=== PATIENT | male | born 1950 | race African-American/Black ===

== ENCOUNTER 2016-10-01 13:01 | Inpatient (IN) | payer MEDICARE, OTHER, MEDICAID ==
[~2016-10-01] VITALS: Ht 182.9 cm; Wt 81.8 kg
[~2016-10-01 13:01] MED LIST: ACETAMINOPHEN-1 EAC1 ORAL; ASPIRIN81 M3 PO; ATORVASTATIN CA80 MG ORAL; PLAVIX75 MG ORAL; TIMOPTIC 0.25%1 DROP BOTH EYES
--- NOTE | 2016-10-01 13:23 | Emergency Room Report ---
History of Present Illness General Chief Complaint: Altered Level of Consciousness Source: Patient Present Illness HPI Patient presents with altered level of consciousness. Paramedics were called across the street from the hospital to the private medical building. This patient was there from [facility] for treatment of his throat cancer. Apparently he was lethargic. Accucheck in field = 92. The patient is being treated for ENT cancer. Is on multiple pain medications including fentanyl patches and Dilaudid. The patient denies any chest pain, shortness of breath, nausea, vomiting. He does state that his mouth is dry. He is NPO and fed by a G tube. 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 He denies cough or dyspnea. No chest pain, NVD, dysuria. Allergies: Coded Allergies: NO KNOWN DRUG ALLERGIES (Verified Allergy, Unknown, 03/06/14) Patient History Past Medical History: see triage record Past Surgical History: other - G tube Social History: Denies: alcohol use - prior, drug use, smoking - prior Social History Narrative snf Reviewed Nursing Documentation: PMH: Agreed, PSxH: Agreed Nursing Documentation-PMH Hx Cardiac Problems: No Hx Cancer: Yes - THROAT CA 01/2016 Hx Gastrointestinal Problems: Yes - DYSPHAGIA Hx Neurological Problems: Yes Hx Cerebrovascular Accident: Yes Review of Systems All Other Systems: negative except mentioned in HPI Physical Exam Vital Signs Date Time Temp Pulse Resp B/P Pulse Ox O2 Delivery O2 Flow Rate FiO2 10/01/16 13:01 99.0 88 14 106/72 99 Room Air Sp02 EP Interpretation: reviewed, normal General Appearance: no apparent distress, lethargic, Chronically Ill Head: normocephalic, atraumatic Eyes: bilateral eye PERRL, bilateral eye conjunctivae pale ENT: dry mucus membranes - mucoid buildup, other - exophytic lesions lips Neck: supple Respiratory: lungs clear, normal breath sounds Cardiovascular #1: regular rate, rhythm, other - PICC L arm, edema - bilateral feet Cardiovascular #2: 2+ radial (R) Gastrointestinal: normal inspection, normal bowel sounds, non tender, no mass, non-distended, other - G tube, scaphoid Rectal: heme negative stool - brown Musculoskeletal: back normal, gait/station normal, normal range of motion Neurologic: DTRs symmetric, sensory intact, motor weakness - generalized, other - mumbling speech, grossly normal, oriented - X2 Psychiatric: other - lethargic and mumbling, but coop and tries to answer Reflexes: 2+ knee (R), 2+ knee (L) Skin: warm/dry, pallor Medical Decision Making Diagnostic Impression: Primary Impression: Sepsis Qualified Codes: A41.9 - Sepsis, unspecified organism Additional Impressions: Anemia Qualified Codes: D64.9 - Anemia, unspecified Bilateral pulmonary infiltrates on chest x-ray Pneumothorax, left Lethargy Hypercalcemia ER Course Patient presents with lethargy while waiting to get treatment for throat cancer. He has a non-focal neurologic exam. Differential includes: Electrolyte abnormality, excess analgesia, adverse reaction to medication, occult infection amongst others. He is quite pale and there is a consideration for blood transfusion also. Evaluation with EKG, CXR, CT head and labs. Treatment with hydration and repeated evaluations. Non-focal neuro suggests global problem - CT head expected neg. CXR with bilateral infiltrates. Lactate elevated. High calcium. Due to elevated lactate, fluid bolus ordered and antibiotics. Discussed with Dr. Beverly. Discussed with Dr. Anthony. Dr. Hernández called stating there is small pneumothorax L. Place on 100% O2. No chest tube indicated at this time. Patient somewhat improved. Admit telemetry, Dr. Beverly. Laboratory Tests Test 10/01/16 15:35 10/01/16 17:30 10/01/16 20:30 White Blood Count 6.8 K/UL (4.8-10.8) Red Blood Count 2.80 M/UL (4.70-6.10) L Hemoglobin 8.6 G/DL (14.2-18.0) L Hematocrit 27.8 % (42.0-52.0) L Mean Corpuscular Volume 99 FL (80-99) Mean Corpuscular Hemoglobin 30.9 PG (27.0-31.0) Mean Corpuscular Hemoglobin Concent 31.1 G/DL (32.0-36.0) L Red Cell Distribution Width 17.5 % (11.6-14.8) H Platelet Count 215 K/UL (150-450) Mean Platelet Volume 6.7 FL (6.5-10.1) Neutrophils (%) (Auto) 84.3 % (45.0-75.0) H Lymphocytes (%) (Auto) 6.7 % (20.0-45.0) L Monocytes (%) (Auto) 6.8 % (1.0-10.0) Eosinophils (%) (Auto) 1.3 % (0.0-3.0) Basophils (%) (Auto) 0.8 % (0.0-2.0) Sodium Level 138 mEQ/L (135-145) Potassium Level 3.7 mEQ/L (3.4-4.9) Chloride Level 96 mEQ/L (98-107) L Carbon Dioxide Level 32 mEQ/L (20-30) H Anion Gap 10 (5-15) Blood Urea Nitrogen 18 mg/dL (7-23) Creatinine 0.8 mg/dL (0.7-1.2) Estimate Glomerular Filtration Rate > 60 mL/min (>60) Glucose Level 87 mg/dL (74-106) Lactic Acid Level 2.30 mmol/L (0.66-2.22) H 1.10 mmol/L (0.66-2.22) Calcium Level 12.5 mg/dL (8.6-10.2) H Total Bilirubin 0.7 mg/dL (0.0-1.2) Aspartate Amino Transferase (AST) 130 U/L (5-40) H Alanine Aminotransferase (ALT) 68 U/L (3-41) H Alkaline Phosphatase 68 U/L (40-129) Total Creatine Kinase 117 U/L (38-174) Troponin I < 0.30 ng/mL (<=0.30) Pro-B-Type Natriuretic Peptide 465 pg/mL (0-125) H Total Protein 7.9 g/dL (6.6-8.7) Albumin 2.7 g/dL (3.5-5.2) L Globulin 5.2 g/dL Albumin/Globulin Ratio 0.5 (1.0-2.7) L Thyroid Stimulating Hormone (TSH) 2.270 uIU/mL (0.300-4.500) Salicylates Level < 1 mg/dL (10-30) L Acetaminophen Level < 10 ug/mL (10-30) L Serum Alcohol < 10 mg/dL Urine Color Pale yellow Urine Appearance Clear Urine pH 9 (4.5-8.0) Urine Specific [place] 1.015 (1.005-1.035) Urine Protein Negative (NEGATIVE) Urine Glucose (UA) Negative (NEGATIVE) Urine Ketones Negative (NEGATIVE) Urine Occult Blood Negative (NEGATIVE) Urine Nitrite Negative (NEGATIVE) Urine Bilirubin Negative (NEGATIVE) Urine Urobilinogen Normal MG/DL (0.0-1.0) Urine Leukocyte Esterase 3+ (NEGATIVE) H Urine RBC 0-2 /HPF (0 - 0) H Urine WBC 2-4 /HPF (0 - 0) Urine Squamous Epithelial Cells None /LPF (NONE/OCC) Urine Bacteria Few /HPF (NONE) Urine Opiates Screen Negative (NEGATIVE) Urine Barbiturates Screen Negative (NEGATIVE) Phencyclidine (PCP) Screen Negative (NEGATIVE) Urine Amphetamines Screen Negative (NEGATIVE) Urine Benzodiazepines Screen Negative (NEGATIVE) Urine Cocaine Screen Negative (NEGATIVE) Urine Marijuana (THC) Screen Negative (NEGATIVE) EKG Diagnostic Results Rate: normal Rhythm: NSR ST Segments: no acute changes Rhythm Strip Diag. Results EP Interpretation: yes Rhythm: NSR, no PVC's, no ectopy Chest X-Ray Diagnostic Results Chest X-Ray Ordered: Yes # of Views/Limited/Complete: 1 View EP Interpretation: Yes Interpretation: no effusion, other - L pneumothorax = small, bilateral infiltrates CT/MRI/US Diagnostic Results CT/MRI/US Diagnostic Results : Imaging Test Ordered: head Impression age related changes Last Vital Signs Date Time Temp Pulse Resp B/P Pulse Ox O2 Delivery O2 Flow Rate FiO2 10/01/16 19:46 99.0 71 22 127/69 100 Non-Rebreather Status: improved Disposition: ADMITTED INPATIENT Condition: Serious Shreyas Ferguson M.D. Oct 01, 2016 13:23
[2016-10-01 14:19] VITALS: BP 121/78
--- NOTE | 2016-10-01 15:23 | Diagnostic Imaging Report ---
Indication: Chest pain Technique: One view of the chest Comparison: none Findings: There is suggestion of a small left apical pneumothorax. There is right apical pleural thickening. There are bilateral perihilar interstitial and alveolar infiltrates versus edema. There is also mostly interstitial disease in the right upper lobe. There is a small to moderate right-sided pleural effusion. Heart size is upper limits normal. There is a right arm midline, tip of which projects at the level of the subclavian vein. Impression: Suspect tiny left apical pneumothorax. Further followup radiograph recommended. This critical value was phoned to Dr. Ferguson in the emergency department at the time of interpretation Bilateral mostly perihilar interstitial and alveolar infiltrates versus edema and right upper lobe interstitial disease. May reflect pneumonia or pulmonary edema among other possible etiologies. Correlate with clinical findings Right-sided small to moderate pleural effusion Right apical pleural thickening Right arm midline
[2016-10-01 15:56] LABS: BASOPHILS % (AUTO) 0.8 % (0.0-2.0); EOSINOPHILS % (AUTO) 1.3 % (0.0-3.0); LYMPHOCYTES % (AUTO) 6.7 % (20.0-45.0); MEAN CORPUSCULAR HEMOGLOBIN 30.9 PG (27.0-31.0); MEAN CORPUSCULAR HGB CONC 31.1 G/DL (32.0-36.0); MEAN CORPUSCULAR VOLUME 99 FL (80-99); MEAN PLATELET VOLUME 6.7 FL (6.5-10.1); MONOCYTES % (AUTO) 6.8 % (1.0-10.0); NEUTROPHILS % (AUTO) 84.3 % (45.0-75.0); PLATELET COUNT 215 K/UL (150-450); RED CELL DISTRIBUTION WIDTH 17.5 % (11.6-14.8); WHITE BLOOD COUNT 6.8 K/UL (4.8-10.8)
[2016-10-01 16:00] VITALS: BP 124/68
[2016-10-01 16:21] LABS: TROPONIN I < 0.30 ng/mL (<=0.30)
[2016-10-01 16:24] LABS: ACETAMINOPHEN < 10 ug/mL (10-30); ALANINE AMINOTRANSFERASE 68 U/L (3-41); ALBUMIN/GLOBULIN RATIO 0.5 (1.0-2.7); ALCOHOL < 10 mg/dL; ANION GAP 10 (5-15); ASPARTATE AMINO TRANSFERASE 130 U/L (5-40); CALCIUM 12.5 mg/dL (8.6-10.2); CARBON DIOXIDE 32 mEQ/L (20-30); CHLORIDE 96 mEQ/L (98-107); CREATININE 0.8 mg/dL (0.7-1.2); GLOMERULAR FILTRATION RATE > 60 mL/min (>60); HEMOLYSIS 2; POTASSIUM 3.7 mEQ/L (3.4-4.9); SODIUM 138 mEQ/L (135-145); TOTAL PROTEIN 7.9 g/dL (6.6-8.7)
[2016-10-01 16:26] LABS: REFLEX LACTIC ACID YES OR NO YES
[2016-10-01] MEDS ORDERED: Vancomycin 1.5 GM in D5W 325 ML IVPB STA (16:39)
[2016-10-01] MEDS ORDERED: Cefepime HCl 1 GM in D5W 55 ML IVPB ONE (16:45)
[2016-10-01] MEDS ORDERED: Cefepime 1gm vial ONE (17:45)
[2016-10-01] MEDS ORDERED: Tubing IV Secondary IV ONE (17:46)
[2016-10-01] MEDS ORDERED: Tubing IV Cassette IV ONE (17:46)
[2016-10-01] MEDS ORDERED: D5W 55 ML IV ONE (17:46)
[2016-10-01 18:00] VITALS: BP 127/69
[2016-10-01 18:06] LABS: APPEARANCE,URINE CLEAR; KETONES,URINE NEGATIVE (NEGATIVE); LEUKOCYTE ESTERASE ,URINE 3+ (NEGATIVE); NITRITE,URINE NEGATIVE (NEGATIVE); PH,URINE 9 (4.5-8.0); PROTEIN,URINE NEGATIVE (NEGATIVE); UROBILINOGEN,URINE NORMAL MG/DL (0.0-1.0)
[2016-10-01 18:12] LABS: RBC,URINE 0-2 /HPF (0 - 0)
[2016-10-01 18:13] LABS: BACTERIA,URINE FEW /HPF
[2016-10-01] MEDS ORDERED: Albuterol ud Inhalation HHN PRN (18:30)
[2016-10-01] MEDS ORDERED: Miralax 17gm pkt ORAL PRN (18:30)
[2016-10-01] MEDS ORDERED: Morphine Sulfate 2mg/ml Inj IVP PRN (18:30)
--- NOTE | 2016-10-01 18:36 | History & Physical ---
History and Physical History & Physicial HISTORY AND PHYSICAL EXAMINATION DATE OF ADMISSION: ~10/01/16 CHIEF COMPLAINT: ~ AMS HISTORY OF PRESENT ILLNESS: ~This is a 65-year-old, male with history of CVA, hypertension, scalp folliculitis, glaucoma, hepatitis B, major depressive disorder, hyperlipidemia, CKD stage 3, tonsillar SCC s/p PEG placement who presents to ER from home for AMS. [facility] and was brought over to ER for AMS. He has a lot of secretions from throat and has failed multiple swallow evaluations after which he had a PEG placed in the past. PET scan recently at [facility] on 09/27 showed increase hypermetabolic activity in lungs PAST MEDICAL HISTORY: ~Includes folliculitis, history of CVA, hepatitis B, glaucoma, chronic lower back pain, major depressive disorder, erectile dysfunction, history of noncompliance, left-sided hip pain with sciatica, right inguinal hernia. ~ PAST SURGICAL HISTORY: ~None. ALLERGIES: ~No known drug allergies. MEDICATIONS: ~ Active Scripts Medications Dose Route/Sig Max Daily Dose Days Date Category Tylenol #3 Tab* (Acetaminophen/Codeine Phosphate) 1 Each Tablet 1 Tab ORAL Q4H PRN 07/28/14 Reported Lipitor* (Atorvastatin Calcium) 80 Mg Tablet 80 Mg ORAL BEDTIME 03/09/14 Rx Aspirin 81 Mg Tab.chew 81 Mg PO DAILY 03/09/14 Rx Timolol Maleate 1 Drop Soln 1 Drop BOTH EYES DAILY 03/06/14 Reported SOCIAL HISTORY: ~Patient does not smoke, drink alcohol, or use any drugs. REVIEW OF SYSTEMS: A 12-point review of systems is negative except for pertinent positives mentioned above. FAMILY HISTORY: ~Noncontributory. PHYSICAL EXAMINATION: Last 24 Hour Vital Signs Date Time Temp Pulse Resp B/P Pulse Ox O2 Delivery O2 Flow Rate FiO2 10/01/16 16:00 70 20 124/68 100 Non-Rebreather 10/01/16 14:19 68 22 121/78 97 Room Air 10/01/16 13:01 99.0 88 14 106/72 99 Room Air GENERAL: ~In no acute distress. ~The patient has a muffled voice. has lots of secretions from throat HEENT: ~~NC/AT ~ NECK: ~~Supple. ~No JVD CARDIOVASCULAR: ~~Regular rate and rhythm. ~Normal S1, S2. ~~ LUNGS: ~Clear to auscultation bilaterally. ~No crackles, rhonchi, or rales. ~ ABDOMEN: ~~Soft, no TTP. + G-tube with bilious material EXTREMITIES: ~~No clubbing, cyanosis, or edema. ~~ SKIN: ~Normal skin color. ~No lesions. PSYCH: ~Appropriate mood and affect. NEURO: Can more all extremities. LABORATORY: ~ Laboratory Tests Test 10/01/16 15:35 10/01/16 17:30 White Blood Count 6.8 K/UL (4.8-10.8) Red Blood Count 2.80 M/UL (4.70-6.10) L Hemoglobin 8.6 G/DL (14.2-18.0) L Hematocrit 27.8 % (42.0-52.0) L Mean Corpuscular Volume 99 FL (80-99) Mean Corpuscular Hemoglobin 30.9 PG (27.0-31.0) Mean Corpuscular Hemoglobin Concent 31.1 G/DL (32.0-36.0) L Red Cell Distribution Width 17.5 % (11.6-14.8) H Platelet Count 215 K/UL (150-450) Mean Platelet Volume 6.7 FL (6.5-10.1) Neutrophils (%) (Auto) 84.3 % (45.0-75.0) H Lymphocytes (%) (Auto) 6.7 % (20.0-45.0) L Monocytes (%) (Auto) 6.8 % (1.0-10.0) Eosinophils (%) (Auto) 1.3 % (0.0-3.0) Basophils (%) (Auto) 0.8 % (0.0-2.0) Sodium Level 138 mEQ/L (135-145) Potassium Level 3.7 mEQ/L (3.4-4.9) Chloride Level 96 mEQ/L (98-107) L Carbon Dioxide Level 32 mEQ/L (20-30) H Anion Gap 10 (5-15) Blood Urea Nitrogen 18 mg/dL (7-23) Creatinine 0.8 mg/dL (0.7-1.2) Estimat Glomerular Filtration Rate > 60 mL/min (>60) Glucose Level 87 mg/dL (74-106) Lactic Acid Level 2.30 mmol/L (0.66-2.22) H Calcium Level 12.5 mg/dL (8.6-10.2) H Total Bilirubin 0.7 mg/dL (0.0-1.2) Aspartate Amino Transf (AST/SGOT) 130 U/L (5-40) H Alanine Aminotransferase (ALT/SGPT) 68 U/L (3-41) H Alkaline Phosphatase 68 U/L (40-129) Total Creatine Kinase 117 U/L (38-174) Troponin I < 0.30 ng/mL (<=0.30) Pro-B-Type Natriuretic Peptide 465 pg/mL (0-125) H Total Protein 7.9 g/dL (6.6-8.7) Albumin 2.7 g/dL (3.5-5.2) L Globulin 5.2 g/dL Albumin/Globulin Ratio 0.5 (1.0-2.7) L Thyroid Stimulating Hormone (TSH) 2.270 uIU/mL (0.300-4.500) Salicylates Level < 1 mg/dL (10-30) L Acetaminophen Level < 10 ug/mL (10-30) L Serum Alcohol < 10 mg/dL Urine Color Pale yellow Urine Appearance Clear Urine pH 9 (4.5-8.0) Urine Specific [place] 1.015 (1.005-1.035) Urine Protein Negative (NEGATIVE) Urine Glucose (UA) Negative (NEGATIVE) Urine Ketones Negative (NEGATIVE) Urine Occult Blood Negative (NEGATIVE) Urine Nitrite Negative (NEGATIVE) Urine Bilirubin Negative (NEGATIVE) Urine Urobilinogen Normal MG/DL (0.0-1.0) Urine Leukocyte Esterase 3+ (NEGATIVE) H Urine RBC 0-2 /HPF (0 - 0) H Urine WBC 2-4 /HPF (0 - 0) Urine Squamous Epithelial Cells None /LPF (NONE/OCC) Urine Bacteria Few /HPF (NONE) Urine Opiates Screen Negative (NEGATIVE) Urine Barbiturates Screen Negative (NEGATIVE) Phencyclidine (PCP) Screen Negative (NEGATIVE) Urine Amphetamines Screen Negative (NEGATIVE) Urine Benzodiazepines Screen Negative (NEGATIVE) Urine Cocaine Screen Negative (NEGATIVE) Urine Marijuana (THC) Screen Negative (NEGATIVE) CXR - ?bilateral upper lobe infiltrates vs metastasis 09/27 at [facility] PET SCAN - Impression 1. Progression of the extent of malignant disease in the left our pharyngeal soft tissues 2. Extensive hypermetabolic lymphadenopathy in mediastinal and hilar regions, extending to left upper abdominal retrocrural region 3. Extensive pulmonary parenchymal abnormalities that are intensely hypermetabolic, with greater extent of nodular masses on CT. Presence of extensive malignant disease is suspected however the differential for this PET/CT appearance includes widespread inflammatory/infectious processes. Left lower lobe and right middle lobe opacities may be suitable for CT-guided biopsy, if indicated to establish pathologic diagnosis. 4. 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 2. Hepatitis C. 3.History of cerebrovascular accident. 4.Hepatitis B. 5.Major depressive disorder. 6.Hypertension. 7.Chronic lower back pain. 8. ~~Malnutrition s/p PEG placement 9. ~~Failure to thrive 11. ~Aspiration PNA 12. ~~ Possible bilateral lung metastasis PLAN: 1 Tele 2 Tube feeds - hold 3. ~~IVF - D5NS @ 75cc/hr ; suction Q 2 hours 4. ~~Resume meds from SNF 5. ~~NPO 6. ~~Heme/Onc consult with Dr. Anthony 7. ~~ abx - Zosyn 8. ~~Will discuss CT chest with IV contrast DVT - heparin CLAUDIA HARRIS M.D. Oct 01, 2016 18:36
[2016-10-01] MEDS ORDERED: LEXAPRO20 MG ORAL (19:07)
[2016-10-01] MEDS ORDERED: SENNA8.6 M2 PO (19:07)
[2016-10-01] MEDS ORDERED: GABAPENTIN300 MG ORAL (19:07)
[2016-10-01] MEDS ORDERED: CATAPRES0.1 MG ORAL (19:07)
[2016-10-01] MEDS ORDERED: DILAUDID2 MG ORAL (19:07)
[2016-10-01] MEDS ORDERED: ATORVASTATIN CA80 MG ORAL (19:07)
[2016-10-01] MEDS ORDERED: MIRALAX17 G2 ORAL (19:07)
[2016-10-01] MEDS ORDERED: FENTANYL1 EAC4 TDERMAL (19:07)
[2016-10-01] MEDS ORDERED: OXYCODONE-ACET1 EAC3 ORAL (19:07)
[2016-10-01] MEDS ORDERED: GLYCOPYRROLATE1 MG PO (19:07)
[2016-10-01] MEDS ORDERED: LORAZEPAM1 MG ORAL (19:07)
[2016-10-01] MEDS ORDERED: VANCOMYCIN1 GM/2502 IV (19:07)
[2016-10-01] MEDS ORDERED: TYLENOL650 MG/20. ORAL (19:07)
[2016-10-01] MEDS ORDERED: OXYCODON-ACETA1 EAC2 ORAL (19:07)
[2016-10-01] MEDS ORDERED: LOPERAMIDE2 M1 PO (19:07)
[2016-10-01] MEDS ORDERED: DILAUDID4 MG ORAL (19:07)
[2016-10-01] MEDS ORDERED: PREVACID30 MG ORAL (19:07)
[2016-10-01] MEDS ORDERED: AMLODIPINE BESY10 MG ORAL (19:07)
[2016-10-01] MEDS ORDERED: COMPAZINE10 MG ORAL (19:07)
[2016-10-01] MEDS ORDERED: TAMSULOSIN HCL0.4 MG ORAL (19:07)
[2016-10-01] MEDS ORDERED: TIMOPTIC 0.25%1 EACH OP (19:07)
[2016-10-01] MEDS ORDERED: TIMOPTIC 0.5%1 EACH OP (19:17)
[2016-10-01] MEDS ORDERED: ACETAMINOPHEN325 M1 GT (19:17)
[2016-10-01] MEDS ORDERED: MIRALAX17 G2 GT (19:20)
[2016-10-01] MEDS ORDERED: ANTI-DIARRHEA2 MG GT (19:20)
[2016-10-01] MEDS ORDERED: ZOFRAN ODT8 MG GT (19:24)
[2016-10-01] MEDS ORDERED: MULTIVITAMINS1 EAC8 GT (19:24)
[2016-10-01] MEDS ORDERED: SENNA8.6 M2 GT (19:29)
[2016-10-01] MEDS ORDERED: PRO-STAT LIQUID30 ML ORAL (19:29)
[2016-10-01] MEDS ORDERED: ROXICODONE15 MG ORAL (19:33)
[2016-10-01] MEDS ORDERED: ROXICODONE15 MG GT (19:33)
[2016-10-01] MEDS ORDERED: TRANSDERM-SCOP1 EACH TD (19:36)
[2016-10-01] MEDS ORDERED: Vancomycin 1gm inj IVPB ONE (19:53)
[2016-10-01] MEDS ORDERED: Atorvastatin 80mg tab ORAL SCH (21:00)
[2016-10-01] MEDS: Heparin 5000 units/ml inj SUBQ SCH (21:44)
[2016-10-01] MEDS: Piperacillin/Tazobactam 3.375 GM in NS 110 ML IVPB SCH (21:59)
[2016-10-02] VITALS: BP 114/58
[2016-10-02 04:00] VITALS: BP 116/63
[2016-10-02] MEDS: Piperacillin/Tazobactam 3.375 GM in NS 110 ML IVPB SCH ×3 (05:32→21:24)
[2016-10-02 07:09] LABS: MEAN CORPUSCULAR HEMOGLOBIN 31.4 PG (27.0-31.0); MEAN CORPUSCULAR HGB CONC 31.4 G/DL (32.0-36.0); MEAN CORPUSCULAR VOLUME 100 FL (80-99); MEAN PLATELET VOLUME 5.9 FL (6.5-10.1); PLATELET COUNT 240 K/UL (150-450); RED BLOOD COUNT 2.69 M/UL (4.70-6.10); WHITE BLOOD COUNT 9.1 K/UL (4.8-10.8)
[2016-10-02 07:14] LABS: ANION GAP 10 (5-15); CALCIUM 12.3 mg/dL (8.6-10.2); CARBON DIOXIDE 30 mEQ/L (20-30); CHLORIDE 98 mEQ/L (98-107); CREATININE 0.7 mg/dL (0.7-1.2); GLOMERULAR FILTRATION RATE > 60 mL/min (>60); HEMOLYSIS 0; POTASSIUM 3.6 mEQ/L (3.4-4.9); SODIUM 138 mEQ/L (135-145)
--- NOTE | 2016-10-02 08:31 | Diagnostic Imaging Report ---
Indication: Altered level of consciousness Technique: spiral acquisitions obtained through the brain. Angled axial and coronal 5 x 5 mm slices were reconstructed. No IV contrast utilized. Radiation dose was minimized using automated exposure control Total dose length product 1544 mGycm. CTDIvol(s) 70 mGy Comparison: Brain MRI dated 03/08/2014 FINDINGS: No acute hemorrhage or edema. No mass effect or midline shift. There is age-related enlargement of the ventricles and extra axial CSF spaces. There is periventricular deep white matter ischemic change. Old lacunar infarcts are seen in the right basal ganglia and norman radiata. Normal guevara-white differentiation. Visualized orbits are unremarkable. Visualized sinuses are unremarkable. Intact calvarium. There is calvarial hyperostosis. IMPRESSION: Chronic and age-related changes. Negative for acute intracranial bleed or mass effect The CT scanner at [facility] is accredited by the [employer] and the scans are performed using protocols designed to limit radiation exposure to as low as reasonably achievable to attain images of sufficient resolution adequate for diagnostic evaluation
[2016-10-02 08:32] VITALS: BP 140/83
[2016-10-02] MEDS: Heparin 5000 units/ml inj SUBQ SCH ×2 (08:52→20:55)
[2016-10-02] MEDS: Timoptic 0.25% Op Soln 2.5ml BOTH EYES SCH (08:52)
[2016-10-02] MEDS ORDERED: Dyna-Hex 2% Top Sol 8oz TOPIC ONE (09:00)
[2016-10-02] MEDS ORDERED: Aspirin Baby 81mg ORAL SCH (09:00)
[2016-10-02 10:48] LABS: BAND NEUTROPHILS % (MANUAL) 1 % (0-8); BASOPHILS % (MANUAL) 0 % (0-2); EOSINOPHILS % (MANUAL) 0 % (0-3); LYMPHOCYTES % (MANUAL) 10 % (20-45); NEUTROPHILS % (MANUAL) 83 % (45-75); PLATELET ESTIMATE ADEQUATE; PLATELET MORPHOLOGY NORMAL; TOTAL CELLS COUNTED 100
[2016-10-02 10:49] LABS: ANISOCYTOSIS 2+; HYPOCHROMASIA 1+; MACROCYTES 1+
[2016-10-02] MEDS ORDERED: Tamsulosin 0.4mg cap ORAL SCH (11:00)
[2016-10-02 12:00] VITALS: BP 132/75
[2016-10-02] MEDS: D5NS 1,000 ML IV SCH (13:07)
--- NOTE | 2016-10-02 13:14 | Internal Med Progress Note ---
Subjective Physician Name Shreyas Harris Attending Physician Shreyas Harris M.D. Current Medications Medications (Trade) Dose Ordered Sig/Dmitri Route PRN Reason Start Time Stop Time Status Last Admin Dose Admin Acetaminophen (Tylenol) 650 mg Q4H PRN ORAL Mild Pain (Pain Scale 1-3) 10/01/16 18:30 10/31/16 18:29 Albuterol Sulfate (Proventil) 2.5 mg Q4H PRN HHN Shortness of Breath 10/01/16 18:30 10/06/16 18:29 Aspirin (ASA) 81 mg DAILY ORAL 10/02/16 09:00 11/01/16 08:59 Atorvastatin Calcium (Lipitor) 80 mg BEDTIME ORAL 10/01/16 21:00 10/31/16 20:59 10/01/16 21:41 Atorvastatin Calcium (Lipitor) 80 mg DAILY ORAL 10/03/16 11:00 11/02/16 10:59 Bisacodyl (Dulcolax) 10 mg HSPRN PRN RECTAL Constipation 10/01/16 18:30 10/31/16 18:29 Dextrose (Dextrose 50%) STAT PRN IV Hypoglycemia 10/01/16 18:30 10/31/16 18:29 Dextrose/Sodium Chloride (D5ns) 1,000 ml @ 75 mls/hr [id number] IV 10/02/16 13:30 11/01/16 13:29 10/02/16 13:07 Gabapentin (Neurontin) 300 mg THREE TIMES A DAY ORAL 10/02/16 13:00 11/01/16 12:59 Heparin Sodium (Porcine) (Heparin 5000 units/ml) 5,000 units EVERY 12 HOURS SUBQ 10/01/16 21:00 10/31/16 20:59 10/01/16 21:44 Morphine Sulfate (Morphine Sulfate) 2 mg Q4H PRN IVP Moderate Pain (Pain Scale 4-6) 10/01/16 18:30 10/08/16 18:29 Ondansetron HCl (Zofran) 4 mg Q6H PRN IVP Nausea & Vomiting 10/01/16 18:30 10/31/16 18:29 Piperacillin Sod/ Tazobactam Sod/ Sodium Chloride (Zosyn/Sodium Chloride) 110 ml @ 27.5 mls/hr Q8HR IVPB 10/01/16 22:00 10/08/16 21:59 10/02/16 13:01 Polyethylene Glycol (Miralax) 17 gm HSPRN PRN ORAL Constipation 10/01/16 18:30 10/31/16 18:29 Tamsulosin HCl 0.4 mg 0.4 mg DAILY ORAL 10/02/16 11:00 11/01/16 10:59 Timolol Maleate 1 drop 1 drop DAILY BOTH EYES 10/02/16 09:00 11/01/16 08:59 10/02/16 08:52 Allergies: Coded Allergies: NO KNOWN DRUG ALLERGIES (Verified Allergy, Unknown, 03/06/14) ROS Limited/Unobtainable: Yes - still having confusion Subjective didnt sleep well still confused muffled voice denies SOB or pain 12 pt ROS limited bc of mental status Objective Last Vital Signs Date Time Temp Pulse Resp B/P Pulse Ox O2 Delivery O2 Flow Rate FiO2 10/02/16 12:00 97.0 72 20 132/75 96 Nasal Cannula 2.0 Laboratory Tests Test 10/01/16 15:35 10/01/16 17:30 10/01/16 20:30 10/02/16 05:25 White Blood Count 6.8 K/UL (4.8-10.8) 9.1 K/UL (4.8-10.8) Red Blood Count 2.80 M/UL (4.70-6.10) L 2.69 M/UL (4.70-6.10) L Hemoglobin 8.6 G/DL (14.2-18.0) L 8.5 G/DL (14.2-18.0) L Hematocrit 27.8 % (42.0-52.0) L 27.0 % (42.0-52.0) L Mean Corpuscular Volume 99 FL (80-99) 100 FL (80-99) H Mean Corpuscular Hemoglobin 30.9 PG (27.0-31.0) 31.4 PG (27.0-31.0) H Mean Corpuscular Hemoglobin Concent 31.1 G/DL (32.0-36.0) L 31.4 G/DL (32.0-36.0) L Red Cell Distribution Width 17.5 % (11.6-14.8) H 18.0 % (11.6-14.8) H Platelet Count 215 K/UL (150-450) 240 K/UL (150-450) Mean Platelet Volume 6.7 FL (6.5-10.1) 5.9 FL (6.5-10.1) L Neutrophils (%) (Auto) 84.3 % (45.0-75.0) H % (45.0-75.0) Lymphocytes (%) (Auto) 6.7 % (20.0-45.0) L % (20.0-45.0) Monocytes (%) (Auto) 6.8 % (1.0-10.0) % (1.0-10.0) Eosinophils (%) (Auto) 1.3 % (0.0-3.0) % (0.0-3.0) Basophils (%) (Auto) 0.8 % (0.0-2.0) % (0.0-2.0) Sodium Level 138 mEQ/L (135-145) 138 mEQ/L (135-145) Potassium Level 3.7 mEQ/L (3.4-4.9) 3.6 mEQ/L (3.4-4.9) Chloride Level 96 mEQ/L (98-107) L 98 mEQ/L (98-107) Carbon Dioxide Level 32 mEQ/L (20-30) H 30 mEQ/L (20-30) Anion Gap 10 (5-15) 10 (5-15) Blood Urea Nitrogen 18 mg/dL (7-23) 15 mg/dL (7-23) Creatinine 0.8 mg/dL (0.7-1.2) 0.7 mg/dL (0.7-1.2) Estimat Glomerular Filtration Rate > 60 mL/min (>60) > 60 mL/min (>60) Glucose Level 87 mg/dL (74-106) 80 mg/dL (74-106) Lactic Acid Level 2.30 mmol/L (0.66-2.22) H 1.10 mmol/L (0.66-2.22) Calcium Level 12.5 mg/dL (8.6-10.2) H 12.3 mg/dL (8.6-10.2) H Total Bilirubin 0.7 mg/dL (0.0-1.2) Aspartate Amino Transf (AST/SGOT) 130 U/L (5-40) H Alanine Aminotransferase (ALT/SGPT) 68 U/L (3-41) H Alkaline Phosphatase 68 U/L (40-129) Total Creatine Kinase 117 U/L (38-174) Troponin I < 0.30 ng/mL (<=0.30) Pro-B-Type Natriuretic Peptide 465 pg/mL (0-125) H Total Protein 7.9 g/dL (6.6-8.7) Albumin 2.7 g/dL (3.5-5.2) L Globulin 5.2 g/dL Albumin/Globulin Ratio 0.5 (1.0-2.7) L Thyroid Stimulating Hormone (TSH) 2.270 uIU/mL (0.300-4.500) Salicylates Level < 1 mg/dL (10-30) L Acetaminophen Level < 10 ug/mL (10-30) L Serum Alcohol < 10 mg/dL Urine Color Pale yellow Urine Appearance Clear Urine pH 9 (4.5-8.0) Urine Specific [place] 1.015 (1.005-1.035) Urine Protein Negative (NEGATIVE) Urine Glucose (UA) Negative (NEGATIVE) Urine Ketones Negative (NEGATIVE) Urine Occult Blood Negative (NEGATIVE) Urine Nitrite Negative (NEGATIVE) Urine Bilirubin Negative (NEGATIVE) Urine Urobilinogen Normal MG/DL (0.0-1.0) Urine Leukocyte Esterase 3+ (NEGATIVE) H Urine RBC 0-2 /HPF (0 - 0) H Urine WBC 2-4 /HPF (0 - 0) Urine Squamous Epithelial Cells None /LPF (NONE/OCC) Urine Bacteria Few /HPF (NONE) Urine Opiates Screen Negative (NEGATIVE) Urine Barbiturates Screen Negative (NEGATIVE) Phencyclidine (PCP) Screen Negative (NEGATIVE) Urine Amphetamines Screen Negative (NEGATIVE) Urine Benzodiazepines Screen Negative (NEGATIVE) Urine Cocaine Screen Negative (NEGATIVE) Urine Marijuana (THC) Screen Negative (NEGATIVE) Differential Total Cells Counted 100 Neutrophils % (Manual) 83 % (45-75) H Lymphocytes % (Manual) 10 % (20-45) L Monocytes % (Manual) 6 % (1-10) Eosinophils % (Manual) 0 % (0-3) Basophils % (Manual) 0 % (0-2) Band Neutrophils 1 % (0-8) Platelet Estimate Adequate Platelet Morphology Normal Hypochromasia 1+ Anisocytosis 2+ Macrocytosis 1+ Intake and Output 10/01/16 10/02/16 19:00 07:00 Intake Total 0 ml 662.5 ml Output Total 2700 ml Balance 0 ml -2037.5 ml Intake Oral 0 ml IV Total 662.5 ml Output Urine Total 2700 ml Objective GENERAL: ~In no acute distress. ~The patient has a muffled voice. has lots of secretions from throat HEENT: ~~NC/AT ~ NECK: ~~Supple. ~No JVD CARDIOVASCULAR: ~~Regular rate and rhythm. ~Normal S1, S2. ~~ LUNGS: ~Clear to auscultation bilaterally. ~No crackles, rhonchi, or rales. ~ ABDOMEN: ~~Soft, no TTP. + G-tube with bilious material EXTREMITIES: ~~No clubbing, cyanosis, or edema. ~~ SKIN: ~Normal skin color. ~No lesions. PSYCH: ~Appropriate mood and affect. NEURO: Can more all extremities. 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 2. Hepatitis C. 3.History of cerebrovascular accident. 4.Hepatitis B. 5.Major depressive disorder. 6.Hypertension. 7.Chronic lower back pain. 8. ~~Malnutrition s/p PEG placement 9. ~~Failure to thrive 11. ~Aspiration PNA 12. ~~ Possible bilateral lung metastasis 13. ~~Metabolic encephalopathy 2/2 PNA 14. ~~Endocarditis PLAN: 1 Tele 2 Tube feeds - restart nutren @ 30cc/hr with free water 400cc TID 3. ~~IVF - D5NS @ 75cc/hr ; suction orally Q 2 hours; patient is most likely chronically aspirating on secretions. continue scopolamine patch 4. ~~Resume meds from SNF 5. ~~NPO 6. ~~Heme/Onc consult with Dr. Anthony 7. ~~ abx - Zosyn ; Vancomycin for endocarditis (dx at [facility] and needs to complete 6 weeks) 8. ~~Will discuss CT chest with IV contrast 9. ~~resume home medications DVT - heparin SHREYAS HARRIS M.D. Oct 02, 2016 13:14
[2016-10-02] MEDS ORDERED: Miralax 17gm pkt GT PRN (13:30)
[2016-10-02] MEDS ORDERED: oxyCODONE 15mg IR tab GT PRN ×2 (13:30)
--- NOTE | 2016-10-02 14:10 | Consultation ---
History of Present Illness General Date patient seen: Oct 02, 2016 Chief Complaint: Altered Level of Consciousness Referring physician: Dr. Beverly Present Illness HPI 65 year old male with hx of throat cancer, ? lung mets, Hep C, B, CVA, PEG presents with altered level of consciousness at ENT doctors office. His mental status improved somewhat en route to [facility]. His initial cxr showed that he has extensive bilateral infiltrate. On my evaluation, he was very lethargic. Allergies: Coded Allergies: NO KNOWN DRUG ALLERGIES (Verified Allergy, Unknown, 03/06/14) Medication History Scheduled Amino Acids/Protein Hydrolys (Pro-Stat Liquid), 30 ML ORAL DAILY, (Reported) Aspirin (Aspirin), 81 MG PO DAILY Atorvastatin Calcium* (Lipitor*), 80 MG ORAL BEDTIME Atorvastatin Calcium* (Lipitor*), 80 MG ORAL DAILY, (Reported) Escitalopram Oxalate* (Lexapro*), 20 MG ORAL DAILY, (Reported) Gabapentin* (Gabapentin*), 300 MG ORAL THREE TIMES A DAY, (Reported) Glycopyrrolate (Glycopyrrolate), 1 MG PO TWICE A DAY, (Reported) Multivitamin With Minerals (Multivitamins With Minerals*), 1 TAB GT DAILY, ( Reported) Polyethylene Glycol 3350* (Miralax*), 17 GM GT DAILY, (Reported) Scopolamine (Transderm-Scop), 1 EACH TD Q72H, (Reported) Tamsulosin Hcl (Tamsulosin Hcl*), 0.4 MG ORAL DAILY, (Reported) Timolol Maleate/Pf (Timoptic 0.5% Ocudose Drop), 1 EACH OP DAILY, (Reported) Scheduled PRN Acetaminophen* (Acetaminophen 325MG Tablet*), 650 MG GT Q4H PRN for Mild Pain ( Pain Scale 1-3), (Reported) Loperamide Hcl (Anti-Diarrhea), 2 MG GT for Diarrhea, (Reported) OXYCODONE HCl* (Roxicodone*), 15 MG GT Q4HR PRN for Mild Pain (Pain Scale 1-3), (Reported) OXYCODONE HCl* (Roxicodone*), 30 MG ORAL Q4HR PRN for Severe Pain (Pain Scale 7- 10), (Reported) Ondansetron Odt* (Zofran Odt*), 8 MG GT Q8HR PRN for Nausea & Vomiting, ( Reported) Sennosides (Senna), 17.2 MG GT QHS PRN for Constipation, (Reported) Miscellaneous Medications Fentanyl 12MCG Patch* (Fentanyl 12MCG Patch*), 1 PATCH TDERMAL, (Reported) Vancomycin Hcl/D5w (Vancomycin-D5w 1 G/250 Ml), 500 MG IV, (Reported) Discontinued Medications Acetaminophen With Codeine (T#3) (Tylenol #3 Tab*), 1 TAB ORAL Q4H PRN for For Pain, (Reported) Discontinued Reason: Pt stopped taking med Amlodipine Besylate* (Amlodipine Besylate*), 10 MG ORAL DAILY, (Reported) Discontinued Reason: Therapy completed Clonidine Hcl* (Catapres*), 0.1 MG ORAL DAILY, (Reported) Discontinued Reason: Therapy completed Hydromorphone HCl (Dilaudid), 2 MG ORAL Q4H, (Reported) Discontinued Reason: Therapy completed Hydromorphone HCl (Dilaudid), 4 MG ORAL Q4H, (Reported) Discontinued Reason: Therapy completed Lansoprazole* (Prevacid*), 30 MG ORAL DAILY, (Reported) Discontinued Reason: Therapy completed Lorazepam* (Lorazepam*), 1 MG ORAL HS, (Reported) Discontinued Reason: Therapy completed Oxycodone Hcl/Acetaminophen 5-325* (Oxycodone-Acetaminophen 5-325*), 1 TAB ORAL Q6H PRN for For Pain, (Reported) Discontinued Reason: Therapy completed Oxycodone Hcl/Acetaminophen 7.5-325 (Oxycodon-Acetaminophen 7.5-325), 2 TAB ORAL Q4H, (Reported) Discontinued Reason: Therapy completed Prochlorperazine (Compazine*), 10 MG ORAL Q6H PRN for Nausea & Vomiting, ( Reported) Discontinued Reason: Therapy completed Patient History Healthcare decision maker Resuscitation status Full Code Advanced Directive on File No Past Medical/Surgical History Past Medical/Surgical History: (1) HTN (hypertension) (2) CVA (cerebral infarction) (3) Hepatitis B Review of Systems All Other Systems: negative except mentioned in HPI Physical Exam General Appearance: cachetic Lines, tubes and drains: peripheral HEENT: normocephalic, atraumatic Neck: non-tender, normal alignment Respiratory/Chest: chest wall non-tender, rhonchi - left, stridor Cardiovascular/Chest: normal peripheral pulses, normal rate Abdomen: normal bowel sounds, non tender, other - PEG feeding Genitourinary/Rectal: normal genital exam Extremities: normal range of motion Skin Exam: normal pigmentation Last 24 Hour Vital Signs Date Time Temp Pulse Resp B/P Pulse Ox O2 Delivery O2 Flow Rate FiO2 10/02/16 12:00 97.0 72 20 132/75 96 Nasal Cannula 2.0 10/02/16 08:32 97.0 84 20 140/83 96 Room Air 10/02/16 04:00 98.4 95 20 116/63 92 Nasal Cannula 10/02/16 03:43 94 10/02/16 00:04 86 10/02/16 00:00 98.4 103 22 114/58 94 Nasal Cannula 10/01/16 20:29 70 10/01/16 19:46 99.0 71 22 127/69 100 Non-Rebreather 10/01/16 18:00 71 22 127/69 100 Non-Rebreather 10/01/16 16:00 70 20 124/68 100 Non-Rebreather 10/01/16 14:19 68 22 121/78 97 Room Air Intake and Output 10/01/16 10/02/16 19:00 07:00 Intake Total 0 ml 662.5 ml Output Total 2700 ml Balance 0 ml -2037.5 ml Intake Oral 0 ml IV Total 662.5 ml Output Urine Total 2700 ml Laboratory Tests Test 10/01/16 15:35 10/01/16 17:30 10/01/16 20:30 10/02/16 05:25 White Blood Count 6.8 K/UL (4.8-10.8) 9.1 K/UL (4.8-10.8) Red Blood Count 2.80 M/UL (4.70-6.10) L 2.69 M/UL (4.70-6.10) L Hemoglobin 8.6 G/DL (14.2-18.0) L 8.5 G/DL (14.2-18.0) L Hematocrit 27.8 % (42.0-52.0) L 27.0 % (42.0-52.0) L Mean Corpuscular Volume 99 FL (80-99) 100 FL (80-99) H Mean Corpuscular Hemoglobin 30.9 PG (27.0-31.0) 31.4 PG (27.0-31.0) H Mean Corpuscular Hemoglobin Concent 31.1 G/DL (32.0-36.0) L 31.4 G/DL (32.0-36.0) L Red Cell Distribution Width 17.5 % (11.6-14.8) H 18.0 % (11.6-14.8) H Platelet Count 215 K/UL (150-450) 240 K/UL (150-450) Mean Platelet Volume 6.7 FL (6.5-10.1) 5.9 FL (6.5-10.1) L Neutrophils (%) (Auto) 84.3 % (45.0-75.0) H % (45.0-75.0) Lymphocytes (%) (Auto) 6.7 % (20.0-45.0) L % (20.0-45.0) Monocytes (%) (Auto) 6.8 % (1.0-10.0) % (1.0-10.0) Eosinophils (%) (Auto) 1.3 % (0.0-3.0) % (0.0-3.0) Basophils (%) (Auto) 0.8 % (0.0-2.0) % (0.0-2.0) Sodium Level 138 mEQ/L (135-145) 138 mEQ/L (135-145) Potassium Level 3.7 mEQ/L (3.4-4.9) 3.6 mEQ/L (3.4-4.9) Chloride Level 96 mEQ/L (98-107) L 98 mEQ/L (98-107) Carbon Dioxide Level 32 mEQ/L (20-30) H 30 mEQ/L (20-30) Anion Gap 10 (5-15) 10 (5-15) Blood Urea Nitrogen 18 mg/dL (7-23) 15 mg/dL (7-23) Creatinine 0.8 mg/dL (0.7-1.2) 0.7 mg/dL (0.7-1.2) Estimat Glomerular Filtration Rate > 60 mL/min (>60) > 60 mL/min (>60) Glucose Level 87 mg/dL (74-106) 80 mg/dL (74-106) Lactic Acid Level 2.30 mmol/L (0.66-2.22) H 1.10 mmol/L (0.66-2.22) Calcium Level 12.5 mg/dL (8.6-10.2) H 12.3 mg/dL (8.6-10.2) H Total Bilirubin 0.7 mg/dL (0.0-1.2) Aspartate Amino Transf (AST/SGOT) 130 U/L (5-40) H Alanine Aminotransferase (ALT/SGPT) 68 U/L (3-41) H Alkaline Phosphatase 68 U/L (40-129) Total Creatine Kinase 117 U/L (38-174) Troponin I < 0.30 ng/mL (<=0.30) Pro-B-Type Natriuretic Peptide 465 pg/mL (0-125) H Total Protein 7.9 g/dL (6.6-8.7) Albumin 2.7 g/dL (3.5-5.2) L Globulin 5.2 g/dL Albumin/Globulin Ratio 0.5 (1.0-2.7) L Thyroid Stimulating Hormone (TSH) 2.270 uIU/mL (0.300-4.500) Salicylates Level < 1 mg/dL (10-30) L Acetaminophen Level < 10 ug/mL (10-30) L Serum Alcohol < 10 mg/dL Urine Color Pale yellow Urine Appearance Clear Urine pH 9 (4.5-8.0) Urine Specific [place] 1.015 (1.005-1.035) Urine Protein Negative (NEGATIVE) Urine Glucose (UA) Negative (NEGATIVE) Urine Ketones Negative (NEGATIVE) Urine Occult Blood Negative (NEGATIVE) Urine Nitrite Negative (NEGATIVE) Urine Bilirubin Negative (NEGATIVE) Urine Urobilinogen Normal MG/DL (0.0-1.0) Urine Leukocyte Esterase 3+ (NEGATIVE) H Urine RBC 0-2 /HPF (0 - 0) H Urine WBC 2-4 /HPF (0 - 0) Urine Squamous Epithelial Cells None /LPF (NONE/OCC) Urine Bacteria Few /HPF (NONE) Urine Opiates Screen Negative (NEGATIVE) Urine Barbiturates Screen Negative (NEGATIVE) Phencyclidine (PCP) Screen Negative (NEGATIVE) Urine Amphetamines Screen Negative (NEGATIVE) Urine Benzodiazepines Screen Negative (NEGATIVE) Urine Cocaine Screen Negative (NEGATIVE) Urine Marijuana (THC) Screen Negative (NEGATIVE) Differential Total Cells Counted 100 Neutrophils % (Manual) 83 % (45-75) H Lymphocytes % (Manual) 10 % (20-45) L Monocytes % (Manual) 6 % (1-10) Eosinophils % (Manual) 0 % (0-3) Basophils % (Manual) 0 % (0-2) Band Neutrophils 1 % (0-8) Platelet Estimate Adequate Platelet Morphology Normal Hypochromasia 1+ Anisocytosis 2+ Macrocytosis 1+ Height (Feet): 6 Height (Inches): 0.00 Weight (Pounds): 200 Medications Current Medications Medications (Trade) Dose Ordered Sig/Dmitri Route PRN Reason Start Time Stop Time Status Last Admin Dose Admin Acetaminophen (Tylenol) 650 mg Q4H PRN ORAL Fever/Headache/Mild Pain 10/02/16 14:30 11/01/16 14:29 Albuterol Sulfate (Proventil) 2.5 mg Q4H PRN HHN Shortness of Breath 10/01/16 18:30 10/06/16 18:29 Aspirin (ASA) 81 mg DAILY GT 10/03/16 09:00 11/02/16 08:59 Atorvastatin Calcium (Lipitor) 80 mg BEDTIME GT 10/02/16 21:00 11/01/16 20:59 Bisacodyl (Dulcolax) 10 mg HSPRN PRN RECTAL Constipation 10/01/16 18:30 10/31/16 18:29 Dextrose (Dextrose 50%) STAT PRN IV Hypoglycemia 10/01/16 18:30 10/31/16 18:29 Dextrose/Sodium Chloride (D5ns) 1,000 ml @ 75 mls/hr [id number] IV 10/02/16 13:30 11/01/16 13:29 10/02/16 13:07 Escitalopram Oxalate 20 mg 20 mg DAILY GT 10/02/16 13:30 11/01/16 13:29 UNV Fentanyl (Duragesic) 1 patch EVERY 72 HOURS TDERMAL 10/02/16 13:30 10/09/16 13:29 UNV Gabapentin (Neurontin) 300 mg TID GT 10/02/16 18:00 11/01/16 17:59 Heparin Sodium (Porcine) (Heparin 5000 units/ml) 5,000 units EVERY 12 HOURS SUBQ 10/01/16 21:00 10/31/16 20:59 10/01/16 21:44 Morphine Sulfate (Morphine Sulfate) 2 mg Q4H PRN IVP Moderate Pain (Pain Scale 4-6) 10/01/16 18:30 10/08/16 18:29 Multivitamins Therapeutic (Therapeutic Multivitamin) 1 ea DAILY ORAL 10/03/16 09:00 11/02/16 08:59 Ondansetron HCl (Zofran) 4 mg Q6H PRN IVP Nausea & Vomiting 10/01/16 18:30 10/31/16 18:29 Oxycodone HCl (Roxicodone) 15 mg Q4HR PRN GT Mild Pain (Pain Scale 1-3) 10/02/16 13:30 10/09/16 13:29 UNV Oxycodone HCl (Roxicodone) 30 mg Q4HR PRN GT Severe Pain (Pain Scale 7-10) 10/02/16 13:30 10/09/16 13:29 UNV Piperacillin Sod/ Tazobactam Sod 3.375 gm/Sodium Chloride 110 ml @ 27.5 mls/hr Q8HR IVPB 10/01/16 22:00 10/08/16 21:59 10/02/16 13:01 Polyethylene Glycol (Miralax) 17 gm DAILY GT 10/03/16 09:00 11/02/16 08:59 UNV Polyethylene Glycol (Miralax) 17 gm HSPRN PRN GT Constipation 10/02/16 13:30 11/01/16 13:29 Quetiapine Fumarate (SEROquel) 25 mg Q12HR PRN ORAL agitation 10/02/16 13:30 11/01/16 13:29 UNV Scopolamine (Transderm Scop) 1 mg Q72H TDERMAL 10/02/16 13:30 11/01/16 13:29 UNV Sennosides (Senokot) 17.2 mg QHS PRN GT Constipation 10/02/16 13:30 11/01/16 13:29 Tamsulosin HCl (Flomax) 0.4 mg DAILY GT 10/03/16 09:00 11/02/16 08:59 Timolol Maleate 1 drop 1 drop DAILY BOTH EYES 10/02/16 09:00 11/01/16 08:59 10/02/16 08:52 Vancomycin HCl/ Dextrose (Vancomycin/D5W) 275 ml @ 183.708 mls/hr Q24H IVPB 10/02/16 13:30 10/07/16 13:29 UNV Assessment/Plan Problem List: (1) Aspiration pneumonia ICD Codes: J69.0 - Pneumonitis due to inhalation of food and vomit SNOMED: 410564201 (2) Severe anemia ICD Codes: D64.9 - Anemia, unspecified SNOMED: 682452437 (3) Severe protein-calorie malnutrition ICD Codes: E43 - Unspecified severe protein-calorie malnutrition SNOMED: 859411940 (4) Polypharmacy ICD Codes: Z79.899 - Other usp (current) drug therapy SNOMED: 313291745 (5) Feeding by G-tube ICD Codes: Z93.1 - Gastrostomy status SNOMED: 370496429, 072676849 (6) long term resident ICD Codes: Z59.3 - Problems related to living in residential institution SNOMED: 229858011 Assessment/Plan NPO IV fluids IV antibiotics CT chest anemia w/u symptomatic treatment prbc prn try to simplify meds regimen TORSTEN WILLETT Oct 02, 2016 14:10
[2016-10-02] MEDS ORDERED: Transderm Scop 1.5mg TDERMAL SCH ×2 (15:00→16:00)
[2016-10-02 15:50] VITALS: BP 140/88
[2016-10-02] MEDS: Vancomycin 1.5 GM in D5W 325 ML IVPB SCH (17:44)
[2016-10-02] MEDS: Gabapentin 300 MG/6 ML Soln GT SCH (17:44)
[2016-10-02 20:00] VITALS: BP 150/90
[2016-10-02] MEDS: Atorvastatin 80mg tab GT SCH (20:55)
[2016-10-03] VITALS: BP 153/87
--- NOTE | 2016-10-03 02:00 | Consultation ---
DATE OF CONSULTATION: 10/02/2016 NOTE: "POOR AUDIO QUALITY" HEMATOLOGY/ONCOLOGY CONSULTATION CONSULTING PHYSICIAN: Leonardo Martin M.D. REQUESTING PHYSICIAN: Shreyas Beverly M.D. and Jermaine Anthony M.D. REASON FOR CONSULTATION: Evaluation of throat cancer. IDENTIFYING DATA: Dear Dr. Beverly, The patient is a pleasant 65-year-old male with a past medical history significant for throat cancer, which has locally advanced. I have discussed the case with Dr. Jermaine Anthony. The patient has a history of hepatitis C, hepatitis B, and CVA. 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 Anthony wanted me to evaluate the patient given he is out of town. The patient at this point has had a chest x-ray, which showed right bilateral parahilar interstitial alveolar infiltrates, essentially pneumonia. The right side has mild to moderate pleural effusion in addition to apical pneumothorax. CAT scan of the chest is . PAST MEDICAL HISTORY: History of hepatitis C, colitis, chronic low back pain, pain. PAST SURGICAL HISTORY: None noted. MEDICATIONS: Medications have been reviewed. ALLERGIES: No known drug allergies. SOCIAL HISTORY: No alcohol, tobacco, or illicit drug use. REVIEW OF SYSTEMS: Constitutional: No fever, no chills, or night sweats. He is confused given mental status changes. Skin: No rashes, lumps, or itching. HEENT: No headache, hearing, or vision changes. Breasts: No lumps, pain, or discharge. . Pulmonary: No cough, sputum, or shortness of breath. Cardiovascular: No chest pain, tightness, or palpitations. Gastrointestinal: Slight tenderness to palpation. G-tube is in place. PHYSICAL EXAMINATION: GENERAL: The patient is in no acute distress. VITAL SIGNS: Temperature 97 degrees Fahrenheit, pulse of 72, respiratory rate 12, blood pressure 132/75, and pulse oximetry is 96% on nasal cannula. PULMONARY: Decreased breath sounds. CARDIOVASCULAR: Regular rate. No S3 or S4. ABDOMEN: Soft, nontender, and nondistended. EXTREMITIES: There is 1+ edema. LABORATORY AND DIAGNOSTIC DATA: have been reviewed. WBC 6.8, hemoglobin 8.6, hematocrit 28, and platelet count of 318,000. ASSESSMENT: 1. Locally advanced cancer of the tonsil with no airway distress, has been followed by Dr. Anthony. 2. Anemia secondary to chronic disease. 3. Anemia of malignancy. 4. Hepatitis C. 5. Major depressive disorder. 6. Hypertension. 7. Malnutrition. 8. . 9. Aspiration pneumonia. 10. Endocarditis. RECOMMENDATIONS: 1. Obtain CAT scan of the chest. 2. as needed. 3. . 4. Anemia workup is pending. 5. Antibiotics for endocarditis. 6. I reviewed pulmonary recommendations. 7. I have discussed the case with Dr. Anthony. 8. I have discussed with staff. Leonardo Martin M.D. DR: TATE JOB#: [id number] CC:
[2016-10-03] MEDS: D5NS 1,000 ML IV SCH ×2 (02:38→09:05)
[2016-10-03 04:00] VITALS: BP 140/80
[2016-10-03] MEDS: Vancomycin 1.5 GM in D5W 325 ML IVPB SCH ×2 (04:04→15:53)
[2016-10-03] MEDS: Piperacillin/Tazobactam 3.375 GM in NS 110 ML IVPB SCH ×2 (06:27→13:43)
[2016-10-03 07:45] VITALS: BP 148/74
[2016-10-03 08:03] LABS: BASOPHILS % (AUTO) 0.6 % (0.0-2.0); EOSINOPHILS % (AUTO) 1.5 % (0.0-3.0); LYMPHOCYTES % (AUTO) 5.6 % (20.0-45.0); MEAN CORPUSCULAR HEMOGLOBIN 31.7 PG (27.0-31.0); MEAN CORPUSCULAR HGB CONC 31.9 G/DL (32.0-36.0); MEAN CORPUSCULAR VOLUME 99 FL (80-99); NEUTROPHILS % (AUTO) 84.4 % (45.0-75.0); PLATELET COUNT 278 K/UL (150-450); RED BLOOD COUNT 2.67 M/UL (4.70-6.10); RED CELL DISTRIBUTION WIDTH 18.1 % (11.6-14.8)
[2016-10-03 08:10] LABS: INR 1.4 (0.9-1.1); PROTHROMBIN TIME 14.6 SEC (9.30-11.50)
[2016-10-03] MEDS ORDERED: Miralax 17gm pkt GT SCH (09:00)
[2016-10-03] MEDS ORDERED: Multivitamin w/Minerals tab ORAL SCH (09:00)
[2016-10-03] MEDS ORDERED: Aspirin Baby 81mg GT SCH (09:00)
[2016-10-03] MEDS ORDERED: Tamsulosin 0.4mg cap GT SCH (09:00)
[2016-10-03] MEDS: Timoptic 0.25% Op Soln 2.5ml BOTH EYES SCH (09:01)
[2016-10-03] MEDS: Gabapentin 300 MG/6 ML Soln GT SCH ×3 (09:01→17:41)
[2016-10-03] MEDS: Heparin 5000 units/ml inj SUBQ SCH ×2 (09:02→21:32)
[2016-10-03 09:19] LABS: ERYTHROCYTE SEDIMENTATION RATE 93 MM/HR (0-20)
[2016-10-03 10:04] LABS: ANISOCYTOSIS 1+; BAND NEUTROPHILS % (MANUAL) 0 % (0-8); BASOPHILS % (MANUAL) 0 % (0-2); EOSINOPHILS % (MANUAL) 2 % (0-3); HYPOCHROMASIA 1+; LYMPHOCYTES % (MANUAL) 4 % (20-45); NEUTROPHILS % (MANUAL) 86 % (45-75); PLATELET ESTIMATE ADEQUATE; PLATELET MORPHOLOGY NORMAL; TOTAL CELLS COUNTED 100
[2016-10-03 10:05] LABS: MACROCYTES 1+
[2016-10-03 10:35] LABS: PATH BLOOD SMEAR/OMC SENT TO PATHOLOGIST; RETICULOCYTE COUNT 2.3 % (0.0-2.0)
[2016-10-03] MEDS ORDERED: Atorvastatin 80mg tab GT SCH (11:00)
[2016-10-03] MEDS ORDERED: Atorvastatin 80mg tab ORAL SCH (11:00)
[2016-10-03 11:33] VITALS: BP 147/99
--- NOTE | 2016-10-03 13:39 | Pulmonology Progress Note ---
Assessment/Plan Problems: (1) Aspiration pneumonia (2) Severe anemia (3) Severe protein-calorie malnutrition (4) Polypharmacy (5) Feeding by G-tube (6) prison resident Assessment/Plan CT chest done results pending respiratory treatment IV antibiotics check cultures oncology f/u. Subjective ROS Limited/Unobtainable: No Constitutional: Reports: no symptoms HEENT: Repors: no symptoms Respiratory: Reports: no symptoms Allergies: Coded Allergies: NO KNOWN DRUG ALLERGIES (Verified Allergy, Unknown, 03/06/14) Objective Last 24 Hour Vital Signs Date Time Temp Pulse Resp B/P Pulse Ox O2 Delivery O2 Flow Rate FiO2 10/03/16 11:33 97.5 69 20 147/99 94 Room Air 10/03/16 08:00 74 10/03/16 07:45 97.3 79 20 148/74 96 Room Air 10/03/16 04:00 76 10/03/16 04:00 98.2 100 24 140/80 98 Room Air 10/03/16 00:00 97.7 78 24 153/87 99 Room Air 10/03/16 00:00 81 10/02/16 20:00 75 10/02/16 20:00 97.3 72 24 150/90 Room Air 10/02/16 19:30 70 20 Room Air 21 10/02/16 16:00 79 10/02/16 15:50 97.0 80 20 140/88 95 Nasal Cannula 2.0 Intake and Output 10/02/16 10/03/16 19:00 07:00 Intake Total 587.5 ml 1730 ml Output Total 1700 ml 900 ml Balance -1112.5 ml 830 ml Free Water 50 ml IV Total 567.5 ml 1660 ml Tube Feeding 20 ml 20 ml Output Urine Total 1700 ml 900 ml # Bowel Movements 3 1 Objective somnolent General Appearance: WD/WN HEENT: normocephalic, atraumatic Respiratory/Chest: chest wall non-tender, lungs clear Cardiovascular: normal peripheral pulses, normal rate Abdomen: normal bowel sounds, soft, non tender Skin: no rash, no ulcers Neurologic/Psychiatric: parachute folder II-XII grossly normal Microbiology Date/Time Source Procedure Growth Status 10/01/16 16:00 Nasal Nares MRSA Culture - Final NO METHICILLIN RESISTANT STAPH AUREUS... Complete 10/01/16 16:00 Rectum VRE Culture - Final Enterococcus Faecalis - Vre Complete Laboratory Tests 10/02/16 15:42: Fibrinogen 101*L 10/02/16 17:30: Stool Occult Blood Negative 10/03/16 06:55: White Blood Count 9.0, Red Blood Count 2.67L, Hemoglobin 8.4L, Hematocrit 26.5L , Mean Corpuscular Volume 99, Mean Corpuscular Hemoglobin 31.7H, Mean Corpuscular Hemoglobin Concent 31.9L, Red Cell Distribution Width 18.1H, Platelet Count 278, Mean Platelet Volume 6.0L, Neutrophils (%) (Auto) 84.4H, Lymphocytes (%) (Auto) 5.6L, Monocytes (%) (Auto) 8.0, Eosinophils (%) (Auto) 1.5, Basophils (%) (Auto) 0.6, Differential Total Cells Counted 100, Neutrophils % (Manual) 86H, Lymphocytes % (Manual) 4L, Monocytes % (Manual) 8, Eosinophils % (Manual) 2, Basophils % (Manual) 0, Band Neutrophils 0, Platelet Estimate Adequate, Platelet Morphology Normal, Polychromasia , Hypochromasia 1+ , Anisocytosis 1+, Macrocytosis 1+, Erythrocyte Sedimentation Rate 93H, Reticulocyte Count 2.3H, Prothrombin Time 14.6H, Prothromb Time International Ratio 1.4H, Activated Partial Thromboplast Time 36H, Iron Level 42L, Total Iron Binding Capacity 228L, Percent Iron Saturation 18, Unsaturated Iron Binding 186 , Lactate Dehydrogenase 203, Carcinoembryonic Antigen 165.4H, Vitamin B12 Level 1806H, Folate [Pending] Current Medications Medications (Trade) Dose Ordered Sig/Dmitri Route PRN Reason Start Time Stop Time Status Last Admin Dose Admin Acetaminophen (Tylenol) 650 mg Q4H PRN ORAL Fever/Headache/Mild Pain 10/02/16 14:30 11/01/16 14:29 Albuterol Sulfate (Proventil) 2.5 mg Q4H PRN HHN Shortness of Breath 10/01/16 18:30 10/06/16 18:29 Aspirin (ASA) 81 mg DAILY GT 10/03/16 09:00 11/02/16 08:59 10/03/16 09:01 Atorvastatin Calcium (Lipitor) 80 mg BEDTIME GT 10/02/16 21:00 11/01/16 20:59 10/02/16 20:55 Bisacodyl (Dulcolax) 10 mg HSPRN PRN RECTAL Constipation 10/01/16 18:30 10/31/16 18:29 Dextrose (Dextrose 50%) STAT PRN IV Hypoglycemia 10/01/16 18:30 10/31/16 18:29 Dextrose/Sodium Chloride (D5ns) 1,000 ml @ 75 mls/hr [id number] IV 10/02/16 13:30 11/01/16 13:29 10/03/16 09:05 Escitalopram Oxalate 20 mg 20 mg DAILY GT 10/03/16 09:00 11/02/16 08:59 10/03/16 09:01 Gabapentin (Neurontin) 300 mg TID GT 10/02/16 18:00 11/01/16 17:59 10/03/16 09:01 Heparin Sodium (Porcine) (Heparin 5000 units/ml) 5,000 units EVERY 12 HOURS SUBQ 10/01/16 21:00 10/31/16 20:59 10/03/16 09:02 Morphine Sulfate (Morphine Sulfate) 2 mg Q4H PRN IVP Moderate Pain (Pain Scale 4-6) 10/01/16 18:30 10/08/16 18:29 Multivitamins Therapeutic (Therapeutic Multivitamin) 1 ea DAILY ORAL 10/03/16 09:00 11/02/16 08:59 10/03/16 09:01 Ondansetron HCl (Zofran) 4 mg Q6H PRN IVP Nausea & Vomiting 10/01/16 18:30 10/31/16 18:29 Oxycodone HCl (Roxicodone) 15 mg Q4HR PRN GT Moderate Pain (Pain Scale 4-6) 10/02/16 13:30 10/09/16 13:29 Oxycodone HCl (Roxicodone) 30 mg Q4HR PRN GT Severe Pain (Pain Scale 7-10) 10/02/16 13:30 10/09/16 13:29 Piperacillin Sod/ Tazobactam Sod 3.375 gm/Sodium Chloride 110 ml @ 27.5 mls/hr Q8HR IVPB 10/01/16 22:00 10/08/16 21:59 10/03/16 06:27 Polyethylene Glycol (Miralax) 17 gm DAILY GT 10/03/16 09:00 11/02/16 08:59 Polyethylene Glycol (Miralax) 17 gm HSPRN PRN GT Constipation 10/02/16 13:30 11/01/16 13:29 Quetiapine Fumarate (SEROquel) 25 mg Q12HR PRN ORAL agitation 10/02/16 13:30 11/01/16 13:29 10/03/16 11:24 Scopolamine (Transderm Scop) 1.5 mg Q72H TDERMAL 10/02/16 16:00 11/01/16 15:59 10/02/16 16:01 Sennosides (Senokot) 17.2 mg QHS PRN GT Constipation 10/02/16 13:30 11/01/16 13:29 Tamsulosin HCl (Flomax) 0.4 mg DAILY GT 10/03/16 09:00 11/02/16 08:59 10/03/16 09:01 Timolol Maleate 1 drop 1 drop DAILY BOTH EYES 10/02/16 09:00 11/01/16 08:59 10/03/16 09:01 Vancomycin HCl (Vanco rx to dose) 1 ea DAILY PRN MISC . 10/02/16 14:15 11/01/16 14:14 Vancomycin HCl/ Dextrose (Vancomycin/D5W) 325 ml @ 150 mls/hr Q12HR@0400,1600 IVPB 10/02/16 16:00 10/07/16 15:59 10/03/16 04:04 TORSTEN WILLETT Oct 03, 2016 13:39
--- NOTE | 2016-10-03 14:21 | Diagnostic Imaging Report ---
Clinical Indication: COUGH Technique: Spiral acquisitions obtained through the chest. No IV contrast utilized, per referring physician request. Multiplanar reconstructions generated. Total dose length product 686 mGycm. CTDIvol(s) 16 mGy. Dose reduction achieved using automated exposure control Comparison: Chest radiograph 10/01/2016 Findings:There are moderate-sized bilateral pleural effusions, slightly larger on the right than on the left. There are extensive bilateral pulmonary parenchymal opacities. There is complete consolidation of the entire right middle lobe. Proximal air bronchograms are demonstrated in this, but none distally. Dense confluent opacities are seen throughout the right upper lobe, primarily in the suprahilar region. More scattered reticular and nodular opacities are also seen throughout the right upper lobe 4.6 cm density is seen in the inferomedial anterior right upper lobe. Multiple masslike opacities are seen at the right lung base. A large area of opacity is seen in the left hilar region, boundaries somewhat indistinct given the absence of IV contrast, measuring approximately 6.6 x 6.4 cm. This is in the left upper lobe. This includes a portion of the main left upper lobe bronchus. There is some posterior inferior atelectasis within the left upper lobe. A 6 mm pleural-based opacity is seen in the periphery of the left upper lobe. A large triangular opacity is seen at the periphery of the left lower lobe, measures approximately 5 x 4 cm. Some linear scarring is seen in the left lung apex. The possible pneumothorax described on recent chest radiograph is not evident on this exam. Small filling defects are seen the posterolateral aspect of the trachea, likely representing secretions The heart size is normal. No definite pericardial effusion. There is mediastinal lymphadenopathy. Nodes are difficult to delineate given the absence of IV contrast and considerable soft tissue edema within the mediastinum. However, there is suggestion of a precarinal node measuring 2.7 cm long axis dimension, as well as aortopulmonary window adenopathy measuring up to 2.8 x 1.9 cm. The included thyroid is unremarkable. The tip of what is probably a midline catheter is seen within the right axillary vein. There is generalized edema of the subcutaneous fat as well as, as mentioned earlier, the mediastinal fat. No axillary or chest wall mass or adenopathy demonstrated. The bones are remarkable for degenerative spondylosis changes. The included upper abdominal anatomy is grossly unremarkable. The consumer electronics merchandiser image demonstrates a gastrostomy, which is not evident on the scan imaging volume Impression: Extensive bilateral pulmonary parenchymal disease, as described. Given history of recent positive PET scan with lung activity, a significant motor this could represent tumor. The right upper lobe and left perihilar opacities are in particular masslike. However, suspect also a significant component of infiltrates, particularly in the right middle lobe and left lung periphery. Difficult to distinguish between the two, particularly in view of the absence of IV contrast administration. Moderate bilateral pleural effusions, right greater than left Evidence of mediastinal lymphadenopathy. Suspect neoplastic given stated clinical history Diffuse mild edema of the the spinal and subcutaneous fat filling defects in the trachea, likely mucosal secretions Note that left apical pneumothorax question on recent chest radiograph is not evident on this exam Other findings as noted, including gastrostomy, degenerative spondylosis, right arm midline catheter The CT scanner at [facility] is accredited by the [employer] and the scans are performed using protocols designed to limit radiation exposure to as low as reasonably achievable to attain images of sufficient resolution adequate for diagnostic evaluation.
[2016-10-03 16:01] VITALS: BP 144/77
[2016-10-03 20:00] VITALS: BP 157/95
[2016-10-03] MEDS: Atorvastatin 80mg tab GT SCH (21:26)
--- NOTE | 2016-10-03 22:11 | Internal Med Progress Note ---
Subjective Physician Name Shreyas Harris Attending Physician Shreyas Harris M.D. Current Medications Medications (Trade) Dose Ordered Sig/Dmitri Route PRN Reason Start Time Stop Time Status Last Admin Dose Admin Acetaminophen (Tylenol) 650 mg Q4H PRN ORAL Fever/Headache/Mild Pain 10/02/16 14:30 11/01/16 14:29 Albuterol Sulfate (Proventil) 2.5 mg Q4H PRN HHN Shortness of Breath 10/01/16 18:30 10/06/16 18:29 Aspirin (ASA) 81 mg DAILY GT 10/03/16 09:00 11/02/16 08:59 10/03/16 09:01 Atorvastatin Calcium (Lipitor) 80 mg BEDTIME GT 10/02/16 21:00 11/01/16 20:59 10/03/16 21:26 Bisacodyl (Dulcolax) 10 mg HSPRN PRN RECTAL Constipation 10/01/16 18:30 10/31/16 18:29 Dextrose (Dextrose 50%) STAT PRN IV Hypoglycemia 10/01/16 18:30 10/31/16 18:29 Dextrose/Sodium Chloride (D5ns) 1,000 ml @ 75 mls/hr [id number] IV 10/02/16 13:30 11/01/16 13:29 10/03/16 09:05 Escitalopram Oxalate (Lexapro) 20 mg DAILY GT 10/03/16 09:00 11/02/16 08:59 10/03/16 09:01 Gabapentin (Neurontin) 300 mg TID GT 10/02/16 18:00 11/01/16 17:59 10/03/16 17:41 Heparin Sodium (Porcine) (Heparin 5000 units/ml) 5,000 units EVERY 12 HOURS SUBQ 10/01/16 21:00 10/31/16 20:59 10/03/16 21:32 Morphine Sulfate (Morphine Sulfate) 2 mg Q4H PRN IVP Moderate Pain (Pain Scale 4-6) 10/01/16 18:30 10/08/16 18:29 Multivitamins Therapeutic (Therapeutic Multivitamin) 1 ea DAILY ORAL 10/03/16 09:00 11/02/16 08:59 10/03/16 09:01 Ondansetron HCl (Zofran) 4 mg Q6H PRN IVP Nausea & Vomiting 10/01/16 18:30 10/31/16 18:29 Oxycodone HCl (Roxicodone) 15 mg Q4HR PRN GT Moderate Pain (Pain Scale 4-6) 10/02/16 13:30 10/09/16 13:29 Oxycodone HCl (Roxicodone) 30 mg Q4HR PRN GT Severe Pain (Pain Scale 7-10) 10/02/16 13:30 10/09/16 13:29 Piperacillin Sod/ Tazobactam Sod 3.375 gm/Sodium Chloride 110 ml @ 27.5 mls/hr Q8HR IVPB 10/01/16 22:00 10/08/16 21:59 10/03/16 13:43 Polyethylene Glycol (Miralax) 17 gm DAILY GT 10/03/16 09:00 11/02/16 08:59 Polyethylene Glycol (Miralax) 17 gm HSPRN PRN GT Constipation 10/02/16 13:30 11/01/16 13:29 Quetiapine Fumarate (SEROquel) 25 mg Q12HR PRN ORAL agitation 10/02/16 13:30 11/01/16 13:29 10/03/16 11:24 Scopolamine (Transderm Scop) 1.5 mg Q72H TDERMAL 10/02/16 16:00 11/01/16 15:59 10/02/16 16:01 Sennosides (Senokot) 17.2 mg QHS PRN GT Constipation 10/02/16 13:30 11/01/16 13:29 Tamsulosin HCl (Flomax) 0.4 mg DAILY GT 10/03/16 09:00 11/02/16 08:59 10/03/16 09:01 Timolol Maleate 1 drop 1 drop DAILY BOTH EYES 10/02/16 09:00 11/01/16 08:59 10/03/16 09:01 Vancomycin HCl (Vanco rx to dose) 1 ea DAILY PRN MISC . 10/02/16 14:15 11/01/16 14:14 Allergies: Coded Allergies: NO KNOWN DRUG ALLERGIES (Verified Allergy, Unknown, 03/06/14) Subjective muffled voice alert and awake x person and place reports SOB + coughing started NGT feeds 12 pt ROS limited bc of mental status Objective Last Vital Signs Date Time Temp Pulse Resp B/P Pulse Ox O2 Delivery O2 Flow Rate FiO2 10/03/16 20:00 97.0 85 22 157/95 94 Room Air 10/03/16 19:22 21 10/02/16 15:50 2.0 Laboratory Tests Test 10/03/16 06:55 10/03/16 14:50 White Blood Count 9.0 K/UL (4.8-10.8) Red Blood Count 2.67 M/UL (4.70-6.10) L Hemoglobin 8.4 G/DL (14.2-18.0) L Hematocrit 26.5 % (42.0-52.0) L Mean Corpuscular Volume 99 FL (80-99) Mean Corpuscular Hemoglobin 31.7 PG (27.0-31.0) H Mean Corpuscular Hemoglobin Concent 31.9 G/DL (32.0-36.0) L Red Cell Distribution Width 18.1 % (11.6-14.8) H Platelet Count 278 K/UL (150-450) Mean Platelet Volume 6.0 FL (6.5-10.1) L Neutrophils (%) (Auto) 84.4 % (45.0-75.0) H Lymphocytes (%) (Auto) 5.6 % (20.0-45.0) L Monocytes (%) (Auto) 8.0 % (1.0-10.0) Eosinophils (%) (Auto) 1.5 % (0.0-3.0) Basophils (%) (Auto) 0.6 % (0.0-2.0) Differential Total Cells Counted 100 Neutrophils % (Manual) 86 % (45-75) H Lymphocytes % (Manual) 4 % (20-45) L Monocytes % (Manual) 8 % (1-10) Eosinophils % (Manual) 2 % (0-3) Basophils % (Manual) 0 % (0-2) Band Neutrophils 0 % (0-8) Platelet Estimate Adequate Platelet Morphology Normal Polychromasia Hypochromasia 1+ Anisocytosis 1+ Macrocytosis 1+ Erythrocyte Sedimentation Rate 93 MM/HR (0-20) H Reticulocyte Count 2.3 % (0.0-2.0) H Prothrombin Time 14.6 SEC (9.30-11.50) H Prothromb Time International Ratio 1.4 (0.9-1.1) H Activated Partial Thromboplast Time 36 SEC (23-33) H Iron Level 42 ug/dL (59-158) L Total Iron Binding Capacity 228 ug/dL (250-400) L Percent Iron Saturation 18 % (15-50) Unsaturated Iron Binding 186 ug/dL (112-346) Lactate Dehydrogenase 203 U/L (135-230) Carcinoembryonic Antigen 165.4 ng/mL H Vitamin B12 Level 1806 pg/mL (211-946) H Folate Pending Vancomycin Level Trough 20.5 ug/mL (5.0-12.0) H Microbiology Date/Time Source Procedure Growth Status 10/01/16 16:00 Nasal Nares MRSA Culture - Final NO METHICILLIN RESISTANT STAPH AUREUS... Complete 10/01/16 16:00 Rectum VRE Culture - Final Enterococcus Faecalis - Vre Complete Intake and Output 10/02/16 10/03/16 19:00 07:00 Intake Total 587.5 ml 1730 ml Output Total 1700 ml 900 ml Balance -1112.5 ml 830 ml Free Water 50 ml IV Total 567.5 ml 1660 ml Tube Feeding 20 ml 20 ml Output Urine Total 1700 ml 900 ml # Bowel Movements 3 1 Objective GENERAL: ~In no acute distress. ~The patient has a muffled voice. HEENT: ~~NC/AT ~ NECK: ~~Supple. ~No JVD CARDIOVASCULAR: ~~Regular rate and rhythm. ~Normal S1, S2. ~~ LUNGS: ~Clear to auscultation bilaterally. ~No crackles, rhonchi, or rales. ~ ABDOMEN: ~~Soft, no TTP. + G-tube with bilious material EXTREMITIES: ~~No clubbing, cyanosis, or edema. ~~ SKIN: ~Normal skin color. ~No lesions. PSYCH: ~Appropriate mood and affect. NEURO: Can move all extremities. 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 2. Hepatitis C. 3.History of cerebrovascular accident. 4.Hepatitis B. 5.Major depressive disorder. 6.Hypertension. 7.Chronic lower back pain. 8. ~~Malnutrition s/p PEG placement 9. ~~Failure to thrive 11. ~Aspiration PNA 12. ~~ Possible bilateral lung metastasis 13. ~~Metabolic encephalopathy 2/2 PNA + hypercalcemia 14. ~~Endocarditis 15. ~~Hypercalcemia - ddx: immobilization +/- Malignancy PLAN: 1 Tele 2 Tube feeds - restart nutren @ 30cc/hr with free water 400cc TID 3. ~~IVF - D5NS @ 75cc/hr ; suction orally Q 2 hours; patient is most likely chronically aspirating on secretions. continue scopolamine patch 4. ~~Resume meds from SNF 5. ~~NPO 6. ~~Heme/Onc consult with Dr. Anthony 7. ~~ abx - Zosyn ; Vancomycin for endocarditis (dx at [facility] and needs to complete 6 weeks) 8. ~~reviewed CT chest. has bilateral upper lobe infiltrates with possible metastasis. difficult to access without IV contrast however recent PET scan with hypermetabolic activity in same areas suggestive to pulmonary metastasis. will discuss with Oncology 9. ~~resume home medications 10.~~PT mobility 11. pamidronate IVP x 1 DVT - heparin SHREYAS HARRIS M.D. Oct 03, 2016 22:11
[2016-10-03] MEDS ORDERED: Pamidronate Disodium Inj 60 MG in Sodium Chloride 550 ML IVPB ONE (22:15)
[2016-10-04] VITALS: BP 136/73
[2016-10-04] MEDS: D5NS 1,000 ML IV SCH ×3 (01:34→21:31)
[2016-10-04] MEDS: Piperacillin/Tazobactam 3.375 GM in NS 110 ML IVPB SCH ×4 (01:34→21:31)
[2016-10-04 04:00] VITALS: BP 102/72
--- NOTE | 2016-10-04 06:40 | General Progress Note ---
Assessment/Plan Assessment/Plan ASSESSMENT/RECS: 1. 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 Anthony. Potential metastasis in the upper airway field, agree will need outpatient management with oncology, Dr. Anthony is aware 2. Anemia secondary to chronic disease. ferritin is elevated --> hgb goal >7 3. Anemia of malignancy 4. Hepatitis C. 5. Major depressive disorder. 6. Hypertension. 7. Malnutrition. 8. Hypercalcemia --> agree with pamidronate as well as iv fluids, will recheck cmp 9. Aspiration pneumonia. 10. Endocarditis. Subjective Date patient seen: Oct 03, 2016 Constitutional: Denies: chills, diaphoresis, fever, malaise, no symptoms, other , weakness HEENT: Denies: blurred vision, double vision, ear discharge, ear pain, eye pain , mouth pain, mouth swelling, no symptoms, nose congestion, nose pain, other, tearing, throat pain, throat swelling Cardiovascular: Denies: chest pain, edema, irregular heart rate, lightheadedness, no symptoms, other, palpitations, syncope Respiratory: Denies: SOB at rest, SOB with excertion, cough, no symptoms, orthopnea, other, shortness of breath, sputum, stridor, wheezing Genitourinary: Denies: burning, discharge, flank pain, frequency, hematuria, incontinence, no symptoms, other, pain, urgency Allergies: Coded Allergies: NO KNOWN DRUG ALLERGIES (Verified Allergy, Unknown, 03/06/14) Subjective no events, imaging reviewed Objective Last 24 Hour Vital Signs Date Time Temp Pulse Resp B/P Pulse Ox O2 Delivery O2 Flow Rate FiO2 10/04/16 04:00 98.3 76 20 102/72 100 Room Air 10/04/16 00:21 97.8 10/04/16 00:00 97.8 80 20 136/73 98 Nasal Cannula 4.0 10/03/16 22:58 Nasal Cannula 2.0 10/03/16 22:57 97 Nasal Cannula 2.0 28 10/03/16 20:00 97.0 85 22 157/95 94 Room Air 10/03/16 19:22 66 18 Nasal Cannula 3.0 32 10/03/16 16:01 97.3 69 20 144/77 96 Room Air 10/03/16 12:00 70 10/03/16 11:33 97.5 69 20 147/99 94 Room Air 10/03/16 08:00 74 10/03/16 07:45 97.3 79 20 148/74 96 Room Air Intake and Output 10/03/16 10/04/16 18:59 06:59 Intake Total 1010.0 ml 610 ml Output Total 1800 ml 1900 ml Balance -790.0 ml -1290 ml Free Water 50 ml IV Total 1010.0 ml 410 ml Tube Feeding 150 ml Output Urine Total 1800 ml 1900 ml # Bowel Movements 1 6 Laboratory Tests 10/03/16 06:55: White Blood Count 9.0, Red Blood Count 2.67L, Hemoglobin 8.4L, Hematocrit 26.5L , Mean Corpuscular Volume 99, Mean Corpuscular Hemoglobin 31.7H, Mean Corpuscular Hemoglobin Concent 31.9L, Red Cell Distribution Width 18.1H, Platelet Count 278, Mean Platelet Volume 6.0L, Neutrophils (%) (Auto) 84.4H, Lymphocytes (%) (Auto) 5.6L, Monocytes (%) (Auto) 8.0, Eosinophils (%) (Auto) 1.5, Basophils (%) (Auto) 0.6, Differential Total Cells Counted 100, Neutrophils % (Manual) 86H, Lymphocytes % (Manual) 4L, Monocytes % (Manual) 8, Eosinophils % (Manual) 2, Basophils % (Manual) 0, Band Neutrophils 0, Platelet Estimate Adequate, Platelet Morphology Normal, Polychromasia , Hypochromasia 1+ , Anisocytosis 1+, Macrocytosis 1+, Erythrocyte Sedimentation Rate 93H, Reticulocyte Count 2.3H, Prothrombin Time 14.6H, Prothromb Time International Ratio 1.4H, Activated Partial Thromboplast Time 36H, Iron Level 42L, Total Iron Binding Capacity 228L, Percent Iron Saturation 18, Unsaturated Iron Binding 186 , Lactate Dehydrogenase 203, Carcinoembryonic Antigen 165.4H, Vitamin B12 Level 1806H, Folate [Pending] 10/03/16 14:50: Vancomycin Level Trough 20.5H 10/03/16 23:00: Ionized Calcium (Measured) 1.63*H Height (Feet): 6 Height (Inches): 0.00 Weight (Pounds): 200 General Appearance: no apparent distress EENT: normal ENT inspection Neck: supple Cardiovascular: regular rhythm Respiratory/Chest: normal breath sounds Abdomen: non tender Leonardo Martin Oct 04, 2016 06:40
[2016-10-04 07:56] VITALS: BP 109/60
[2016-10-04] MEDS ORDERED: Pamidronate Disodium Inj 60 MG in Sodium Chloride 550 ML IVPB ONE ×4 (08:00)
[2016-10-04 08:08] LABS: MEAN CORPUSCULAR HEMOGLOBIN 31.3 PG (27.0-31.0); MEAN CORPUSCULAR HGB CONC 31.1 G/DL (32.0-36.0); MEAN CORPUSCULAR VOLUME 101 FL (80-99); MEAN PLATELET VOLUME 5.6 FL (6.5-10.1); PLATELET COUNT 237 K/UL (150-450); RED BLOOD COUNT 2.73 M/UL (4.70-6.10); RED CELL DISTRIBUTION WIDTH 17.5 % (11.6-14.8); WHITE BLOOD COUNT 7.8 K/UL (4.8-10.8)
[2016-10-04] MEDS: Miralax 17gm pkt GT SCH (08:20)
[2016-10-04] MEDS: Tamsulosin 0.4mg cap GT SCH (08:20)
[2016-10-04] MEDS: Heparin 5000 units/ml inj SUBQ SCH ×2 (08:22→21:49)
[2016-10-04 08:35] LABS: ALANINE AMINOTRANSFERASE 55 U/L (3-41); ALBUMIN/GLOBULIN RATIO 0.5 (1.0-2.7); ANION GAP 8 (5-15); ASPARTATE AMINO TRANSFERASE 77 U/L (5-40); CALCIUM 12.7 mg/dL (8.6-10.2); CARBON DIOXIDE 31 mEQ/L (20-30); CHLORIDE 98 mEQ/L (98-107); CREATININE 0.8 mg/dL (0.7-1.2); GLOMERULAR FILTRATION RATE > 60 mL/min (>60); HEMOLYSIS 11; MAGNESIUM 1.5 mg/dL (1.7-2.5); PHOSPHORUS 2.8 mg/dL (2.5-4.8); POTASSIUM 3.3 mEQ/L (3.4-4.9); SODIUM 137 mEQ/L (135-145); TOTAL PROTEIN 7.4 g/dL (6.6-8.7)
[2016-10-04 08:48] LABS: ANISOCYTOSIS 1+; BAND NEUTROPHILS % (MANUAL) 0 % (0-8); BASOPHILS % (MANUAL) 0 % (0-2); EOSINOPHILS % (MANUAL) 1 % (0-3); HYPOCHROMASIA 2+; LYMPHOCYTES % (MANUAL) 3 % (20-45); MACROCYTES 1+; NEUTROPHILS % (MANUAL) 89 % (45-75); NUCLEATED RED BLOOD CELLS 1 /100 WBC; PLATELET ESTIMATE ADEQUATE; PLATELET MORPHOLOGY NORMAL; TOTAL CELLS COUNTED 100
[2016-10-04] MEDS ORDERED: Multivitamin w/Minerals tab ORAL SCH (09:00)
[2016-10-04] MEDS ORDERED: Aspirin Baby 81mg GT SCH (09:00)
[2016-10-04] MEDS ORDERED: oxyCODONE 15mg IR tab GT PRN ×2 (09:00)
[2016-10-04] MEDS: Gabapentin 300 MG/6 ML Soln GT SCH ×3 (09:03→17:12)
[2016-10-04] MEDS: Timoptic 0.25% Op Soln 2.5ml BOTH EYES SCH (09:38)
[2016-10-04 11:02] VITALS: BP 126/71
[2016-10-04] MEDS ORDERED: KCl 10% 40mEq/30ml liquid NG ONE (11:30)
[2016-10-04] MEDS: Albuterol ud Inhalation HHN PRN (11:46)
[2016-10-04] MEDS ORDERED: Miralax 17gm pkt GT PRN (13:30)
--- NOTE | 2016-10-04 14:45 | Internal Med Progress Note ---
Subjective Physician Name Shreyas Harris Attending Physician Shreyas Harris M.D. Current Medications Medications (Trade) Dose Ordered Sig/Dmitri Route PRN Reason Start Time Stop Time Status Last Admin Dose Admin Acetaminophen (Tylenol) 650 mg Q4H PRN ORAL Fever/Headache/Mild Pain 10/04/16 06:30 11/03/16 06:29 Albuterol Sulfate (Proventil) 2.5 mg Q4H PRN HHN Shortness of Breath 10/04/16 06:30 10/09/16 06:29 10/04/16 11:46 Aspirin (ASA) 81 mg DAILY GT 10/04/16 09:00 11/03/16 08:59 10/04/16 08:20 Atorvastatin Calcium (Lipitor) 80 mg BEDTIME GT 10/04/16 21:00 11/03/16 20:59 Bisacodyl (Dulcolax) 10 mg HSPRN PRN RECTAL Constipation 10/04/16 18:30 11/03/16 18:29 Dextrose (Dextrose 50%) STAT PRN IV Hypoglycemia 10/04/16 18:30 11/03/16 18:29 Dextrose/Sodium Chloride 1,000 ml @ 75 mls/hr [id number] IV 10/04/16 06:30 11/03/16 06:29 Escitalopram Oxalate (Lexapro) 20 mg DAILY GT 10/04/16 09:00 11/03/16 08:59 10/04/16 08:20 Gabapentin (Neurontin) 300 mg TID GT 10/04/16 09:00 11/03/16 08:59 10/04/16 13:24 Heparin Sodium (Porcine) (Heparin 5000 units/ml) 5,000 units EVERY 12 HOURS SUBQ 10/04/16 09:00 11/03/16 08:59 10/04/16 08:22 Morphine Sulfate (Morphine Sulfate) 2 mg Q4H PRN IVP Moderate Pain (Pain Scale 4-6) 10/04/16 06:30 10/11/16 06:29 Multivitamins Therapeutic (Therapeutic Multivitamin) 1 ea DAILY ORAL 10/04/16 09:00 11/03/16 08:59 10/04/16 08:20 Ondansetron HCl (Zofran) 4 mg Q6H PRN IVP Nausea & Vomiting 10/04/16 06:30 11/03/16 06:29 Oxycodone HCl (Roxicodone) 15 mg Q4HR PRN GT Moderate Pain (Pain Scale 4-6) 10/04/16 09:00 10/11/16 08:59 Oxycodone HCl (Roxicodone) 30 mg Q4HR PRN GT Severe Pain (Pain Scale 7-10) 10/04/16 09:00 10/11/16 08:59 Piperacillin Sod/ Tazobactam Sod/ Sodium Chloride (Zosyn/Sodium Chloride) 110 ml @ 27.5 mls/hr Q8HR IVPB 10/04/16 14:00 10/11/16 13:59 10/04/16 13:24 Polyethylene Glycol (Miralax) 17 gm DAILY GT 10/04/16 09:00 11/03/16 08:59 10/04/16 08:20 Polyethylene Glycol (Miralax) 17 gm HSPRN PRN GT Constipation 10/04/16 13:30 11/03/16 13:29 Quetiapine Fumarate (SEROquel) 25 mg Q12HR PRN ORAL agitation 10/04/16 09:00 11/03/16 08:59 Scopolamine (Transderm Scop) 1.5 mg Q72H TDERMAL 10/05/16 16:00 11/04/16 15:59 Sennosides (Senokot) 17.2 mg QHS PRN GT Constipation 10/04/16 21:00 11/03/16 20:59 Tamsulosin HCl (Flomax) 0.4 mg DAILY GT 10/04/16 09:00 11/03/16 08:59 10/04/16 08:20 Timolol Maleate (Timoptic 0.25% Op Soln) 1 drop DAILY BOTH EYES 10/04/16 09:00 11/03/16 08:59 10/04/16 09:38 Vancomycin HCl (Vanco rx to dose) 1 ea DAILY PRN MISC . 10/04/16 09:00 11/03/16 08:59 Allergies: Coded Allergies: NO KNOWN DRUG ALLERGIES (Verified Allergy, Unknown, 03/06/14) Subjective muffled voice alert and awake x person and place + coughing on tube feeds 12 pt ROS limited bc of mental status Objective Last Vital Signs Date Time Temp Pulse Resp B/P Pulse Ox O2 Delivery O2 Flow Rate FiO2 10/04/16 12:01 58 20 100 Nasal Cannula 2.0 10/04/16 11:02 98.8 126/71 10/03/16 22:58 28 Laboratory Tests Test 10/03/16 14:50 10/03/16 23:00 10/04/16 05:55 10/04/16 09:00 Vancomycin Level Trough 20.5 ug/mL (5.0-12.0) H Ionized Calcium (Measured) 1.63 mmol/L (1.10-1.35) *H White Blood Count 7.8 K/UL (4.8-10.8) Red Blood Count 2.73 M/UL (4.70-6.10) L Hemoglobin 8.6 G/DL (14.2-18.0) L Hematocrit 27.6 % (42.0-52.0) L Mean Corpuscular Volume 101 FL (80-99) H Mean Corpuscular Hemoglobin 31.3 PG (27.0-31.0) H Mean Corpuscular Hemoglobin Concent 31.1 G/DL (32.0-36.0) L Red Cell Distribution Width 17.5 % (11.6-14.8) H Platelet Count 237 K/UL (150-450) Mean Platelet Volume 5.6 FL (6.5-10.1) L Neutrophils (%) (Auto) % (45.0-75.0) Lymphocytes (%) (Auto) % (20.0-45.0) Monocytes (%) (Auto) % (1.0-10.0) Eosinophils (%) (Auto) % (0.0-3.0) Basophils (%) (Auto) % (0.0-2.0) Differential Total Cells Counted 100 Neutrophils % (Manual) 89 % (45-75) H Lymphocytes % (Manual) 3 % (20-45) L Monocytes % (Manual) 7 % (1-10) Eosinophils % (Manual) 1 % (0-3) Basophils % (Manual) 0 % (0-2) Band Neutrophils 0 % (0-8) Nucleated Red Blood Cells 1 /100 WBC Platelet Estimate Adequate Platelet Morphology Normal Hypochromasia 2+ Anisocytosis 1+ Macrocytosis 1+ Sodium Level 137 mEQ/L (135-145) Potassium Level 3.3 mEQ/L (3.4-4.9) L Chloride Level 98 mEQ/L (98-107) Carbon Dioxide Level 31 mEQ/L (20-30) H Anion Gap 8 (5-15) Blood Urea Nitrogen 15 mg/dL (7-23) Creatinine 0.8 mg/dL (0.7-1.2) Estimat Glomerular Filtration Rate > 60 mL/min (>60) Glucose Level 112 mg/dL (74-106) H Calcium Level 12.7 mg/dL (8.6-10.2) H Calcium (Send out) Pending Phosphorus Level 2.8 mg/dL (2.5-4.8) Magnesium Level 1.5 mg/dL (1.7-2.5) L Total Bilirubin 0.7 mg/dL (0.0-1.2) Aspartate Amino Transf (AST/SGOT) 77 U/L (5-40) H Alanine Aminotransferase (ALT/SGPT) 55 U/L (3-41) H Alkaline Phosphatase 61 U/L (40-129) Total Protein 7.4 g/dL (6.6-8.7) Albumin 2.7 g/dL (3.5-5.2) L Globulin 4.7 g/dL Albumin/Globulin Ratio 0.5 (1.0-2.7) L Vitamin D 25-Hydroxy Pending 25-Hydroxy Vitamin D2 Pending 25-Hydroxy Vitamin D3 Pending Parathyroid Hormone (Intact) Pending Parathyroid Hormone Related Protein Pending Fibrinogen 217 mg/dL (200-400) Microbiology Date/Time Source Procedure Growth Status 10/01/16 16:00 Nasal Nares MRSA Culture - Final NO METHICILLIN RESISTANT STAPH AUREUS... Complete 10/01/16 16:00 Rectum VRE Culture - Final Enterococcus Faecalis - Vre Complete Intake and Output 10/03/16 10/04/16 19:00 07:00 Intake Total 1085.0 ml 775 ml Output Total 1800 ml 1900 ml Balance -715.0 ml -1125 ml Free Water 50 ml IV Total 1085.0 ml 485 ml Tube Feeding 240 ml Output Urine Total 1800 ml 1900 ml # Bowel Movements 1 6 Objective GENERAL: ~In no acute distress. ~The patient has a muffled voice. HEENT: ~~NC/AT ~ NECK: ~~Supple. ~No JVD CARDIOVASCULAR: ~~Regular rate and rhythm. ~Normal S1, S2. ~~ LUNGS: ~Clear to auscultation bilaterally. ~No crackles, rhonchi, or rales. ~ ABDOMEN: ~~Soft, no TTP. + G-tube with bilious material EXTREMITIES: ~~No clubbing, cyanosis, or edema. ~~ SKIN: ~Normal skin color. ~No lesions. PSYCH: ~Appropriate mood and affect. NEURO: Can move all extremities. 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 2. Hepatitis C. 3.History of cerebrovascular accident. 4.Hepatitis B. 5.Major depressive disorder. 6.Hypertension. 7.Chronic lower back pain. 8. ~~Malnutrition s/p PEG placement 9. ~~Failure to thrive 11. ~Aspiration PNA 12. ~~ Possible bilateral lung metastasis 13. ~~Metabolic encephalopathy 2/2 PNA + hypercalcemia 14. ~~Endocarditis 15. ~~Hypercalcemia - ddx: immobilization +/- Malignancy PLAN: 1 Tele 2 Tube feeds - restart nutren @ 30cc/hr with free water 400cc TID 3. ~~IVF - D5NS @ 75cc/hr ; suction orally Q 2 hours; patient is most likely chronically aspirating on secretions. continue scopolamine patch 4. ~~Resume meds from SNF 5. ~~NPO 6. ~~Heme/Onc consult with Dr. Anthony 7. ~~ abx - Zosyn ; Vancomycin for endocarditis (dx at [facility] and needs to complete 6 weeks) 8. ~~reviewed CT chest. has bilateral upper lobe infiltrates with possible metastasis. difficult to access without IV contrast however recent PET scan with hypermetabolic activity in same areas suggestive to pulmonary metastasis. will discuss with Oncology 9. ~~resume home medications 10.~~PT mobility 11. pamidronate IVP x 1 12. correct electrolytes DVT - heparin SHREYAS HARRIS M.D. Oct 04, 2016 14:45
[2016-10-04] MEDS: Vancomycin 1250mg/D5W 275ml IVPB SCH ×2 (15:24)
[2016-10-04 15:44] VITALS: BP 124/73
[2016-10-04] MEDS: Dyna-Hex 2% Top Sol 8oz TOPIC SCH (17:11)
--- NOTE | 2016-10-04 19:38 | Pulmonology Progress Note ---
Assessment/Plan Problems: (1) Aspiration pneumonia (2) Metabolic encephalopathy (3) Severe anemia (4) Severe protein-calorie malnutrition (5) Polypharmacy (6) Feeding by G-tube (7) [facility] resident Assessment/Plan CT chest reviewed, most likely metastatic disease respiratory treatment IV antibiotics check cultures neuro evaluationh change all mind altering meds Haldol for agitation pt has metastatic disease with episodes of agitation. I think he could benefit from palliative sedation Subjective Interval Events: episodes of agitation and sedation Allergies: Coded Allergies: NO KNOWN DRUG ALLERGIES (Verified Allergy, Unknown, 03/06/14) Objective Last 24 Hour Vital Signs Date Time Temp Pulse Resp B/P Pulse Ox O2 Delivery O2 Flow Rate FiO2 10/04/16 15:44 98.2 60 22 124/73 100 Nasal Cannula 2.0 10/04/16 12:01 58 20 100 Nasal Cannula 2.0 10/04/16 11:52 100 Nasal Cannula 2.0 10/04/16 11:51 57 20 100 Nasal Cannula 2.0 10/04/16 11:02 98.8 64 22 126/71 99 Nasal Cannula 2.0 10/04/16 08:09 99 Nasal Cannula 2.0 10/04/16 08:09 57 Nasal Cannula 2.0 10/04/16 08:07 Nasal Cannula 2.0 10/04/16 07:56 98.4 64 20 109/60 100 Nasal Cannula 2.0 10/04/16 04:00 98.3 76 20 102/72 100 Room Air 10/04/16 00:21 97.8 10/04/16 00:00 97.8 80 20 136/73 98 Nasal Cannula 4.0 10/03/16 22:58 Nasal Cannula 2.0 28 10/03/16 22:57 97 Nasal Cannula 2.0 10/03/16 20:00 97.0 85 22 157/95 94 Room Air Intake and Output 10/03/16 10/04/16 19:00 07:00 Intake Total 1085.0 ml 775 ml Output Total 1800 ml 1900 ml Balance -715.0 ml -1125 ml Free Water 50 ml IV Total 1085.0 ml 485 ml Tube Feeding 240 ml Output Urine Total 1800 ml 1900 ml # Bowel Movements 1 6 Objective somnolent General Appearance: cachetic HEENT: normocephalic, atraumatic Respiratory/Chest: chest wall non-tender, lungs clear Cardiovascular: normal peripheral pulses, normal rate Abdomen: normal bowel sounds, soft, non tender Genitourinary: normal external genitalia Extremities: no cyanosis Laboratory Tests 10/03/16 23:00: Ionized Calcium (Measured) 1.63*H 10/04/16 05:55: White Blood Count 7.8, Red Blood Count 2.73L, Hemoglobin 8.6L, Hematocrit 27.6L , Mean Corpuscular Volume 101H, Mean Corpuscular Hemoglobin 31.3H, Mean Corpuscular Hemoglobin Concent 31.1L, Red Cell Distribution Width 17.5H, Platelet Count 237, Mean Platelet Volume 5.6L, Neutrophils (%) (Auto) , Lymphocytes (%) (Auto) , Monocytes (%) (Auto) , Eosinophils (%) (Auto) , Basophils (%) (Auto) , Differential Total Cells Counted 100, Neutrophils % ( Manual) 89H, Lymphocytes % (Manual) 3L, Monocytes % (Manual) 7, Eosinophils % ( Manual) 1, Basophils % (Manual) 0, Band Neutrophils 0, Nucleated Red Blood Cells 1, Platelet Estimate Adequate, Platelet Morphology Normal, Hypochromasia 2 +, Anisocytosis 1+, Macrocytosis 1+, Sodium Level 137, Potassium Level 3.3L, Chloride Level 98, Carbon Dioxide Level 31H, Anion Gap 8, Blood Urea Nitrogen 15 , Creatinine 0.8, Estimat Glomerular Filtration Rate > 60, Glucose Level 112H, Calcium Level 12.7H, Calcium (Send out) [Pending], Phosphorus Level 2.8, Magnesium Level 1.5L, Total Bilirubin 0.7, Aspartate Amino Transf (AST/SGOT) 77H , Alanine Aminotransferase (ALT/SGPT) 55H, Alkaline Phosphatase 61, Total Protein 7.4, Albumin 2.7L, Globulin 4.7, Albumin/Globulin Ratio 0.5L, Vitamin D 25-Hydroxy [Pending], 25-Hydroxy Vitamin D2 [Pending], 25-Hydroxy Vitamin D3 [ Pending], Parathyroid Hormone (Intact) [Pending], Parathyroid Hormone Related Protein [Pending] 10/04/16 09:00: Fibrinogen 217 Current Medications Medications (Trade) Dose Ordered Sig/Dmitri Route PRN Reason Start Time Stop Time Status Last Admin Dose Admin Acetaminophen (Tylenol) 650 mg Q4H PRN ORAL Fever/Headache/Mild Pain 10/04/16 06:30 11/03/16 06:29 Albuterol Sulfate (Proventil) 2.5 mg Q4H PRN HHN Shortness of Breath 10/04/16 06:30 10/09/16 06:29 10/04/16 11:46 Aspirin (ASA) 81 mg DAILY GT 10/04/16 09:00 11/03/16 08:59 10/04/16 08:20 Atorvastatin Calcium (Lipitor) 80 mg BEDTIME GT 10/04/16 21:00 11/03/16 20:59 Bisacodyl (Dulcolax) 10 mg HSPRN PRN RECTAL Constipation 10/04/16 18:30 11/03/16 18:29 Chlorhexidine Gluconate 1 applic 1 applic Q24H TOPIC 10/04/16 17:00 11/03/16 16:59 10/04/16 17:11 Dextrose (Dextrose 50%) STAT PRN IV Hypoglycemia 10/04/16 18:30 11/03/16 18:29 Dextrose/Sodium Chloride 1,000 ml @ 75 mls/hr [id number] IV 10/04/16 06:30 11/03/16 06:29 Escitalopram Oxalate (Lexapro) 20 mg DAILY GT 10/04/16 09:00 11/03/16 08:59 10/04/16 08:20 Gabapentin (Neurontin) 300 mg TID GT 10/04/16 09:00 11/03/16 08:59 10/04/16 17:12 Heparin Sodium (Porcine) (Heparin 5000 units/ml) 5,000 units EVERY 12 HOURS SUBQ 10/04/16 09:00 11/03/16 08:59 10/04/16 08:22 Morphine Sulfate (Morphine Sulfate) 2 mg Q4H PRN IVP Moderate Pain (Pain Scale 4-6) 10/04/16 06:30 10/11/16 06:29 Multivitamins Therapeutic (Therapeutic Multivitamin) 1 ea DAILY ORAL 10/04/16 09:00 11/03/16 08:59 10/04/16 08:20 Ondansetron HCl (Zofran) 4 mg Q6H PRN IVP Nausea & Vomiting 10/04/16 06:30 11/03/16 06:29 Oxycodone HCl (Roxicodone) 15 mg Q4HR PRN GT Moderate Pain (Pain Scale 4-6) 10/04/16 09:00 10/11/16 08:59 Oxycodone HCl (Roxicodone) 30 mg Q4HR PRN GT Severe Pain (Pain Scale 7-10) 10/04/16 09:00 10/11/16 08:59 Piperacillin Sod/ Tazobactam Sod/ Sodium Chloride (Zosyn/Sodium Chloride) 110 ml @ 27.5 mls/hr Q8HR IVPB 10/04/16 14:00 10/11/16 13:59 10/04/16 13:24 Polyethylene Glycol (Miralax) 17 gm DAILY GT 10/04/16 09:00 11/03/16 08:59 10/04/16 08:20 Polyethylene Glycol (Miralax) 17 gm HSPRN PRN GT Constipation 10/04/16 13:30 11/03/16 13:29 Quetiapine Fumarate (SEROquel) 25 mg Q12HR PRN ORAL agitation 10/04/16 09:00 11/03/16 08:59 Scopolamine (Transderm Scop) 1.5 mg Q72H TDERMAL 10/05/16 16:00 11/04/16 15:59 Sennosides (Senokot) 17.2 mg QHS PRN GT Constipation 10/04/16 21:00 11/03/16 20:59 Tamsulosin HCl (Flomax) 0.4 mg DAILY GT 10/04/16 09:00 11/03/16 08:59 10/04/16 08:20 Timolol Maleate (Timoptic 0.25% Op Soln) 1 drop DAILY BOTH EYES 10/04/16 09:00 11/03/16 08:59 10/04/16 09:38 Vancomycin HCl (Vanco rx to dose) 1 ea DAILY PRN MISC . 10/04/16 09:00 11/03/16 08:59 Vancomycin HCl/ Dextrose (Vancomycin/D5W) 275 ml @ 183.333 mls/hr Q12HR@0400,1600 IVPB 10/04/16 16:00 10/09/16 15:59 10/04/16 15:24 TORSTEN WILLETT Oct 04, 2016 19:38
[2016-10-04] MEDS ORDERED: Haloperidol 5mg/ml Inj IM PRN (19:45)
[2016-10-04 20:00] VITALS: BP 127/74
--- NOTE | 2016-10-04 20:37 | General Progress Note ---
Assessment/Plan Assessment/Plan ASSESSMENT/RECS: 1. 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 Anthony. Potential metastasis in the upper airway field, agree will need outpatient management with oncology, Dr. Anthony is aware 2. Anemia secondary to chronic disease. ferritin is elevated --> hgb goal >7 3. Anemia of malignancy 4. Hepatitis C. 5. Major depressive disorder. 6. Hypertension. 7. Malnutrition. 8. Hypercalcemia --> agree with pamidronate as well as iv fluids, will recheck cmp 9. Aspiration pneumonia. 10. Endocarditis. Subjective Constitutional: Reports: no symptoms HEENT: Reports: no symptoms Cardiovascular: Reports: no symptoms Respiratory: Reports: no symptoms Gastrointestinal/Abdominal: Reports: no symptoms Genitourinary: Reports: no symptoms Neurologic/Psychiatric: Reports: no symptoms Endocrine: Reports: no symptoms Allergies: Coded Allergies: NO KNOWN DRUG ALLERGIES (Verified Allergy, Unknown, 03/06/14) Subjective no events, no fevers or chills Objective Last 24 Hour Vital Signs Date Time Temp Pulse Resp B/P Pulse Ox O2 Delivery O2 Flow Rate FiO2 10/04/16 20:32 Nasal Cannula 3.0 32 10/04/16 20:31 68 22 Nasal Cannula 3.0 32 10/04/16 20:31 98 Nasal Cannula 3.0 32 10/04/16 15:44 98.2 60 22 124/73 100 Nasal Cannula 2.0 10/04/16 12:01 58 20 100 Nasal Cannula 2.0 10/04/16 11:52 100 Nasal Cannula 2.0 10/04/16 11:51 57 20 100 Nasal Cannula 2.0 10/04/16 11:02 98.8 64 22 126/71 99 Nasal Cannula 2.0 10/04/16 08:09 99 Nasal Cannula 2.0 10/04/16 08:09 57 Nasal Cannula 2.0 10/04/16 08:07 Nasal Cannula 2.0 10/04/16 07:56 98.4 64 20 109/60 100 Nasal Cannula 2.0 10/04/16 04:00 98.3 76 20 102/72 100 Room Air 10/04/16 00:21 97.8 10/04/16 00:00 97.8 80 20 136/73 98 Nasal Cannula 4.0 10/03/16 22:58 Nasal Cannula 2.0 28 10/03/16 22:57 97 Nasal Cannula 2.0 28 Intake and Output 10/03/16 10/04/16 19:00 07:00 Intake Total 1085.0 ml 775 ml Output Total 1800 ml 1900 ml Balance -715.0 ml -1125 ml Free Water 50 ml IV Total 1085.0 ml 485 ml Tube Feeding 240 ml Output Urine Total 1800 ml 1900 ml # Bowel Movements 1 6 Laboratory Tests 10/03/16 23:00: Ionized Calcium (Measured) 1.63*H 10/04/16 05:55: White Blood Count 7.8, Red Blood Count 2.73L, Hemoglobin 8.6L, Hematocrit 27.6L , Mean Corpuscular Volume 101H, Mean Corpuscular Hemoglobin 31.3H, Mean Corpuscular Hemoglobin Concent 31.1L, Red Cell Distribution Width 17.5H, Platelet Count 237, Mean Platelet Volume 5.6L, Neutrophils (%) (Auto) , Lymphocytes (%) (Auto) , Monocytes (%) (Auto) , Eosinophils (%) (Auto) , Basophils (%) (Auto) , Differential Total Cells Counted 100, Neutrophils % ( Manual) 89H, Lymphocytes % (Manual) 3L, Monocytes % (Manual) 7, Eosinophils % ( Manual) 1, Basophils % (Manual) 0, Band Neutrophils 0, Nucleated Red Blood Cells 1, Platelet Estimate Adequate, Platelet Morphology Normal, Hypochromasia 2 +, Anisocytosis 1+, Macrocytosis 1+, Sodium Level 137, Potassium Level 3.3L, Chloride Level 98, Carbon Dioxide Level 31H, Anion Gap 8, Blood Urea Nitrogen 15 , Creatinine 0.8, Estimat Glomerular Filtration Rate > 60, Glucose Level 112H, Calcium Level 12.7H, Calcium (Send out) [Pending], Phosphorus Level 2.8, Magnesium Level 1.5L, Total Bilirubin 0.7, Aspartate Amino Transf (AST/SGOT) 77H , Alanine Aminotransferase (ALT/SGPT) 55H, Alkaline Phosphatase 61, Total Protein 7.4, Albumin 2.7L, Globulin 4.7, Albumin/Globulin Ratio 0.5L, Vitamin D 25-Hydroxy [Pending], 25-Hydroxy Vitamin D2 [Pending], 25-Hydroxy Vitamin D3 [ Pending], Parathyroid Hormone (Intact) [Pending], Parathyroid Hormone Related Protein [Pending] 10/04/16 09:00: Fibrinogen 217 Height (Feet): 6 Height (Inches): 0.00 Weight (Pounds): 200 General Appearance: no apparent distress EENT: normal ENT inspection Neck: normal alignment Cardiovascular: normal rate Respiratory/Chest: lungs clear Abdomen: non tender Extremities: non-tender Skin: warm/dry Leonardo Martin Oct 04, 2016 20:37
[2016-10-04] MEDS ORDERED: Atorvastatin 80mg tab GT SCH (21:00)
[2016-10-04] MEDS: Fluconazole 100mg tab GT SCH (21:30)
[2016-10-04] MEDS: Morphine Sulfate 2mg/ml Inj IVP PRN (23:24)
[2016-10-05] VITALS: BP 123/52
[2016-10-05] MEDS: Vancomycin 1250mg/D5W 275ml IVPB SCH ×6 (03:45→16:13)
[2016-10-05 04:00] VITALS: BP 132/53
[2016-10-05] MEDS: Albuterol ud Inhalation HHN PRN (05:44)
[2016-10-05] MEDS: Piperacillin/Tazobactam 3.375 GM in NS 110 ML IVPB SCH ×3 (06:08→20:56)
[2016-10-05 07:33] VITALS: BP 141/83
[2016-10-05] MEDS: Tamsulosin 0.4mg cap GT SCH (07:58)
[2016-10-05] MEDS: Timoptic 0.25% Op Soln 2.5ml BOTH EYES SCH (07:58)
[2016-10-05] MEDS: Heparin 5000 units/ml inj SUBQ SCH ×2 (07:59→20:58)
[2016-10-05] MEDS: Miralax 17gm pkt GT SCH (07:59)
[2016-10-05] MEDS: D5NS 1,000 ML IV SCH (09:20)
[2016-10-05 12:00] VITALS: BP 145/78
--- NOTE | 2016-10-05 13:21 | General Progress Note ---
Assessment/Plan Assessment/Plan ASSESSMENT/RECS: 1. 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 Anthony. Potential metastasis in the upper airway field, agree will need outpatient management with oncology, Dr. Anthony is aware 2. Anemia secondary to chronic disease. ferritin is elevated --> hgb goal >7 --> hgb currently stable btwn 8-9 3. Anemia of malignancy 4. Hepatitis C. 5. Major depressive disorder. 6. Hypertension. 7. Malnutrition. 8. Hypercalcemia --> agree with pamidronate as well as iv fluids, will recheck cmp 9. Aspiration pneumonia. 10. Endocarditis. Subjective Constitutional: Reports: no symptoms HEENT: Reports: no symptoms Cardiovascular: Reports: no symptoms Respiratory: Reports: no symptoms Gastrointestinal/Abdominal: Reports: no symptoms Genitourinary: Reports: no symptoms Neurologic/Psychiatric: Reports: no symptoms Endocrine: Reports: no symptoms Allergies: Coded Allergies: NO KNOWN DRUG ALLERGIES (Verified Allergy, Unknown, 03/06/14) Subjective congested, no fevers or chills Objective Last 24 Hour Vital Signs Date Time Temp Pulse Resp B/P Pulse Ox O2 Delivery O2 Flow Rate FiO2 10/05/16 12:00 97.9 78 20 145/78 96 Nasal Cannula 2.0 10/05/16 07:49 Nasal Cannula 3.0 10/05/16 07:48 95 Nasal Cannula 3.0 10/05/16 07:47 70 20 Nasal Cannula 3.0 10/05/16 07:33 97.7 72 22 141/83 95 Nasal Cannula 2.0 10/05/16 05:51 72 20 99 Nasal Cannula 2.0 28 10/05/16 05:42 69 18 95 Nasal Cannula 2.0 28 10/05/16 04:00 96.0 73 21 132/53 Nasal Cannula 2.0 10/05/16 00:00 96.4 68 18 123/52 98 Nasal Cannula 2.0 10/04/16 23:54 97.4 10/04/16 20:32 Nasal Cannula 3.0 32 10/04/16 20:31 68 22 Nasal Cannula 3.0 32 10/04/16 20:31 98 Nasal Cannula 3.0 32 10/04/16 20:00 97.4 59 20 127/74 Nasal Cannula 10/04/16 15:44 98.2 60 22 124/73 100 Nasal Cannula 2.0 Intake and Output 10/04/16 10/05/16 19:00 07:00 Intake Total 1076.666 ml 532.5 ml Output Total 1050 ml 1800 ml Balance 26.666 ml -1267.5 ml Free Water 200 ml 400 ml IV Total 576.666 ml 102.5 ml Tube Feeding 300 ml 30 ml Output Urine Total 1050 ml 1800 ml # Bowel Movements 1 Laboratory Tests 10/05/16 05:30: Stool Occult Blood Negative Height (Feet): 6 Height (Inches): 0.00 Weight (Pounds): 200 General Appearance: WD/WN Neck: non-tender Cardiovascular: normal peripheral pulses Respiratory/Chest: chest wall non-tender Abdomen: normal bowel sounds Extremities: non-tender Edema: no edema noted Pedal (L), no edema noted Pedal (R) Neurologic: oriented x 3 Skin: warm/dry Leonardo Martin Oct 05, 2016 13:21
[2016-10-05 14:15] LABS: PTH INTACT 13 pg/mL (15-65)
[2016-10-05 15:58] VITALS: BP 128/77
[2016-10-05] MEDS ORDERED: Transderm Scop 1.5mg TDERMAL SCH (16:00)
[2016-10-05] MEDS: Dyna-Hex 2% Top Sol 8oz TOPIC SCH (16:06)
[2016-10-05] MEDS ORDERED: DuoNeb 0.5-3(2.5)mg/3ml neb HHN PRN (16:45)
--- NOTE | 2016-10-05 16:45 | Pulmonology Progress Note ---
Assessment/Plan Assessment/Plan ASSESSMENT aspiration PNA SCC throat possible bilateral lung metastasis acute toxic metabolic encephalopathy 2 to PNA and hypercalcemia hypercalcemia of malignancy likely chronic aspiration endocarditis moderate bilateral pleural effusion severe anemia HTN dysphagia, G tube severe protein calorie malnutrition hx of CVA hep B major depressive disorder dysphagia PLAN OF CARE MS floor NPO IVF O2 HHN prn suction q 2 hr , likely chronic aspiration continue Scopolamine patch abx, fup with cx CT chest with Extensive bilateral pulmonary parenchymal disease Given history of recent positive PET scan with lung activity, a significant motor this could represent tumor. The right upper lobe and left perihilar opacities are in particular masslike. However, suspect also a significant component of infiltrates, particularly in the right middle lobe and left lung periphery abx for endocarditis ( dx at [facility]), needs total 6 wks of abx lytes replacement s/p Aredia , fup with lytes onco eval pending swallow eval unable to do be done due to decreased alertness recommended TF and VSS when stable strict aspiration and reflux precautions, monitor tolerance continue ASA, statin pain management bowel regimen DVT prophylaxis PT eval and Rx - to mobilize continue Lexapro case discussed and evaluated by supervising physician Subjective Allergies: Coded Allergies: NO KNOWN DRUG ALLERGIES (Verified Allergy, Unknown, 03/06/14) Subjective afebrile, no leukocytosis, weak worked with PT Objective Last 24 Hour Vital Signs Date Time Temp Pulse Resp B/P Pulse Ox O2 Delivery O2 Flow Rate FiO2 10/05/16 15:58 98.4 72 20 128/77 99 Nasal Cannula 2.0 10/05/16 12:00 97.9 78 20 145/78 96 Nasal Cannula 2.0 10/05/16 07:49 Nasal Cannula 3.0 10/05/16 07:48 95 Nasal Cannula 3.0 10/05/16 07:47 70 20 Nasal Cannula 3.0 10/05/16 07:33 97.7 72 22 141/83 95 Nasal Cannula 2.0 10/05/16 05:51 72 20 99 Nasal Cannula 2.0 28 10/05/16 05:42 69 18 95 Nasal Cannula 2.0 28 10/05/16 04:00 96.0 73 21 132/53 Nasal Cannula 2.0 10/05/16 00:00 96.4 68 18 123/52 98 Nasal Cannula 2.0 10/04/16 23:54 97.4 10/04/16 20:32 Nasal Cannula 3.0 32 10/04/16 20:31 68 22 Nasal Cannula 3.0 32 10/04/16 20:31 98 Nasal Cannula 3.0 32 10/04/16 20:00 97.4 59 20 127/74 Nasal Cannula Intake and Output 10/04/16 10/05/16 19:00 07:00 Intake Total 1076.666 ml 532.5 ml Output Total 1050 ml 1800 ml Balance 26.666 ml -1267.5 ml Free Water 200 ml 400 ml IV Total 576.666 ml 102.5 ml Tube Feeding 300 ml 30 ml Output Urine Total 1050 ml 1800 ml # Bowel Movements 1 Objective GENERAL: no acute distress.. The patient has a muffled voice. HEENT:: NC/AT NECK: Supple. No JVD CARDIOVASCULAR: Regular rate and rhythm. Normal S1, S2. LUNGS: Clear to auscultation bilaterally ABDOMEN: Soft, + G-tube, + BS EXTREMITIES: No clubbing, cyanosis, or edema. SKIN: ~Normal skin color. No lesions. PSYCH: ~Appropriate mood and affect. NEURO: Can move all extremities. awake Microbiology Date/Time Source Procedure Growth Status 10/05/16 05:30 Stool Clostridium difficile Toxin Assay - Final Complete Laboratory Tests 10/05/16 05:30: Stool Occult Blood Negative Current Medications Medications (Trade) Dose Ordered Sig/Dmitri Route PRN Reason Start Time Stop Time Status Last Admin Dose Admin Acetaminophen (Tylenol) 650 mg Q4H PRN ORAL Fever/Headache/Mild Pain 10/04/16 06:30 11/03/16 06:29 Albuterol Sulfate (Proventil) 2.5 mg Q4H PRN HHN Shortness of Breath 10/04/16 06:30 10/09/16 06:29 10/05/16 05:44 Chlorhexidine Gluconate 1 applic 1 applic Q24H TOPIC 10/04/16 17:00 11/03/16 16:59 10/05/16 16:06 Dextrose (Dextrose 50%) STAT PRN IV Hypoglycemia 10/04/16 18:30 11/03/16 18:29 Dextrose/Sodium Chloride 1,000 ml @ 75 mls/hr [id number] IV 10/04/16 06:30 11/03/16 06:29 10/05/16 09:20 Fluconazole (Diflucan) 100 mg Q24H GT 10/04/16 21:00 10/10/16 21:01 10/04/16 21:30 Haloperidol Lactate (Haldol) 5 mg Q6H PRN IM Agitation 10/04/16 19:45 11/03/16 19:44 10/05/16 14:22 Heparin Sodium (Porcine) (Heparin 5000 units/ml) 5,000 units EVERY 12 HOURS SUBQ 10/04/16 09:00 11/03/16 08:59 10/05/16 07:59 Morphine Sulfate (Morphine Sulfate) 2 mg Q4H PRN IVP Moderate Pain (Pain Scale 4-6) 10/04/16 06:30 10/11/16 06:29 10/04/16 23:24 Ondansetron HCl (Zofran) 4 mg Q6H PRN IVP Nausea & Vomiting 10/04/16 06:30 11/03/16 06:29 Oxycodone HCl (Roxicodone) 30 mg Q4HR PRN GT Severe Pain (Pain Scale 7-10) 10/04/16 09:00 10/11/16 08:59 Piperacillin Sod/ Tazobactam Sod/ Sodium Chloride (Zosyn/Sodium Chloride) 110 ml @ 27.5 mls/hr Q8HR IVPB 10/04/16 14:00 10/11/16 13:59 10/05/16 13:04 Polyethylene Glycol (Miralax) 17 gm DAILY GT 10/04/16 09:00 11/03/16 08:59 10/05/16 07:59 Polyethylene Glycol (Miralax) 17 gm HSPRN PRN GT Constipation 10/04/16 13:30 11/03/16 13:29 Tamsulosin HCl (Flomax) 0.4 mg DAILY GT 10/04/16 09:00 11/03/16 08:59 10/05/16 07:58 Timolol Maleate (Timoptic 0.25% Op Soln) 1 drop DAILY BOTH EYES 10/04/16 09:00 11/03/16 08:59 10/05/16 07:58 Vancomycin HCl (Vanco rx to dose) 1 ea DAILY PRN MISC . 10/04/16 09:00 11/03/16 08:59 Vancomycin HCl/ Dextrose (Vancomycin/D5W) 275 ml @ 183.333 mls/hr Q12HR@0400,1600 IVPB 10/04/16 16:00 10/09/16 15:59 10/05/16 16:13 Carroll (Kaylen)Lea NP Oct 05, 2016 16:45
[2016-10-05 20:00] VITALS: BP 111/79
--- NOTE | 2016-10-05 20:42 | Internal Med Progress Note ---
Subjective Physician Name Shreyas Harris Attending Physician Shreyas Harris M.D. Current Medications Medications (Trade) Dose Ordered Sig/Dmitri Route PRN Reason Start Time Stop Time Status Last Admin Dose Admin Acetaminophen (Tylenol) 650 mg Q4H PRN ORAL Fever/Headache/Mild Pain 10/04/16 06:30 11/03/16 06:29 Albuterol/ Ipratropium (DuoNeb 0.5-3(2.5)mg/3ml) 3 ml Q4H PRN HHN Shortness of Breath 10/05/16 16:45 10/10/16 16:44 Chlorhexidine Gluconate 1 applic 1 applic Q24H TOPIC 10/04/16 17:00 11/03/16 16:59 10/05/16 16:06 Dextrose (Dextrose 50%) STAT PRN IV Hypoglycemia 10/04/16 18:30 11/03/16 18:29 Dextrose/Sodium Chloride 1,000 ml @ 75 mls/hr [id number] IV 10/04/16 06:30 11/03/16 06:29 10/05/16 09:20 Fluconazole (Diflucan) 100 mg Q24H GT 10/04/16 21:00 10/10/16 21:01 10/04/16 21:30 Haloperidol Lactate (Haldol) 5 mg Q6H PRN IM Agitation 10/04/16 19:45 11/03/16 19:44 10/05/16 14:22 Heparin Sodium (Porcine) (Heparin 5000 units/ml) 5,000 units EVERY 12 HOURS SUBQ 10/04/16 09:00 11/03/16 08:59 10/05/16 07:59 Morphine Sulfate (Morphine Sulfate) 2 mg Q4H PRN IVP Moderate Pain (Pain Scale 4-6) 10/04/16 06:30 10/11/16 06:29 10/04/16 23:24 Ondansetron HCl (Zofran) 4 mg Q6H PRN IVP Nausea & Vomiting 10/04/16 06:30 11/03/16 06:29 Oxycodone HCl (Roxicodone) 30 mg Q4HR PRN GT Severe Pain (Pain Scale 7-10) 10/04/16 09:00 10/11/16 08:59 Piperacillin Sod/ Tazobactam Sod/ Sodium Chloride (Zosyn/Sodium Chloride) 110 ml @ 27.5 mls/hr Q8HR IVPB 10/04/16 14:00 10/11/16 13:59 10/05/16 13:04 Polyethylene Glycol (Miralax) 17 gm DAILY GT 10/04/16 09:00 11/03/16 08:59 10/05/16 07:59 Polyethylene Glycol (Miralax) 17 gm HSPRN PRN GT Constipation 10/04/16 13:30 11/03/16 13:29 Tamsulosin HCl (Flomax) 0.4 mg DAILY GT 10/04/16 09:00 11/03/16 08:59 10/05/16 07:58 Timolol Maleate (Timoptic 0.25% Op Soln) 1 drop DAILY BOTH EYES 10/04/16 09:00 11/03/16 08:59 10/05/16 07:58 Vancomycin HCl (Vanco rx to dose) 1 ea DAILY PRN MISC . 10/04/16 09:00 11/03/16 08:59 Vancomycin HCl/ Dextrose (Vancomycin/D5W) 275 ml @ 183.333 mls/hr Q12HR@0400,1600 IVPB 10/04/16 16:00 10/09/16 15:59 10/05/16 16:13 Allergies: Coded Allergies: NO KNOWN DRUG ALLERGIES (Verified Allergy, Unknown, 03/06/14) Subjective muffled voice alert and awake x person and place + coughing on tube feeds 12 pt ROS limited bc of mental status Objective Last Vital Signs Date Time Temp Pulse Resp B/P Pulse Ox O2 Delivery O2 Flow Rate FiO2 10/05/16 15:58 98.4 72 20 128/77 99 Nasal Cannula 2.0 10/05/16 05:51 28 Laboratory Tests Test 10/05/16 05:30 Stool Occult Blood Negative (NEGATIVE) Microbiology Date/Time Source Procedure Growth Status 10/05/16 05:30 Stool Clostridium difficile Toxin Assay - Final Complete Intake and Output 10/04/16 10/05/16 19:00 07:00 Intake Total 1076.666 ml 532.5 ml Output Total 1050 ml 1800 ml Balance 26.666 ml -1267.5 ml Free Water 200 ml 400 ml IV Total 576.666 ml 102.5 ml Tube Feeding 300 ml 30 ml Output Urine Total 1050 ml 1800 ml # Bowel Movements 1 Objective GENERAL: ~In no acute distress. ~The patient has a muffled voice. HEENT: ~~NC/AT ~ NECK: ~~Supple. ~No JVD CARDIOVASCULAR: ~~Regular rate and rhythm. ~Normal S1, S2. ~~ LUNGS: ~Clear to auscultation bilaterally. ~No crackles, rhonchi, or rales. ~ ABDOMEN: ~~Soft, no TTP. + G-tube with bilious material EXTREMITIES: ~~No clubbing, cyanosis, or edema. ~~ SKIN: ~Normal skin color. ~No lesions. PSYCH: ~Appropriate mood and affect. NEURO: Can move all extremities. 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 2. Hepatitis C. 3.History of cerebrovascular accident. 4.Hepatitis B. 5.Major depressive disorder. 6.Hypertension. 7.Chronic lower back pain. 8. ~~Malnutrition s/p PEG placement 9. ~~Failure to thrive 11. ~Aspiration PNA 12. ~~ Possible bilateral lung metastasis 13. ~~Metabolic encephalopathy 2/2 PNA + hypercalcemia 14. ~~Endocarditis 15. ~~Hypercalcemia of Malignancy (low PTH) PLAN: 1 Tele 2 Tube feeds - restart nutren @ 30cc/hr with free water 400cc TID 3. ~~IVF - D5NS @ 75cc/hr ; suction orally Q 2 hours; patient is most likely chronically aspirating on secretions. continue scopolamine patch ; start glycopurate 4. ~~Resume meds from SNF 5. ~~NPO 6. ~~Heme/Onc consult with Dr. Anthony 7. ~~ abx - Zosyn ; Vancomycin for endocarditis (dx at [facility] and needs to complete 6 weeks) 8. ~~reviewed CT chest. has bilateral upper lobe infiltrates with possible metastasis. difficult to access without IV contrast however recent PET scan with hypermetabolic activity in same areas suggestive to pulmonary metastasis. will discuss with Oncology 9. ~~resume home medications 10.~~PT mobility 11. pamidronate IVP x 1 12. correct electrolytes; monitor Ca DVT - heparin SHREYAS HARRIS M.D. Oct 05, 2016 20:42
[2016-10-05] MEDS: Fluconazole 100mg tab GT SCH (20:57)
[2016-10-05] MEDS ORDERED: Glycopyrrolate 0.2mg/ml 1ml Vial IV ONE (21:15)
[2016-10-06] VITALS: BP 145/80
[2016-10-06] MEDS: D5NS 1,000 ML IV SCH ×2 (01:27→09:26)
[2016-10-06] MEDS: Vancomycin 1250mg/D5W 275ml IVPB SCH ×4 (03:26→17:41)
[2016-10-06 04:00] VITALS: BP 150/91
[2016-10-06] MEDS: Piperacillin/Tazobactam 3.375 GM in NS 110 ML IVPB SCH ×3 (05:36→21:37)
[2016-10-06 06:46] LABS: MEAN CORPUSCULAR HEMOGLOBIN 31.6 PG (27.0-31.0); MEAN CORPUSCULAR HGB CONC 31.7 G/DL (32.0-36.0); MEAN CORPUSCULAR VOLUME 100 FL (80-99); MEAN PLATELET VOLUME 5.5 FL (6.5-10.1); PLATELET COUNT 216 K/UL (150-450); RED BLOOD COUNT 2.75 M/UL (4.70-6.10); RED CELL DISTRIBUTION WIDTH 17.1 % (11.6-14.8); WHITE BLOOD COUNT 6.6 K/UL (4.8-10.8)
[2016-10-06 07:35] LABS: ANION GAP 6 (5-15); CALCIUM 11.8 mg/dL (8.6-10.2); CARBON DIOXIDE 31 mEQ/L (20-30); CHLORIDE 102 mEQ/L (98-107); CREATININE 0.8 mg/dL (0.7-1.2); GLOMERULAR FILTRATION RATE > 60 mL/min (>60); HEMOLYSIS 0; POTASSIUM 2.9 mEQ/L (3.4-4.9); SODIUM 139 mEQ/L (135-145)
[2016-10-06 08:00] VITALS: BP 144/82
[2016-10-06] MEDS: Miralax 17gm pkt GT SCH (08:45)
[2016-10-06] MEDS: Morphine Sulfate 2mg/ml Inj IVP PRN (08:45)
[2016-10-06] MEDS: Tamsulosin 0.4mg cap GT SCH (08:47)
[2016-10-06] MEDS: Timoptic 0.25% Op Soln 2.5ml BOTH EYES SCH (08:48)
[2016-10-06] MEDS: Heparin 5000 units/ml inj SUBQ SCH ×2 (08:59→21:38)
[2016-10-06] MEDS ORDERED: Heparin 2000 units/Ns 1000ml INJ ONE (10:00)
[2016-10-06 10:55] LABS: BAND NEUTROPHILS % (MANUAL) 0 % (0-8); BASOPHILS % (MANUAL) 0 % (0-2); EOSINOPHILS % (MANUAL) 0 % (0-3); LYMPHOCYTES % (MANUAL) 7 % (20-45); NEUTROPHILS % (MANUAL) 91 % (45-75); PLATELET ESTIMATE ADEQUATE; TOTAL CELLS COUNTED 100
[2016-10-06 10:56] LABS: PLATELET MORPHOLOGY NORMAL
[2016-10-06] MEDS ORDERED: Tubing IV Secondary IV ONE ×2 (11:17)
[2016-10-06] MEDS ORDERED: Sterile Water Irrig 1000ml IRRIG ONE (11:17)
[2016-10-06] MEDS ORDERED: NS 275ml ONE ×2 (11:17→22:57)
[2016-10-06] MEDS ORDERED: D5NS 1000ml IV ONE ×2 (11:17→22:57)
[2016-10-06 12:00] VITALS: BP 122/78
--- NOTE | 2016-10-06 12:13 | Pulmonology Progress Note ---
Assessment/Plan Assessment/Plan ASSESSMENT aspiration PNA SCC throat possible bilateral lung metastasis acute toxic metabolic encephalopathy 2 to PNA and hypercalcemia hypercalcemia of malignancy likely chronic aspiration endocarditis moderate bilateral pleural effusion severe anemia HTN dysphagia, G tube severe protein calorie malnutrition hx of CVA hep B major depressive disorder dysphagia hypokalemia PLAN OF CARE MS floor NPO IVF O2 HHN prn suction q 2 hr , likely chronic aspiration continue Scopolamine patch abx, fup with cx CT chest with Extensive bilateral pulmonary parenchymal disease Given history of recent positive PET scan with lung activity, a significant motor this could represent tumor. The right upper lobe and left perihilar opacities are in particular masslike. However, suspect also a significant component of infiltrates, particularly in the right middle lobe and left lung periphery abx for endocarditis ( dx at [facility]), needs total 6 wks of abx s/p Aredia , Ca still high replace K , check Mg and K in am onco eval noted swallow eval unable to do be done due to decreased alertness recommended TF and VSS when stable strict aspiration and reflux precautions, monitor tolerance continue ASA, statin pain management bowel regimen DVT prophylaxis PT eval and Rx - to mobilize continue Lexapro case discussed and evaluated by supervising physician Subjective Allergies: Coded Allergies: NO KNOWN DRUG ALLERGIES (Verified Allergy, Unknown, 03/06/14) Subjective afebrile, no leukocytosis, weak K-2.9 Objective Last 24 Hour Vital Signs Date Time Temp Pulse Resp B/P Pulse Ox O2 Delivery O2 Flow Rate FiO2 10/06/16 08:00 97.8 74 22 144/82 Nasal Cannula 2.0 10/06/16 06:40 67 20 Nasal Cannula 3.0 10/06/16 06:40 98 Nasal Cannula 3.0 10/06/16 06:40 Nasal Cannula 2.0 10/06/16 04:00 97.5 84 20 150/91 Nasal Cannula 10/06/16 00:00 97.7 87 20 145/80 Nasal Cannula 2.0 10/05/16 20:00 97.6 73 19 111/79 99 Room Air 10/05/16 15:58 98.4 72 20 128/77 99 Nasal Cannula 2.0 Intake and Output 10/05/16 10/06/16 19:00 07:00 Intake Total 787.5 ml 1827.500 ml Output Total 2300 ml Balance -1512.5 ml 1827.500 ml Free Water 400 ml IV Total 757.5 ml 1067.500 ml Tube Feeding 30 ml 360 ml Output Urine Total 2300 ml # Bowel Movements 2 Objective GENERAL: no acute distress.. The patient has a muffled voice. HEENT:: NC/AT NECK: Supple. No JVD CARDIOVASCULAR: Regular rate and rhythm. Normal S1, S2. LUNGS: Clear to auscultation bilaterally ABDOMEN: Soft, + G-tube, + BS EXTREMITIES: No clubbing, cyanosis, or edema. SKIN: ~Normal skin color. No lesions. PSYCH: ~Appropriate mood and affect. NEURO: Can move all extremities. awake Microbiology Date/Time Source Procedure Growth Status 10/05/16 05:30 Stool Clostridium difficile Toxin Assay - Final Complete Laboratory Tests 10/06/16 04:40: White Blood Count 6.6, Red Blood Count 2.75L, Hemoglobin 8.7L, Hematocrit 27.4L , Mean Corpuscular Volume 100H, Mean Corpuscular Hemoglobin 31.6H, Mean Corpuscular Hemoglobin Concent 31.7L, Red Cell Distribution Width 17.1H, Platelet Count 216, Mean Platelet Volume 5.5L, Neutrophils (%) (Auto) , Lymphocytes (%) (Auto) , Monocytes (%) (Auto) , Eosinophils (%) (Auto) , Basophils (%) (Auto) , Differential Total Cells Counted 100, Neutrophils % ( Manual) 91H, Lymphocytes % (Manual) 7L, Monocytes % (Manual) 2, Eosinophils % ( Manual) 0, Basophils % (Manual) 0, Band Neutrophils 0, Platelet Estimate Adequate, Platelet Morphology Normal, Red Blood Cell Morphology Normal, Sodium Level 139, Potassium Level 2.9L, Chloride Level 102, Carbon Dioxide Level 31H, Anion Gap 6, Blood Urea Nitrogen 13, Creatinine 0.8, Estimat Glomerular Filtration Rate > 60, Glucose Level 115H, Calcium Level 11.8H Current Medications Medications (Trade) Dose Ordered Sig/Dmitri Route PRN Reason Start Time Stop Time Status Last Admin Dose Admin Acetaminophen (Tylenol) 650 mg Q4H PRN ORAL Fever/Headache/Mild Pain 10/04/16 06:30 11/03/16 06:29 Albuterol/ Ipratropium (DuoNeb 0.5-3(2.5)mg/3ml) 3 ml Q4H PRN HHN Shortness of Breath 10/05/16 16:45 10/10/16 16:44 Chlorhexidine Gluconate 1 applic 1 applic Q24H TOPIC 10/04/16 17:00 11/03/16 16:59 10/05/16 16:06 Dextrose (Dextrose 50%) STAT PRN IV Hypoglycemia 10/04/16 18:30 11/03/16 18:29 Dextrose/Sodium Chloride 1,000 ml @ 75 mls/hr [id number] IV 10/04/16 06:30 11/03/16 06:29 10/06/16 09:26 Fluconazole (Diflucan) 100 mg Q24H GT 10/04/16 21:00 10/10/16 21:01 10/05/16 20:57 Haloperidol Lactate (Haldol) 5 mg Q6H PRN IM Agitation 10/04/16 19:45 11/03/16 19:44 10/05/16 14:22 Heparin Sodium (Porcine) (Heparin 5000 units/ml) 5,000 units EVERY 12 HOURS SUBQ 10/04/16 09:00 11/03/16 08:59 10/06/16 08:59 Lidocaine HCl (Xylocaine 1% 30ml) 30 ml ONCE ONCE INJ 10/08/16 10:00 10/08/16 10:01 Morphine Sulfate (Morphine Sulfate) 2 mg Q4H PRN IVP Moderate Pain (Pain Scale 4-6) 10/04/16 06:30 10/11/16 06:29 10/06/16 08:45 Ondansetron HCl (Zofran) 4 mg Q6H PRN IVP Nausea & Vomiting 10/04/16 06:30 11/03/16 06:29 Oxycodone HCl (Roxicodone) 30 mg Q4HR PRN GT Severe Pain (Pain Scale 7-10) 10/04/16 09:00 10/11/16 08:59 Piperacillin Sod/ Tazobactam Sod/ Sodium Chloride (Zosyn/Sodium Chloride) 110 ml @ 27.5 mls/hr Q8HR IVPB 10/04/16 14:00 10/11/16 13:59 10/06/16 05:36 Polyethylene Glycol (Miralax) 17 gm DAILY GT 10/04/16 09:00 11/03/16 08:59 10/06/16 08:45 Polyethylene Glycol (Miralax) 17 gm HSPRN PRN GT Constipation 10/04/16 13:30 11/03/16 13:29 Tamsulosin HCl (Flomax) 0.4 mg DAILY GT 10/04/16 09:00 11/03/16 08:59 10/06/16 08:47 Timolol Maleate (Timoptic 0.25% Op Soln) 1 drop DAILY BOTH EYES 10/04/16 09:00 11/03/16 08:59 10/06/16 08:48 Vancomycin HCl (Vanco rx to dose) 1 ea DAILY PRN MISC . 10/04/16 09:00 11/03/16 08:59 Vancomycin HCl/ Dextrose (Vancomycin/D5W) 275 ml @ 183.333 mls/hr Q12HR@0400,1600 IVPB 10/04/16 16:00 10/09/16 15:59 10/06/16 03:26 Carroll (Kaylen)Lea NP Oct 06, 2016 12:13
[2016-10-06] MEDS ORDERED: KCl 10% 40mEq/30ml liquid NG ONE (13:00)
--- NOTE | 2016-10-06 13:59 | Cardiology Report ---
APPROVED REPORT EKG Measurement Heart [id number] 134P18 [id number] Normal sinus rhythm Left axis deviation Abnormal ECG
--- NOTE | 2016-10-06 14:01 | General Progress Note ---
Assessment/Plan Problem List: (1) PNA (pneumonia) ICD Codes: J18.9 - Pneumonia, unspecified organism SNOMED: 878770877 (2) Metabolic encephalopathy ICD Codes: G93.41 - Metabolic encephalopathy SNOMED: 94166588 (3) Hypercalcemia ICD Codes: E83.52 - Hypercalcemia SNOMED: 97437602 (4) Anemia ICD Codes: D64.9 - Anemia, unspecified SNOMED: 633873718 Qualifiers: Qualified Codes: D64.9 - Anemia, unspecified (5) HTN (hypertension) ICD Codes: I10 - Essential (primary) hypertension SNOMED: 72026628 (6) CVA (cerebral infarction) ICD Codes: I63.9 - CVA (cerebral infarction) SNOMED: 002946655 Assessment/Plan Additional pamidronate if S Calcium remains high IVF follow labs replete K Abxs Subjective Date patient seen: Oct 06, 2016 Allergies: Coded Allergies: NO KNOWN DRUG ALLERGIES (Verified Allergy, Unknown, 03/06/14) Subjective Pt was seen for Dr Beverly confused Objective Last 24 Hour Vital Signs Date Time Temp Pulse Resp B/P Pulse Ox O2 Delivery O2 Flow Rate FiO2 10/06/16 08:00 97.8 74 22 144/82 Nasal Cannula 2.0 10/06/16 06:40 67 20 Nasal Cannula 3.0 10/06/16 06:40 98 Nasal Cannula 3.0 10/06/16 06:40 Nasal Cannula 2.0 10/06/16 04:00 97.5 84 20 150/91 Nasal Cannula 10/06/16 00:00 97.7 87 20 145/80 Nasal Cannula 2.0 10/05/16 20:00 97.6 73 19 111/79 99 Room Air 10/05/16 15:58 98.4 72 20 128/77 99 Nasal Cannula 2.0 Intake and Output 10/05/16 10/06/16 19:00 07:00 Intake Total 787.5 ml 1827.500 ml Output Total 2300 ml Balance -1512.5 ml 1827.500 ml Free Water 400 ml IV Total 757.5 ml 1067.500 ml Tube Feeding 30 ml 360 ml Output Urine Total 2300 ml # Bowel Movements 2 Laboratory Tests 10/06/16 04:40: White Blood Count 6.6, Red Blood Count 2.75L, Hemoglobin 8.7L, Hematocrit 27.4L , Mean Corpuscular Volume 100H, Mean Corpuscular Hemoglobin 31.6H, Mean Corpuscular Hemoglobin Concent 31.7L, Red Cell Distribution Width 17.1H, Platelet Count 216, Mean Platelet Volume 5.5L, Neutrophils (%) (Auto) , Lymphocytes (%) (Auto) , Monocytes (%) (Auto) , Eosinophils (%) (Auto) , Basophils (%) (Auto) , Differential Total Cells Counted 100, Neutrophils % ( Manual) 91H, Lymphocytes % (Manual) 7L, Monocytes % (Manual) 2, Eosinophils % ( Manual) 0, Basophils % (Manual) 0, Band Neutrophils 0, Platelet Estimate Adequate, Platelet Morphology Normal, Red Blood Cell Morphology Normal, Sodium Level 139, Potassium Level 2.9L, Chloride Level 102, Carbon Dioxide Level 31H, Anion Gap 6, Blood Urea Nitrogen 13, Creatinine 0.8, Estimat Glomerular Filtration Rate > 60, Glucose Level 115H, Calcium Level 11.8H Height (Feet): 6 Height (Inches): 0.00 Weight (Pounds): 200 Cardiovascular: normal rate Respiratory/Chest: lungs clear Edema: no edema noted YEIMI Wyman Oct 06, 2016 14:01
--- NOTE | 2016-10-06 14:09 | Cardiology Report ---
APPROVED REPORT EKG Measurement Heart [id number] [place] 138P24 [id number] Normal sinus rhythm Anteroseptal infarct, age undetermined Abnormal ECG
[2016-10-06 16:00] VITALS: BP 133/86
[2016-10-06] MEDS: Dyna-Hex 2% Top Sol 8oz TOPIC SCH (17:00)
[2016-10-06 20:00] VITALS: BP 98/68
[2016-10-06] MEDS: Fluconazole 100mg tab GT SCH (21:36)
--- NOTE | 2016-10-06 21:51 | General Progress Note ---
Assessment/Plan Assessment/Plan ASSESSMENT/RECS: 1. 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 Anthony. Potential metastasis in the upper airway field, agree will need outpatient management with oncology, Dr. Anthony is aware 2. Anemia secondary to chronic disease. ferritin is elevated --> hgb goal >7 --> hgb currently stable btwn 8-9 3. Anemia of malignancy 4. Hepatitis C. 5. Major depressive disorder. 6. Hypertension. 7. Malnutrition. 8. Hypercalcemia --> agree with pamidronate as well as iv fluids, will recheck cmp 9. Aspiration pneumonia. 10. Endocarditis. Subjective Constitutional: Reports: no symptoms HEENT: Reports: no symptoms Cardiovascular: Reports: no symptoms Respiratory: Reports: no symptoms Gastrointestinal/Abdominal: Reports: no symptoms Genitourinary: Reports: no symptoms Neurologic/Psychiatric: Reports: no symptoms Endocrine: Reports: no symptoms Hematologic/Lymphatic: Reports: anemia Allergies: Coded Allergies: NO KNOWN DRUG ALLERGIES (Verified Allergy, Unknown, 03/06/14) Subjective tolerating tube feedings, congested, no fevers or chills Objective Last 24 Hour Vital Signs Date Time Temp Pulse Resp B/P Pulse Ox O2 Delivery O2 Flow Rate FiO2 10/06/16 20:11 Nasal Cannula 2.0 10/06/16 20:05 96 Nasal Cannula 3.0 10/06/16 20:05 65 20 Nasal Cannula 3.0 10/06/16 20:00 97.9 68 18 98/68 100 Nasal Cannula 2.0 10/06/16 16:00 97.5 76 20 133/86 Nasal Cannula 2.0 10/06/16 12:00 97.8 72 22 122/78 Nasal Cannula 2.0 10/06/16 08:00 97.8 74 22 144/82 Nasal Cannula 2.0 10/06/16 06:40 67 20 Nasal Cannula 3.0 10/06/16 06:40 98 Nasal Cannula 3.0 10/06/16 06:40 Nasal Cannula 2.0 10/06/16 04:00 97.5 84 20 150/91 Nasal Cannula 10/06/16 00:00 97.7 87 20 145/80 Nasal Cannula 2.0 Intake and Output 10/05/16 10/06/16 19:00 07:00 Intake Total 787.5 ml 1827.500 ml Output Total 2300 ml Balance -1512.5 ml 1827.500 ml Free Water 400 ml IV Total 757.5 ml 1067.500 ml Tube Feeding 30 ml 360 ml Output Urine Total 2300 ml # Bowel Movements 2 Laboratory Tests 10/06/16 04:40: White Blood Count 6.6, Red Blood Count 2.75L, Hemoglobin 8.7L, Hematocrit 27.4L , Mean Corpuscular Volume 100H, Mean Corpuscular Hemoglobin 31.6H, Mean Corpuscular Hemoglobin Concent 31.7L, Red Cell Distribution Width 17.1H, Platelet Count 216, Mean Platelet Volume 5.5L, Neutrophils (%) (Auto) , Lymphocytes (%) (Auto) , Monocytes (%) (Auto) , Eosinophils (%) (Auto) , Basophils (%) (Auto) , Differential Total Cells Counted 100, Neutrophils % ( Manual) 91H, Lymphocytes % (Manual) 7L, Monocytes % (Manual) 2, Eosinophils % ( Manual) 0, Basophils % (Manual) 0, Band Neutrophils 0, Platelet Estimate Adequate, Platelet Morphology Normal, Red Blood Cell Morphology Normal, Sodium Level 139, Potassium Level 2.9L, Chloride Level 102, Carbon Dioxide Level 31H, Anion Gap 6, Blood Urea Nitrogen 13, Creatinine 0.8, Estimat Glomerular Filtration Rate > 60, Glucose Level 115H, Calcium Level 11.8H Height (Feet): 6 Height (Inches): 0.00 Weight (Pounds): 200 General Appearance: WD/WN EENT: PERRL/EOMI Cardiovascular: normal peripheral pulses Respiratory/Chest: chest wall non-tender Abdomen: non tender Extremities: non-tender Edema: no edema noted Pedal (L), no edema noted Pedal (R) 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
[2016-10-07] VITALS (36 sets, daily range): BP systolic 36–138; BP diastolic 22–84
[2016-10-07] MEDS: D5NS 1,000 ML IV SCH ×2 (01:10→12:24)
[2016-10-07] MEDS: Vancomycin 1250mg/D5W 275ml IVPB SCH ×2 (03:33)
[2016-10-07] MEDS: Piperacillin/Tazobactam 3.375 GM in NS 110 ML IVPB SCH ×3 (04:59→22:29)
[2016-10-07 08:20] LABS: ANION GAP 8 (5-15); CALCIUM 11.6 mg/dL (8.6-10.2); CARBON DIOXIDE 31 mEQ/L (20-30); CHLORIDE 101 mEQ/L (98-107); CREATININE 0.8 mg/dL (0.7-1.2); GLOMERULAR FILTRATION RATE > 60 mL/min (>60); HEMOLYSIS 0; MAGNESIUM 1.5 mg/dL (1.7-2.5); POTASSIUM 3.2 mEQ/L (3.4-4.9); SODIUM 140 mEQ/L (135-145)
[2016-10-07 08:39] LABS: BASOPHILS % (AUTO) 0.8 % (0.0-2.0); EOSINOPHILS % (AUTO) 0.4 % (0.0-3.0); LYMPHOCYTES % (AUTO) 6.4 % (20.0-45.0); MEAN CORPUSCULAR HEMOGLOBIN 31.8 PG (27.0-31.0); MEAN CORPUSCULAR HGB CONC 31.3 G/DL (32.0-36.0); MEAN CORPUSCULAR VOLUME 102 FL (80-99); MONOCYTES % (AUTO) 8.7 % (1.0-10.0); NEUTROPHILS % (AUTO) 83.8 % (45.0-75.0); PLATELET COUNT 240 K/UL (150-450); RED CELL DISTRIBUTION WIDTH 17.8 % (11.6-14.8); WHITE BLOOD COUNT 8.5 K/UL (4.8-10.8)
[2016-10-07 08:56] LABS: ABG BASE EXCESS 0.9; ABG PCO2 66.4 mmHg (35.0-45.0)
[2016-10-07 08:57] LABS: ABG ALLEN TEST POSITIVE
[2016-10-07] MEDS: Timoptic 0.25% Op Soln 2.5ml BOTH EYES SCH (09:37)
[2016-10-07] MEDS: Miralax 17gm pkt GT SCH (09:37)
[2016-10-07] MEDS: Tamsulosin 0.4mg cap GT SCH (09:38)
[2016-10-07] MEDS: Heparin 5000 units/ml inj SUBQ SCH ×2 (09:39→21:33)
--- NOTE | 2016-10-07 09:51 | Diagnostic Imaging Report ---
Indication: Dyspnea Comparison: 10/01/16 A single view chest radiograph was obtained. Findings: There is complete opacification of the left hemithorax. There is a right pleural effusion. Some interstitial edema based on the appearance of the right lung. Bones are unremarkable. Impression: Suspected combination of atelectasis/pleural effusion on the left. Development of a right pleural effusion also present. Suspected interstitial edema
[2016-10-07] MEDS ORDERED: D5NS 1,000 ML IV SCH (10:00)
[2016-10-07] MEDS ORDERED: oxyCODONE 15mg IR tab GT PRN ×2 (10:06→13:00)
[2016-10-07] MEDS ORDERED: Morphine Sulfate 2mg/ml Inj IVP PRN ×2 (10:30→14:30)
[2016-10-07 10:37] LABS: ABG PCO2 71.7 mmHg (35.0-45.0)
[2016-10-07 10:38] LABS: ABG ALLEN TEST POSITIVE; ABG BASE EXCESS 7.2
--- NOTE | 2016-10-07 11:04 | Pulmonology Progress Note ---
Assessment/Plan Assessment/Plan ASSESSMENT acute hypoxemic hypercapnic respiratory failure requiring intubation aspiration PNA SCC throat possible bilateral lung metastasis acute toxic metabolic encephalopathy 2 to PNA and hypercalcemia hypercalcemia of malignancy likely chronic aspiration endocarditis moderate bilateral pleural effusion severe anemia HTN dysphagia, G tube severe protein calorie malnutrition hx of CVA hep B major depressive disorder dysphagia hypokalemia PLAN OF CARE transfer to ICU BiPAP repeated ABG in 2 hr with worsening hypercapnia and hypoxemia need emergent intubation , discussed with ED doc dr Jose ordered intubation s/p intubation by ED doctor ( challenging, full of tumors) CXR now ABG in 1 hrs and titrate settings further as needed pulmonary toilet IVF likely chronic aspiration abx, fup with cx CT chest with Extensive bilateral pulmonary parenchymal disease Given history of recent positive PET scan with lung activity, a significant motor this could represent tumor. The right upper lobe and left perihilar opacities are in particular masslike. However, suspect also a significant component of infiltrates, particularly in the right middle lobe and left lung periphery abx for endocarditis ( dx at [facility]), needs total 6 wks of abx s/p Aredia , Ca still high replace K , check Mg and K in am onco eval noted swallow eval unable to do be done due to decreased alertness recommended TF and VSS when stable strict aspiration and reflux precautions, monitor tolerance continue ASA, statin pain management bowel regimen DVT prophylaxis continue Lexapro case discussed and evaluated by supervising physician Subjective Allergies: Coded Allergies: NO KNOWN DRUG ALLERGIES (Verified Allergy, Unknown, 03/06/14) Subjective rapid response earlier this am called due to respiratory distress ABG with evidence of respiratory acidosis and hypercapnia placed on BiPAP and transferred to [facility] afebrile, no leukocytosis, weak, Objective Last 24 Hour Vital Signs Date Time Temp Pulse Resp B/P Pulse Ox O2 Delivery O2 Flow Rate FiO2 10/07/16 09:48 97.7 86 36 124/77 97 Bi-pap 10/07/16 09:08 98 38 100 Facial 100 10/07/16 08:17 52 Nasal Cannula 4.0 10/07/16 08:00 97.8 86 20 118/76 92 Nasal Cannula 4.0 10/07/16 04:17 94 Nasal Cannula 4.0 10/07/16 04:00 97.6 83 20 134/83 Nasal Cannula 4.0 10/07/16 00:00 97.9 76 20 109/79 98 Nasal Cannula 3.0 10/06/16 20:11 Nasal Cannula 2.0 10/06/16 20:05 96 Nasal Cannula 3.0 10/06/16 20:05 65 20 Nasal Cannula 3.0 10/06/16 20:00 97.9 68 18 98/68 100 Nasal Cannula 2.0 10/06/16 16:00 97.5 76 20 133/86 Nasal Cannula 2.0 10/06/16 12:00 97.8 72 22 122/78 Nasal Cannula 2.0 Intake and Output 10/06/16 10/07/16 19:00 07:00 Intake Total 1460.833 ml 1516.667 ml Output Total 1100 ml Balance 1460.833 ml 416.667 ml Free Water 500 ml 400 ml IV Total 600.833 ml 756.667 ml Tube Feeding 360 ml 360 ml Output Urine Total 1100 ml # Bowel Movements 1 1 Objective GENERAL: no acute distress.. The patient has a muffled voice. HEENT:: NC/AT , BiPAP mask on 20/08 100% FiO2 NECK: Supple. No JVD CARDIOVASCULAR: Regular rate and rhythm. Normal S1, S2. LUNGS: few scattered rhonchi ABDOMEN: Soft, + G-tube, + BS EXTREMITIES: No clubbing, cyanosis, or edema. SKIN: ~Normal skin color. No lesions. PSYCH: ~Appropriate mood and affect. NEURO: Can move all extremities. awake Microbiology Date/Time Source Procedure Growth Status 10/05/16 05:30 Stool Clostridium difficile Toxin Assay - Final Complete Laboratory Tests 10/07/16 06:00: White Blood Count 8.5, Red Blood Count 2.90L, Hemoglobin 9.2L, Hematocrit 29.5L , Mean Corpuscular Volume 102H, Mean Corpuscular Hemoglobin 31.8H, Mean Corpuscular Hemoglobin Concent 31.3L, Red Cell Distribution Width 17.8H, Platelet Count 240, Mean Platelet Volume 6.0L, Neutrophils (%) (Auto) 83.8H, Lymphocytes (%) (Auto) 6.4L, Monocytes (%) (Auto) 8.7, Eosinophils (%) (Auto) 0.4, Basophils (%) (Auto) 0.8, Sodium Level 140, Potassium Level 3.2L, Chloride Level 101, Carbon Dioxide Level 31H, Anion Gap 8, Blood Urea Nitrogen 15, Creatinine 0.8, Estimat Glomerular Filtration Rate > 60, Glucose Level 129H, Calcium Level 11.6H, Magnesium Level 1.5L 10/07/16 08:48: Arterial Blood pH 7.258L, Arterial Blood Partial Pressure CO2 66.4*H, Arterial Blood Partial Pressure O2 47.2*L, Arterial Blood HCO3 29.0H, Arterial Blood Oxygen Saturation 71.4L, Arterial Blood Base Excess 0.9, Edmundo Test Positive 10/07/16 10:30: Arterial Blood pH 7.307L, Arterial Blood Partial Pressure CO2 71.7*H, Arterial Blood Partial Pressure O2 44.6*L, Arterial Blood HCO3 35.0H, Arterial Blood Oxygen Saturation 72.8L, Arterial Blood Base Excess 7.2, Edmundo Test Positive Current Medications Medications (Trade) Dose Ordered Sig/Dmitri Route PRN Reason Start Time Stop Time Status Last Admin Dose Admin Acetaminophen (Tylenol) 650 mg Q4H PRN ORAL Fever/Headache/Mild Pain 10/07/16 10:30 11/06/16 10:29 Albuterol/ Ipratropium (DuoNeb 0.5-3(2.5)mg/3ml) 3 ml Q4H PRN HHN Shortness of Breath 10/07/16 12:45 10/12/16 12:44 Chlorhexidine Gluconate (Sierra-Hex 2%) 1 applic Q24H TOPIC 10/07/16 17:00 11/06/16 16:59 Dextrose (Dextrose 50%) STAT PRN IV Hypoglycemia 10/07/16 18:30 11/06/16 18:29 Dextrose/Sodium Chloride 1,000 ml @ 75 mls/hr [id number] IV 10/07/16 10:00 11/06/16 09:59 10/07/16 10:16 Fluconazole (Diflucan) 100 mg Q24H GT 10/07/16 21:00 10/10/16 21:01 Haloperidol Lactate (Haldol) 5 mg Q6H PRN IM Agitation 10/07/16 13:45 11/06/16 13:44 Heparin Sodium (Porcine) (Heparin 5000 units/ml) 5,000 units EVERY 12 HOURS SUBQ 10/07/16 21:00 11/06/16 20:59 Lidocaine HCl (Xylocaine 1% 30ml) 30 ml ONCE ONCE INJ 10/08/16 10:00 10/08/16 10:01 Morphine Sulfate (Morphine Sulfate) 2 mg Q4H PRN IVP Moderate Pain (Pain Scale 4-6) 10/07/16 10:30 10/14/16 10:29 Ondansetron HCl (Zofran) 4 mg Q6H PRN IVP Nausea & Vomiting 10/07/16 12:30 11/06/16 12:29 Oxycodone HCl (Roxicodone) 30 mg Q4HR PRN GT Severe Pain (Pain Scale 7-10) 10/07/16 10:06 10/14/16 12:59 Piperacillin Sod/ Tazobactam Sod 3.375 gm/Sodium Chloride 110 ml @ 27.5 mls/hr Q8HR IVPB 10/07/16 14:00 10/11/16 13:59 Polyethylene Glycol (Miralax) 17 gm DAILY GT 10/08/16 09:00 11/07/16 08:59 Polyethylene Glycol (Miralax) 17 gm HSPRN PRN GT Constipation 10/07/16 13:30 11/06/16 13:29 Tamsulosin HCl (Flomax) 0.4 mg DAILY GT 10/08/16 09:00 11/07/16 08:59 Timolol Maleate (Timoptic 0.25% Op Soln) 1 drop DAILY BOTH EYES 10/08/16 09:00 11/07/16 08:59 Vancomycin HCl (Vanco rx to dose) 1 ea DAILY PRN MISC . 10/08/16 09:00 11/07/16 08:59 Vancomycin HCl/ Dextrose (Vancomycin/D5W) 275 ml @ 183.333 mls/hr Q12HR@0400,1600 IVPB 10/07/16 16:00 10/12/16 15:59 Carroll (Kaylen)Lea NP Oct 07, 2016 11:04
--- NOTE | 2016-10-07 11:40 | Emergency Room Report ---
History of Present Illness General Chief Complaint: Altered Level of Consciousness Source: Medical Record Present Illness Allergies: Coded Allergies: NO KNOWN DRUG ALLERGIES (Verified Allergy, Unknown, 03/06/14) Nursing Documentation-[facility] Past Medical History Deferred: Pt Cognitively Impaired Past Medical History: No History, Except For Hx Cardiac Problems: Yes Hx Hypertension: Yes Hx Cancer: Yes Hx Gastrointestinal Problems: Yes Hx Neurological Problems: Yes Hx Cerebrovascular Accident: Yes Hx Paralysis: Yes Physical Exam Vital Signs Date Time Temp Pulse Resp B/P Pulse Ox O2 Delivery O2 Flow Rate FiO2 10/01/16 13:01 99.0 88 14 106/72 99 Room Air 10/02/16 12:00 2.0 10/02/16 19:30 21 Procedures Intubation Intubation : Consent: Emergent Intubation Method: orotracheal Tube Size (cm): 7.5 Medications: Etomidate, Rocuronium Breath Sounds after Intubation: equal Intubation Complications: no complications Post Intubation Xray: Yes Attempts: One Patient Tolerated: Well Complications: None Progress Asked to evaluate patient by Dr Jose for intubation Arrived to ICU Patient with low O2 sat 60s on BVM high O2 CXR shows complete opacification of left lung Proceeded with intubation On glidescope, noted multiple areas of fungating mass, ?mets, with loss of normal airway/vocal cord anatomy Able to identify left side of epiglottis but unable to visualize vocal cords distally However able to pass ET tube under epiglottis with color change on oximetry, bilateral breath sounds and improved O2 sat Post-procedural CXR shows improved aeration of left side of lung Informed Dr Jose Medical Decision Making Diagnostic Impression: Primary Impression: Sepsis Additional Impressions: Bilateral pulmonary infiltrates on chest x-ray Lethargy Anemia Pneumothorax, left Hypercalcemia Last Vital Signs Date Time Temp Pulse Resp B/P Pulse Ox O2 Delivery O2 Flow Rate FiO2 10/07/16 11:29 99 20 100 10/07/16 09:48 97.7 124/77 97 Bi-pap 10/07/16 08:17 4.0 Disposition: ADMITTED INPATIENT Condition: Serious Referrals: CLAUDIA HARRIS M.D. (PCP) SULAIMAN CROWDER M.D. Oct 07, 2016 11:40
--- NOTE | 2016-10-07 11:40 | Diagnostic Imaging Report ---
Indication: Intubation Comparison: 10/07/16 A single view chest radiograph was obtained. Findings: Interval placement of endotracheal tube noted. The tube is in good position several centimeters above the mirna. Partial reexpansion of the left lung demonstrated. There is masslike opacification in the left perihilar region. Please refer to recently obtained CT 10/03/16. Extensive infiltrates are noted within both lungs. Heart size is within normal limits. Impression: Endotracheal tube in good position. Partial reexpansion of the left lung. Masslike densities and infiltrates demonstrated in both lungs.
[2016-10-07 12:36] LABS: ABG PCO2 53.8 mmHg (35.0-45.0)
[2016-10-07 12:37] LABS: ABG ALLEN TEST POSITIVE
[2016-10-07] MEDS ORDERED: DuoNeb 0.5-3(2.5)mg/3ml neb HHN PRN ×2 (12:45)
[2016-10-07] MEDS ORDERED: Sodium Chloride 550 ML IV ONE (13:15)
[2016-10-07] MEDS ORDERED: Miralax 17gm pkt GT PRN ×2 (13:30)
[2016-10-07] MEDS ORDERED: KCl 10% 40mEq/30ml liquid GT ONE (13:30)
[2016-10-07] MEDS ORDERED: Haloperidol 5mg/ml Inj IM PRN ×2 (13:45)
[2016-10-07] MEDS: LORazepam Inj 2mg/ml 1ml IV PRN (13:47)
[2016-10-07] MEDS ORDERED: Piperacillin/Tazobactam 3.375 GM in NS 110 ML IVPB SCH (14:00)
--- NOTE | 2016-10-07 14:05 | General Progress Note ---
Assessment/Plan Assessment/Plan ASSESSMENT/RECS: 1. 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 Anthony. Potential metastasis in the upper airway field, agree will need outpatient management with oncology, Dr. Anthony is aware 2. Anemia secondary to chronic disease. ferritin is elevated --> hgb goal >7 2. Acute respiratory failure, s/p intubation, BiPAP, is now in the ICU 3. Anemia of malignancy 4. Hepatitis C. 5. Major depressive disorder. 6. Hypertension. 7. Malnutrition. 8. Hypercalcemia --> agree with pamidronate as well as iv fluids, will recheck cmp 9. Aspiration pneumonia. 10. Endocarditis. Subjective Constitutional: Reports: weakness HEENT: Reports: no symptoms Cardiovascular: Reports: no symptoms Respiratory: Reports: no symptoms Gastrointestinal/Abdominal: Reports: no symptoms Genitourinary: Reports: no symptoms Neurologic/Psychiatric: Reports: no symptoms Endocrine: Reports: no symptoms Hematologic/Lymphatic: Reports: anemia Allergies: Coded Allergies: NO KNOWN DRUG ALLERGIES (Verified Allergy, Unknown, 03/06/14) Subjective has been transferred to ICU for acute hypoxic respiratory failure, now intubated Objective Last 24 Hour Vital Signs Date Time Temp Pulse Resp B/P Pulse Ox O2 Delivery O2 Flow Rate FiO2 10/07/16 12:46 96 20 100 10/07/16 12:24 95 25 Venturi Mask 15.0 55 10/07/16 12:08 100 10/07/16 12:00 97.5 78 20 95/66 100 Mechanical Ventilator 100 10/07/16 11:29 99 20 100 10/07/16 09:48 97.7 86 36 124/77 97 Bi-pap 10/07/16 09:08 98 38 100 Facial 100 10/07/16 08:17 52 Nasal Cannula 4.0 10/07/16 08:00 97.8 86 20 118/76 92 Nasal Cannula 4.0 10/07/16 04:17 94 Nasal Cannula 4.0 10/07/16 04:00 97.6 83 20 134/83 Nasal Cannula 4.0 10/07/16 00:00 97.9 76 20 109/79 98 Nasal Cannula 3.0 10/06/16 20:11 Nasal Cannula 2.0 10/06/16 20:05 96 Nasal Cannula 3.0 10/06/16 20:05 65 20 Nasal Cannula 3.0 10/06/16 20:00 97.9 68 18 98/68 100 Nasal Cannula 2.0 10/06/16 16:00 97.5 76 20 133/86 Nasal Cannula 2.0 Intake and Output 10/06/16 10/07/16 19:00 07:00 Intake Total 1460.833 ml 1516.667 ml Output Total 1100 ml Balance 1460.833 ml 416.667 ml Free Water 500 ml 400 ml IV Total 600.833 ml 756.667 ml Tube Feeding 360 ml 360 ml Output Urine Total 1100 ml # Bowel Movements 1 1 Laboratory Tests 10/07/16 06:00: White Blood Count 8.5, Red Blood Count 2.90L, Hemoglobin 9.2L, Hematocrit 29.5L , Mean Corpuscular Volume 102H, Mean Corpuscular Hemoglobin 31.8H, Mean Corpuscular Hemoglobin Concent 31.3L, Red Cell Distribution Width 17.8H, Platelet Count 240, Mean Platelet Volume 6.0L, Neutrophils (%) (Auto) 83.8H, Lymphocytes (%) (Auto) 6.4L, Monocytes (%) (Auto) 8.7, Eosinophils (%) (Auto) 0.4, Basophils (%) (Auto) 0.8, Sodium Level 140, Potassium Level 3.2L, Chloride Level 101, Carbon Dioxide Level 31H, Anion Gap 8, Blood Urea Nitrogen 15, Creatinine 0.8, Estimat Glomerular Filtration Rate > 60, Glucose Level 129H, Calcium Level 11.6H, Magnesium Level 1.5L 10/07/16 08:48: Arterial Blood pH 7.258L, Arterial Blood Partial Pressure CO2 66.4*H, Arterial Blood Partial Pressure O2 47.2*L, Arterial Blood HCO3 29.0H, Arterial Blood Oxygen Saturation 71.4L, Arterial Blood Base Excess 0.9, Edmundo Test Positive 10/07/16 10:30: Arterial Blood pH 7.307L, Arterial Blood Partial Pressure CO2 71.7*H, Arterial Blood Partial Pressure O2 44.6*L, Arterial Blood HCO3 35.0H, Arterial Blood Oxygen Saturation 72.8L, Arterial Blood Base Excess 7.2, Edmundo Test Positive 10/07/16 12:30: Arterial Blood pH 7.391, Arterial Blood Partial Pressure CO2 53.8H, Arterial Blood Partial Pressure O2 121.1H, Arterial Blood HCO3 31.9H, Arterial Blood Oxygen Saturation 98.2H, Arterial Blood Base Excess 6.0, Edmundo Test Positive Height (Feet): 6 Height (Inches): 0.00 Weight (Pounds): 200 General Appearance: lethargic Neck: non-tender Cardiovascular: normal peripheral pulses Abdomen: non tender Extremities: non-tender Edema: mild edema 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
[2016-10-07] MEDS ORDERED: Lidocaine 1% Plain 30 ml INJ ONE (15:00)
[2016-10-07] MEDS ORDERED: Heparin 2000 units/Ns 1000ml INJ ONE (15:00)
[2016-10-07] MEDS ORDERED: Vancomycin 1.25 GM in D5W 275 ML IVPB SCH (16:00)
[2016-10-07] MEDS: Vancomycin 1.25 GM in D5W 275 ML IVPB SCH (16:40)
[2016-10-07] MEDS: Dyna-Hex 2% Top Sol 8oz TOPIC SCH (16:41)
[2016-10-07] MEDS ORDERED: Dyna-Hex 2% Top Sol 8oz TOPIC SCH (17:00)
--- NOTE | 2016-10-07 18:45 | General Progress Note ---
Assessment/Plan Problem List: (1) PNA (pneumonia) ICD Codes: J18.9 - Pneumonia, unspecified organism SNOMED: 391387284 (2) Metabolic encephalopathy ICD Codes: G93.41 - Metabolic encephalopathy SNOMED: 22406863 (3) Hypercalcemia ICD Codes: E83.52 - Hypercalcemia SNOMED: 99161021 (4) Anemia ICD Codes: D64.9 - Anemia, unspecified SNOMED: 774025272 Qualifiers: Qualified Codes: D64.9 - Anemia, unspecified (5) HTN (hypertension) ICD Codes: I10 - Essential (primary) hypertension SNOMED: 37793066 (6) CVA (cerebral infarction) ICD Codes: I63.9 - CVA (cerebral infarction) SNOMED: 079846949 Assessment/Plan Additional pamidronate if S Calcium remains high IVF follow labs replete K and Mag Abxs Vent support Subjective Allergies: Coded Allergies: NO KNOWN DRUG ALLERGIES (Verified Allergy, Unknown, 03/06/14) Subjective Pt was seen for Dr Beverly Intubated in ICU Objective Last 24 Hour Vital Signs Date Time Temp Pulse Resp B/P Pulse Ox O2 Delivery O2 Flow Rate FiO2 10/07/16 18:00 98/70 10/07/16 17:45 84 22 95/72 100 Mechanical Ventilator 100 10/07/16 17:30 86 22 95/72 100 Mechanical Ventilator 100 10/07/16 17:15 85 21 92/69 100 Mechanical Ventilator 100 10/07/16 17:09 85 22 90 10/07/16 17:00 85 21 92/64 100 Mechanical Ventilator 100 10/07/16 17:00 92/64 10/07/16 16:45 85 22 96/67 100 Mechanical Ventilator 100 10/07/16 16:30 86 22 64/67 100 Mechanical Ventilator 100 10/07/16 16:15 87 22 88/66 100 Mechanical Ventilator 100 10/07/16 16:00 97.5 87 22 80/63 100 Mechanical Ventilator 100 10/07/16 16:00 80/63 10/07/16 15:50 61/45 10/07/16 15:00 77 20 36/22 100 Mechanical Ventilator 100 10/07/16 14:46 86 22 100 10/07/16 14:30 86 20 105/67 100 Mechanical Ventilator 100 10/07/16 14:22 Venturi Mask 15.0 55 10/07/16 14:00 86 20 98/60 100 Mechanical Ventilator 100 10/07/16 13:45 100 10/07/16 13:30 86 20 88/58 100 Mechanical Ventilator 100 10/07/16 13:00 82 20 79/56 100 Mechanical Ventilator 100 10/07/16 12:46 96 20 100 10/07/16 12:30 80 20 78/52 100 Mechanical Ventilator 100 10/07/16 12:24 95 25 Venturi Mask 15.0 55 10/07/16 12:08 100 10/07/16 12:00 97.5 78 20 95/66 100 Mechanical Ventilator 100 10/07/16 11:29 99 20 100 10/07/16 09:48 97.7 86 36 124/77 97 Bi-pap 10/07/16 09:08 98 38 100 Facial 100 10/07/16 08:55 88 25 70 Ambu-Bag 15.0 100 10/07/16 08:40 95 25 77 Venturi Mask 15.0 55 10/07/16 08:40 95 25 Venturi Mask 15.0 55 10/07/16 08:17 52 Nasal Cannula 4.0 10/07/16 08:00 97.8 86 20 118/76 92 Nasal Cannula 4.0 10/07/16 07:54 Venturi Mask 15.0 55 10/07/16 07:50 77 Venturi Mask 15.0 55 10/07/16 04:17 94 Nasal Cannula 4.0 10/07/16 04:00 97.6 83 20 134/83 Nasal Cannula 4.0 10/07/16 00:00 97.9 76 20 109/79 98 Nasal Cannula 3.0 10/06/16 20:11 Nasal Cannula 2.0 10/06/16 20:05 96 Nasal Cannula 3.0 10/06/16 20:05 65 20 Nasal Cannula 3.0 10/06/16 20:00 97.9 68 18 98/68 100 Nasal Cannula 2.0 Intake and Output 10/06/16 10/07/16 19:00 07:00 Intake Total 1460.833 ml 1516.667 ml Output Total 1100 ml Balance 1460.833 ml 416.667 ml Free Water 500 ml 400 ml IV Total 600.833 ml 756.667 ml Tube Feeding 360 ml 360 ml Output Urine Total 1100 ml # Bowel Movements 1 1 Laboratory Tests 10/07/16 06:00: White Blood Count 8.5, Red Blood Count 2.90L, Hemoglobin 9.2L, Hematocrit 29.5L , Mean Corpuscular Volume 102H, Mean Corpuscular Hemoglobin 31.8H, Mean Corpuscular Hemoglobin Concent 31.3L, Red Cell Distribution Width 17.8H, Platelet Count 240, Mean Platelet Volume 6.0L, Neutrophils (%) (Auto) 83.8H, Lymphocytes (%) (Auto) 6.4L, Monocytes (%) (Auto) 8.7, Eosinophils (%) (Auto) 0.4, Basophils (%) (Auto) 0.8, Sodium Level 140, Potassium Level 3.2L, Chloride Level 101, Carbon Dioxide Level 31H, Anion Gap 8, Blood Urea Nitrogen 15, Creatinine 0.8, Estimat Glomerular Filtration Rate > 60, Glucose Level 129H, Calcium Level 11.6H, Magnesium Level 1.5L 10/07/16 08:48: Arterial Blood pH 7.258L, Arterial Blood Partial Pressure CO2 66.4*H, Arterial Blood Partial Pressure O2 47.2*L, Arterial Blood HCO3 29.0H, Arterial Blood Oxygen Saturation 71.4L, Arterial Blood Base Excess 0.9, Edmundo Test Positive 10/07/16 10:30: Arterial Blood pH 7.307L, Arterial Blood Partial Pressure CO2 71.7*H, Arterial Blood Partial Pressure O2 44.6*L, Arterial Blood HCO3 35.0H, Arterial Blood Oxygen Saturation 72.8L, Arterial Blood Base Excess 7.2, Edmundo Test Positive 10/07/16 12:30: Arterial Blood pH 7.391, Arterial Blood Partial Pressure CO2 53.8H, Arterial Blood Partial Pressure O2 121.1H, Arterial Blood HCO3 31.9H, Arterial Blood Oxygen Saturation 98.2H, Arterial Blood Base Excess 6.0, Edmundo Test Positive Height (Feet): 6 Height (Inches): 0.00 Weight (Pounds): 200 Cardiovascular: normal rate Respiratory/Chest: rhonchi - bilaterally Edema: no edema noted YEIMI Wyman Oct 07, 2016 18:45
[2016-10-07] MEDS ORDERED: Lidocaine 1% Plain 30 ml INJ PRN (19:00)
[2016-10-07] MEDS ORDERED: Heparin 2000 units/Ns 1000ml INJ PRN (19:00)
[2016-10-07] MEDS: Norepinephrine Bitartrate 8 MG in D5W 500ml 550 ML IV SCH (19:39)
[2016-10-07 19:47] LABS: ABG PCO2 56.8 mmHg (35.0-45.0)
[2016-10-07 19:48] LABS: ABG ALLEN TEST POSITIVE; ABG BASE EXCESS 4.2
[2016-10-07] MEDS ORDERED: Fluconazole 100mg tab GT SCH (21:00)
[2016-10-07] MEDS ORDERED: Heparin 5000 units/ml inj SUBQ SCH (21:00)
[2016-10-07] MEDS: Fluconazole 100mg tab GT SCH (21:32)
[2016-10-08] VITALS (24 sets, daily range): BP systolic 96–134; BP diastolic 60–83
[2016-10-08] MEDS: D5NS 1,000 ML IV SCH ×2 (02:13→15:02)
[2016-10-08] MEDS: Vancomycin 1.25 GM in D5W 275 ML IVPB SCH ×2 (03:50→17:25)
[2016-10-08 05:27] LABS: BASOPHILS % (AUTO) 0.4 % (0.0-2.0); EOSINOPHILS % (AUTO) 0.9 % (0.0-3.0); LYMPHOCYTES % (AUTO) 6.6 % (20.0-45.0); MEAN CORPUSCULAR HEMOGLOBIN 32.7 PG (27.0-31.0); MEAN CORPUSCULAR HGB CONC 32.3 G/DL (32.0-36.0); MEAN CORPUSCULAR VOLUME 101 FL (80-99); MEAN PLATELET VOLUME 6.2 FL (6.5-10.1); MONOCYTES % (AUTO) 9.2 % (1.0-10.0); PLATELET COUNT 219 K/UL (150-450); WHITE BLOOD COUNT 8.2 K/UL (4.8-10.8)
[2016-10-08 05:57] LABS: ANION GAP 10 (5-15); CALCIUM 10.8 mg/dL (8.6-10.2); CARBON DIOXIDE 28 mEQ/L (20-30); CHLORIDE 103 mEQ/L (98-107); CREATININE 0.9 mg/dL (0.7-1.2); GLOMERULAR FILTRATION RATE > 60 mL/min (>60); HEMOLYSIS 0; POTASSIUM 3.1 mEQ/L (3.4-4.9); SODIUM 141 mEQ/L (135-145)
[2016-10-08] MEDS: Piperacillin/Tazobactam 3.375 GM in NS 110 ML IVPB SCH ×3 (06:05→21:59)
[2016-10-08] MEDS: Tamsulosin 0.4mg cap GT SCH (08:18)
[2016-10-08] MEDS: Timoptic 0.25% Op Soln 2.5ml BOTH EYES SCH (08:18)
[2016-10-08] MEDS: Miralax 17gm pkt GT SCH (08:18)
[2016-10-08] MEDS: Heparin 5000 units/ml inj SUBQ SCH ×2 (08:20→20:58)
[2016-10-08] MEDS ORDERED: Timoptic 0.25% Op Soln 2.5ml BOTH EYES SCH (09:00)
[2016-10-08] MEDS ORDERED: Miralax 17gm pkt GT SCH (09:00)
[2016-10-08] MEDS ORDERED: Tamsulosin 0.4mg cap GT SCH (09:00)
[2016-10-08] MEDS ORDERED: Dyna-Hex 2% Top Sol 8oz TOPIC SCH (09:00)
[2016-10-08 09:56] LABS: ABG ALLEN TEST POSITIVE; ABG BASE EXCESS 5.9
--- NOTE | 2016-10-08 09:59 | Diagnostic Imaging Report ---
Indications: Shortness of breath Technique: Portable AP chest Findings: Comparison: 10/07/2016 Endotracheal tube has been removed. Pulmonary inflation has decreased. Diffuse bilateral interstitial infiltrates, nodular alveolar opacities in both lungs persist, latter apparently mildly increased on the left. Right pleural effusion unchanged. Left pleural effusion not excludable. IMPRESSION: Endotracheal extubation Apparent worsening of left lung alveolar opacity Left pleural effusion not excluded No other change
[2016-10-08] MEDS ORDERED: Lidocaine 1% Plain 30 ml INJ ONE ×3 (10:00)
--- NOTE | 2016-10-08 10:26 | Pulmonolgy Critical Care Note ---
Critical Care - Asmt/Plan Problems: (1) Acute respiratory failure (2) PNA (pneumonia) (3) Metabolic encephalopathy (4) Severe anemia (5) Hypercalcemia (6) long-term resident (7) Feeding by G-tube (8) CVA (cerebral infarction) (9) Hepatitis B Respiratory: monitor respiratory rate, adjust FIO2 Cardiac: continue to monitor HR/BP Renal: F/U I&O, keep IV fluid, check electrolytes Infectious Disease: check cultures, continue antibiotics Gastrointestinal: continue feedings/current rate Endocrine: monitor blood sugar, continue sliding scale insulin Hematologic: monitor H/H, transfuse if hgb<8.5 Neurologic: PRN Ativan, PRN Morphine, keep patient comfortable Affect: PRN ativan Prophylaxis: Protonix Time Spent (Minutes): 40 Notes Reviewed: renal Discussed with: nurses, consultants, case coordinator, other - ethics to discuss code status. Critical Care - Objective Last 24 Hour Vital Signs Date Time Temp Pulse Resp B/P Pulse Ox O2 Delivery O2 Flow Rate FiO2 10/08/16 09:00 76 24 110/72 96 Nasal Cannula 2.0 10/08/16 08:00 98.2 79 25 134/75 100 Nasal Cannula 2.0 10/08/16 08:00 80 10/08/16 07:10 96 Nasal Cannula 2.0 28 10/08/16 07:10 Nasal Cannula 2.0 28 10/08/16 07:10 78 20 Nasal Cannula 2.0 28 10/08/16 07:00 79 26 126/74 96 Nasal Cannula 2.0 10/08/16 06:00 76 26 115/78 96 Nasal Cannula 2.0 10/08/16 05:00 76 25 125/71 95 Nasal Cannula 2.0 10/08/16 04:00 98.2 74 25 107/75 95 Nasal Cannula 2.0 10/08/16 03:00 74 23 111/69 95 Nasal Cannula 2.0 10/08/16 02:00 74 24 101/71 94 Nasal Cannula 2.0 10/08/16 01:00 72 25 116/64 96 Nasal Cannula 2.0 10/08/16 00:00 98.0 68 16 106/64 96 Nasal Cannula 2.0 10/07/16 23:45 70 26 103/64 96 Nasal Cannula 2.0 10/07/16 23:30 69 26 103/61 95 Nasal Cannula 2.0 10/07/16 23:15 65 27 106/62 99 Nasal Cannula 2.0 10/07/16 23:00 62 27 110/63 99 Nasal Cannula 2.0 10/07/16 22:45 63 27 101/65 99 Nasal Cannula 2.0 10/07/16 22:30 64 27 116/71 94 Nasal Cannula 2.0 10/07/16 22:15 67 27 123/70 94 Nasal Cannula 2.0 10/07/16 22:00 75 28 116/72 94 Nasal Cannula 2.0 10/07/16 22:00 72 27 121/74 94 Nasal Cannula 2.0 10/07/16 21:45 73 27 127/76 95 Nasal Cannula 2.0 10/07/16 21:30 75 28 116/72 94 Nasal Cannula 2.0 10/07/16 21:15 73 30 130/73 97 Nasal Cannula 2.0 10/07/16 21:00 73 30 119/75 97 Nasal Cannula 2.0 10/07/16 20:45 75 30 126/79 97 Non-Rebreather 100 10/07/16 20:30 76 30 119/78 96 Non-Rebreather 100 10/07/16 20:15 76 32 120/77 96 Non-Rebreather 100 10/07/16 20:00 98.0 81 32 112/73 94 Non-Rebreather 100 10/07/16 20:00 112/73 10/07/16 19:39 107/71 10/07/16 19:30 76 20 Nasal Cannula 2.0 10/07/16 19:30 96 Nasal Cannula 2.0 28 10/07/16 19:30 Nasal Cannula 2.0 28 10/07/16 19:30 Nasal Cannula 2.0 28 10/07/16 19:00 87 30 138/84 100 Mechanical Ventilator 100 10/07/16 18:00 98/70 10/07/16 17:45 84 22 95/72 100 Mechanical Ventilator 100 10/07/16 17:30 86 22 95/72 100 Mechanical Ventilator 100 10/07/16 17:15 85 21 92/69 100 Mechanical Ventilator 100 10/07/16 17:09 85 22 90 10/07/16 17:00 85 21 92/64 100 Mechanical Ventilator 100 10/07/16 17:00 92/64 10/07/16 16:45 85 22 96/67 100 Mechanical Ventilator 100 10/07/16 16:30 86 22 64/67 100 Mechanical Ventilator 100 10/07/16 16:15 87 22 88/66 100 Mechanical Ventilator 100 10/07/16 16:00 97.5 87 22 80/63 100 Mechanical Ventilator 100 10/07/16 16:00 80/63 10/07/16 15:50 61/45 10/07/16 15:00 77 20 36/22 100 Mechanical Ventilator 100 10/07/16 14:46 86 22 100 10/07/16 14:30 86 20 105/67 100 Mechanical Ventilator 100 10/07/16 14:22 Venturi Mask 15.0 55 10/07/16 14:00 86 20 98/60 100 Mechanical Ventilator 10/07/16 13:45 100 10/07/16 13:30 86 20 88/58 100 Mechanical Ventilator 100 10/07/16 13:00 82 20 79/56 100 Mechanical Ventilator 10/07/16 12:46 96 20 100 10/07/16 12:30 80 20 78/52 100 Mechanical Ventilator 10/07/16 12:24 95 25 Venturi Mask 15.0 55 10/07/16 12:08 100 10/07/16 12:00 97.5 78 20 95/66 100 Mechanical Ventilator 10/07/16 11:29 99 20 100 Status: somnolent Condition: critical HEENT: atraumatic Neck: full ROM Lungs: chest wall tender Heart: HR/BP stable, HR/BP unstable Abdomen: soft, non-tender Extremities: no C/C/E, edema Decubiti: location Accucheck: 98 Critical Care - Subjective ICU Day: 3 Intubation Day: self extubatd yesterday Interval Events: looks comfortable, confused,lethargic FI02: 28 Vent Support Breath Rate: 22 Vent Support Mode: AC Vent Tidal Volume: 600 Sputum Amount: Moderate PEEP: 5.0 PIP: 29 Fluids: d5 1/2 NS 75 cc.hour Tube Feeding Amount: 30 I&O: Intake and Output 10/07/16 10/08/16 19:00 07:00 Intake Total 1380.00 ml 1635.69 ml Output Total 490 ml 1170 ml Balance 890.00 ml 465.69 ml Free Water 30 ml 200 ml IV Total 1100.00 ml 1075.69 ml Tube Feeding 150 ml 360 ml Other 100 ml Output Urine Total 490 ml 1170 ml CXR: increasing density at LATASHA ET-Tube: 7.5 ET Position: 24 Labs: Laboratory Tests Test 10/07/16 10:30 10/07/16 12:30 10/07/16 19:30 10/08/16 04:30 Arterial Blood pH 7.307 (7.350-7.450) 7.391 (7.350-7.450) 7.350 (7.350-7.450) Arterial Blood Partial Pressure CO2 71.7 mmHg (35.0-45.0) *H 53.8 mmHg (35.0-45.0) H 56.8 mmHg (35.0-45.0) *H Arterial Blood Partial Pressure O2 44.6 mmHg (75.0-100.0) 121.1 mmHg (75.0-100.0) H 150.1 mmHg (75.0-100.0) H Arterial Blood HCO3 35.0 mmol/L (22.0-26.0) H 31.9 mmol/L (22.0-26.0) H 30.7 mmol/L (22.0-26.0) H Arterial Blood Oxygen Saturation 72.8 % (92.0-98.0) L 98.2 % (92.0-98.0) H 98.6 % (92.0-98.0) H Arterial Blood Base Excess 7.2 6.0 4.2 Edmundo Test Positive Positive Positive White Blood Count 8.2 K/UL (4.8-10.8) Red Blood Count 2.70 M/UL (4.70-6.10) L Hemoglobin 8.8 G/DL (14.2-18.0) L Hematocrit 27.3 % (42.0-52.0) L Mean Corpuscular Volume 101 FL (80-99) H Mean Corpuscular Hemoglobin 32.7 PG (27.0-31.0) H Mean Corpuscular Hemoglobin Concent 32.3 G/DL (32.0-36.0) Red Cell Distribution Width 18.0 % (11.6-14.8) H Platelet Count 219 K/UL (150-450) Mean Platelet Volume 6.2 FL (6.5-10.1) L Neutrophils (%) (Auto) 83.0 % (45.0-75.0) H Lymphocytes (%) (Auto) 6.6 % (20.0-45.0) L Monocytes (%) (Auto) 9.2 % (1.0-10.0) Eosinophils (%) (Auto) 0.9 % (0.0-3.0) Basophils (%) (Auto) 0.4 % (0.0-2.0) Sodium Level 141 mEQ/L (135-145) Potassium Level 3.1 mEQ/L (3.4-4.9) L Chloride Level 103 mEQ/L (98-107) Carbon Dioxide Level 28 mEQ/L (20-30) Anion Gap 10 (5-15) Blood Urea Nitrogen 18 mg/dL (7-23) Creatinine 0.9 mg/dL (0.7-1.2) Estimat Glomerular Filtration Rate > 60 mL/min (>60) Glucose Level 137 mg/dL (74-106) H Calcium Level 10.8 mg/dL (8.6-10.2) H Test 10/08/16 09:47 Arterial Blood pH 7.376 (7.350-7.450) Arterial Blood Partial Pressure CO2 56.0 mmHg (35.0-45.0) *H Arterial Blood Partial Pressure O2 61.6 mmHg (75.0-100.0) L Arterial Blood HCO3 32.1 mmol/L (22.0-26.0) H Arterial Blood Oxygen Saturation 89.1 % (92.0-98.0) L Arterial Blood Base Excess 5.9 Edmundo Test Positive TORSTEN WILLETT Oct 08, 2016 10:26
--- NOTE | 2016-10-08 12:13 | General Progress Note ---
Assessment/Plan Problem List: (1) PNA (pneumonia) ICD Codes: J18.9 - Pneumonia, unspecified organism SNOMED: 862056217 (2) Metabolic encephalopathy ICD Codes: G93.41 - Metabolic encephalopathy SNOMED: 86350725 (3) Hypercalcemia ICD Codes: E83.52 - Hypercalcemia SNOMED: 07423790 (4) Anemia ICD Codes: D64.9 - Anemia, unspecified SNOMED: 340958174 Qualifiers: Qualified Codes: D64.9 - Anemia, unspecified (5) HTN (hypertension) ICD Codes: I10 - Essential (primary) hypertension SNOMED: 05793047 (6) CVA (cerebral infarction) ICD Codes: I63.9 - CVA (cerebral infarction) SNOMED: 615587542 Status Narrative S Ca better still hypokalemic Assessment/Plan IVF follow labs replete K Abxs Subjective Allergies: Coded Allergies: NO KNOWN DRUG ALLERGIES (Verified Allergy, Unknown, 03/06/14) Subjective Pt was seen for Dr Beverly Intubated in ICU Extubated Objective Last 24 Hour Vital Signs Date Time Temp Pulse Resp B/P Pulse Ox O2 Delivery O2 Flow Rate FiO2 10/08/16 12:01 72 10/08/16 11:00 73 26 100/68 98 Nasal Cannula 2.0 10/08/16 10:00 74 26 123/76 96 Nasal Cannula 2.0 10/08/16 09:00 76 24 110/72 96 Nasal Cannula 2.0 10/08/16 08:00 98.2 79 25 134/75 100 Nasal Cannula 2.0 10/08/16 08:00 80 10/08/16 07:10 96 Nasal Cannula 2.0 28 10/08/16 07:10 Nasal Cannula 2.0 28 10/08/16 07:10 78 20 Nasal Cannula 2.0 28 10/08/16 07:00 79 26 126/74 96 Nasal Cannula 2.0 10/08/16 06:00 76 26 115/78 96 Nasal Cannula 2.0 10/08/16 05:00 76 25 125/71 95 Nasal Cannula 2.0 10/08/16 04:00 98.2 74 25 107/75 95 Nasal Cannula 2.0 10/08/16 03:00 74 23 111/69 95 Nasal Cannula 2.0 10/08/16 02:00 74 24 101/71 94 Nasal Cannula 2.0 10/08/16 01:00 72 25 116/64 96 Nasal Cannula 2.0 10/08/16 00:00 98.0 68 16 106/64 96 Nasal Cannula 2.0 10/07/16 23:45 70 26 103/64 96 Nasal Cannula 2.0 10/07/16 23:30 69 26 103/61 95 Nasal Cannula 2.0 10/07/16 23:15 65 27 106/62 99 Nasal Cannula 2.0 10/07/16 23:00 62 27 110/63 99 Nasal Cannula 2.0 10/07/16 22:45 63 27 101/65 99 Nasal Cannula 2.0 10/07/16 22:30 64 27 116/71 94 Nasal Cannula 2.0 10/07/16 22:15 67 27 123/70 94 Nasal Cannula 2.0 10/07/16 22:00 75 28 116/72 94 Nasal Cannula 2.0 10/07/16 22:00 72 27 121/74 94 Nasal Cannula 2.0 10/07/16 21:45 73 27 127/76 95 Nasal Cannula 2.0 10/07/16 21:30 75 28 116/72 94 Nasal Cannula 2.0 10/07/16 21:15 73 30 130/73 97 Nasal Cannula 2.0 10/07/16 21:00 73 30 119/75 97 Nasal Cannula 2.0 10/07/16 20:45 75 30 126/79 97 Non-Rebreather 100 10/07/16 20:30 76 30 119/78 96 Non-Rebreather 100 10/07/16 20:15 76 32 120/77 96 Non-Rebreather 100 10/07/16 20:00 98.0 81 32 112/73 94 Non-Rebreather 100 10/07/16 20:00 112/73 10/07/16 19:39 107/71 10/07/16 19:30 76 20 Nasal Cannula 2.0 28 10/07/16 19:30 96 Nasal Cannula 2.0 28 10/07/16 19:30 Nasal Cannula 2.0 28 10/07/16 19:30 Nasal Cannula 2.0 28 10/07/16 19:00 87 30 138/84 100 Mechanical Ventilator 100 10/07/16 18:00 98/70 10/07/16 17:45 84 22 95/72 100 Mechanical Ventilator 100 10/07/16 17:30 86 22 95/72 100 Mechanical Ventilator 100 10/07/16 17:15 85 21 92/69 100 Mechanical Ventilator 100 10/07/16 17:09 85 22 90 10/07/16 17:00 85 21 92/64 100 Mechanical Ventilator 100 10/07/16 17:00 92/64 10/07/16 16:45 85 22 96/67 100 Mechanical Ventilator 10/07/16 16:30 86 22 64/67 100 Mechanical Ventilator 100 10/07/16 16:15 87 22 88/66 100 Mechanical Ventilator 100 10/07/16 16:00 97.5 87 22 80/63 100 Mechanical Ventilator 100 10/07/16 16:00 80/63 10/07/16 15:50 61/45 10/07/16 15:00 77 20 36/22 100 Mechanical Ventilator 10/07/16 14:46 86 22 100 10/07/16 14:30 86 20 105/67 100 Mechanical Ventilator 10/07/16 14:22 Venturi Mask 15.0 55 10/07/16 14:00 86 20 98/60 100 Mechanical Ventilator 100 10/07/16 13:45 100 10/07/16 13:30 86 20 88/58 100 Mechanical Ventilator 10/07/16 13:00 82 20 79/56 100 Mechanical Ventilator 10/07/16 12:46 96 20 100 10/07/16 12:30 80 20 78/52 100 Mechanical Ventilator 10/07/16 12:24 95 25 Venturi Mask 15.0 55 Intake and Output 10/07/16 10/08/16 19:00 07:00 Intake Total 1380.00 ml 1635.69 ml Output Total 490 ml 1170 ml Balance 890.00 ml 465.69 ml Free Water 30 ml 200 ml IV Total 1100.00 ml 1075.69 ml Tube Feeding 150 ml 360 ml Other 100 ml Output Urine Total 490 ml 1170 ml Laboratory Tests 10/07/16 12:30: Arterial Blood pH 7.391, Arterial Blood Partial Pressure CO2 53.8H, Arterial Blood Partial Pressure O2 121.1H, Arterial Blood HCO3 31.9H, Arterial Blood Oxygen Saturation 98.2H, Arterial Blood Base Excess 6.0, Edmundo Test Positive 10/07/16 19:30: Arterial Blood pH 7.350, Arterial Blood Partial Pressure CO2 56.8*H, Arterial Blood Partial Pressure O2 150.1H, Arterial Blood HCO3 30.7H, Arterial Blood Oxygen Saturation 98.6H, Arterial Blood Base Excess 4.2, Edmundo Test Positive 10/08/16 04:30: White Blood Count 8.2, Red Blood Count 2.70L, Hemoglobin 8.8L, Hematocrit 27.3L , Mean Corpuscular Volume 101H, Mean Corpuscular Hemoglobin 32.7H, Mean Corpuscular Hemoglobin Concent 32.3, Red Cell Distribution Width 18.0H, Platelet Count 219, Mean Platelet Volume 6.2L, Neutrophils (%) (Auto) 83.0H, Lymphocytes (%) (Auto) 6.6L, Monocytes (%) (Auto) 9.2, Eosinophils (%) (Auto) 0.9, Basophils (%) (Auto) 0.4, Sodium Level 141, Potassium Level 3.1L, Chloride Level 103, Carbon Dioxide Level 28, Anion Gap 10, Blood Urea Nitrogen 18, Creatinine 0.9, Estimat Glomerular Filtration Rate > 60, Glucose Level 137H, Calcium Level 10.8H 10/08/16 09:47: Arterial Blood pH 7.376, Arterial Blood Partial Pressure CO2 56.0*H, Arterial Blood Partial Pressure O2 61.6L, Arterial Blood HCO3 32.1H, Arterial Blood Oxygen Saturation 89.1L, Arterial Blood Base Excess 5.9, Edmundo Test Positive Height (Feet): 6 Height (Inches): 0.00 Weight (Pounds): 200 Cardiovascular: normal rate Respiratory/Chest: rhonchi - bilaterally Edema: 1+ Generalized YEIMI MARTINEZ Oct 08, 2016 12:13
[2016-10-08] MEDS ORDERED: NS 550ML IV ONE (15:45)
[2016-10-08] MEDS ORDERED: Tubing IV Secondary IV ONE (15:45)
[2016-10-08] MEDS ORDERED: D5NS 1000ml IV ONE (15:45)
[2016-10-08] MEDS ORDERED: NS 275ml ONE (15:45)
--- NOTE | 2016-10-08 17:16 | General Progress Note ---
Assessment/Plan Assessment/Plan ASSESSMENT/RECS: 1. 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 Anthony. Potential metastasis in the upper airway field, agree will need outpatient management with oncology, Dr. Anthony is aware 2. Anemia secondary to chronic disease. ferritin is elevated --> hgb goal >7 2. Acute respiratory failure, s/p intubation, BiPAP, is now in the ICU ---> has been extubated 3. Anemia of malignancy 4. Hepatitis C. 5. Major depressive disorder. 6. Hypertension. 7. Malnutrition. 8. Hypercalcemia --> agree with pamidronate as well as iv fluids, will recheck cmp 9. Aspiration pneumonia. 10. Endocarditis. Subjective Constitutional: Reports: no symptoms HEENT: Reports: no symptoms Cardiovascular: Reports: no symptoms Respiratory: Reports: no symptoms Gastrointestinal/Abdominal: Reports: no symptoms Genitourinary: Reports: no symptoms Neurologic/Psychiatric: Reports: no symptoms Endocrine: Reports: no symptoms Hematologic/Lymphatic: Reports: anemia Allergies: Coded Allergies: NO KNOWN DRUG ALLERGIES (Verified Allergy, Unknown, 03/06/14) Subjective is now extubated Objective Last 24 Hour Vital Signs Date Time Temp Pulse Resp B/P Pulse Ox O2 Delivery O2 Flow Rate FiO2 10/08/16 16:00 73 10/08/16 16:00 98.3 75 25 111/70 100 Nasal Cannula 2.0 10/08/16 15:00 76 26 125/83 95 Nasal Cannula 2.0 10/08/16 14:00 75 25 121/75 96 Nasal Cannula 2.0 10/08/16 13:00 73 26 107/60 100 Nasal Cannula 2.0 10/08/16 12:01 72 10/08/16 12:00 98.4 74 26 96/63 97 Nasal Cannula 2.0 10/08/16 11:00 73 26 100/68 98 Nasal Cannula 2.0 10/08/16 10:00 74 26 123/76 96 Nasal Cannula 2.0 10/08/16 09:00 76 24 110/72 96 Nasal Cannula 2.0 10/08/16 08:00 98.2 79 25 134/75 100 Nasal Cannula 2.0 10/08/16 08:00 80 10/08/16 07:10 96 Nasal Cannula 2.0 28 10/08/16 07:10 Nasal Cannula 2.0 28 10/08/16 07:10 78 20 Nasal Cannula 2.0 28 10/08/16 07:00 79 26 126/74 96 Nasal Cannula 2.0 10/08/16 06:00 76 26 115/78 96 Nasal Cannula 2.0 10/08/16 05:00 76 25 125/71 95 Nasal Cannula 2.0 10/08/16 04:00 98.2 74 25 107/75 95 Nasal Cannula 2.0 10/08/16 03:00 74 23 111/69 95 Nasal Cannula 2.0 10/08/16 02:00 74 24 101/71 94 Nasal Cannula 2.0 10/08/16 01:00 72 25 116/64 96 Nasal Cannula 2.0 10/08/16 00:00 98.0 68 16 106/64 96 Nasal Cannula 2.0 10/07/16 23:45 70 26 103/64 96 Nasal Cannula 2.0 10/07/16 23:30 69 26 103/61 95 Nasal Cannula 2.0 10/07/16 23:15 65 27 106/62 99 Nasal Cannula 2.0 10/07/16 23:00 62 27 110/63 99 Nasal Cannula 2.0 10/07/16 22:45 63 27 101/65 99 Nasal Cannula 2.0 10/07/16 22:30 64 27 116/71 94 Nasal Cannula 2.0 10/07/16 22:15 67 27 123/70 94 Nasal Cannula 2.0 10/07/16 22:00 75 28 116/72 94 Nasal Cannula 2.0 10/07/16 22:00 72 27 121/74 94 Nasal Cannula 2.0 10/07/16 21:45 73 27 127/76 95 Nasal Cannula 2.0 10/07/16 21:30 75 28 116/72 94 Nasal Cannula 2.0 10/07/16 21:15 73 30 130/73 97 Nasal Cannula 2.0 10/07/16 21:00 73 30 119/75 97 Nasal Cannula 2.0 10/07/16 20:45 75 30 126/79 97 Non-Rebreather 100 10/07/16 20:30 76 30 119/78 96 Non-Rebreather 100 10/07/16 20:15 76 32 120/77 96 Non-Rebreather 100 10/07/16 20:00 98.0 81 32 112/73 94 Non-Rebreather 100 10/07/16 20:00 112/73 10/07/16 19:39 107/71 10/07/16 19:30 76 20 Nasal Cannula 2.0 10/07/16 19:30 96 Nasal Cannula 2.0 10/07/16 19:30 Nasal Cannula 2.0 28 10/07/16 19:30 Nasal Cannula 2.0 28 10/07/16 19:00 87 30 138/84 100 Mechanical Ventilator 100 10/07/16 18:00 98/70 10/07/16 17:45 84 22 95/72 100 Mechanical Ventilator 100 10/07/16 17:30 86 22 95/72 100 Mechanical Ventilator 100 10/07/16 17:15 85 21 92/69 100 Mechanical Ventilator 100 Intake and Output 10/07/16 10/08/16 19:00 07:00 Intake Total 1380.00 ml 1635.69 ml Output Total 490 ml 1170 ml Balance 890.00 ml 465.69 ml Free Water 30 ml 200 ml IV Total 1100.00 ml 1075.69 ml Tube Feeding 150 ml 360 ml Other 100 ml Output Urine Total 490 ml 1170 ml Laboratory Tests 10/07/16 19:30: Arterial Blood pH 7.350, Arterial Blood Partial Pressure CO2 56.8*H, Arterial Blood Partial Pressure O2 150.1H, Arterial Blood HCO3 30.7H, Arterial Blood Oxygen Saturation 98.6H, Arterial Blood Base Excess 4.2, Edmundo Test Positive 10/08/16 04:30: White Blood Count 8.2, Red Blood Count 2.70L, Hemoglobin 8.8L, Hematocrit 27.3L , Mean Corpuscular Volume 101H, Mean Corpuscular Hemoglobin 32.7H, Mean Corpuscular Hemoglobin Concent 32.3, Red Cell Distribution Width 18.0H, Platelet Count 219, Mean Platelet Volume 6.2L, Neutrophils (%) (Auto) 83.0H, Lymphocytes (%) (Auto) 6.6L, Monocytes (%) (Auto) 9.2, Eosinophils (%) (Auto) 0.9, Basophils (%) (Auto) 0.4, Sodium Level 141, Potassium Level 3.1L, Chloride Level 103, Carbon Dioxide Level 28, Anion Gap 10, Blood Urea Nitrogen 18, Creatinine 0.9, Estimat Glomerular Filtration Rate > 60, Glucose Level 137H, Calcium Level 10.8H 10/08/16 09:47: Arterial Blood pH 7.376, Arterial Blood Partial Pressure CO2 56.0*H, Arterial Blood Partial Pressure O2 61.6L, Arterial Blood HCO3 32.1H, Arterial Blood Oxygen Saturation 89.1L, Arterial Blood Base Excess 5.9, Edmundo Test Positive Height (Feet): 6 Height (Inches): 0.00 Weight (Pounds): 200 General Appearance: WD/WN EENT: PERRL/EOMI Neck: non-tender Cardiovascular: normal peripheral pulses Respiratory/Chest: chest wall non-tender Abdomen: non tender Extremities: non-tender Edema: no edema noted Pedal (L), no edema noted Pedal (R) Neurologic: health data administrator II-XII grossly normal Skin: warm/dry Leonardo Martin Oct 08, 2016 17:16
[2016-10-08] MEDS: Dyna-Hex 2% Top Sol 8oz TOPIC SCH (17:24)
[2016-10-08] MEDS: Norepinephrine Bitartrate 8 MG in D5W 500ml 550 ML IV SCH (20:00)
[2016-10-08] MEDS: Fluconazole 100mg tab GT SCH (20:57)
[2016-10-09] VITALS (15 sets, daily range): BP systolic 93–130; BP diastolic 55–76
[2016-10-09] MEDS: D5NS 1,000 ML IV SCH (03:36)
[2016-10-09] MEDS: Vancomycin 1.25 GM in D5W 275 ML IVPB SCH ×2 (03:36→16:16)
[2016-10-09] MEDS: Piperacillin/Tazobactam 3.375 GM in NS 110 ML IVPB SCH ×3 (05:45→21:39)
[2016-10-09 05:49] LABS: MEAN CORPUSCULAR HEMOGLOBIN 32.3 PG (27.0-31.0); MEAN CORPUSCULAR HGB CONC 31.4 G/DL (32.0-36.0); MEAN CORPUSCULAR VOLUME 103 FL (80-99); MEAN PLATELET VOLUME 6.1 FL (6.5-10.1); PLATELET COUNT 164 K/UL (150-450); RED BLOOD COUNT 2.69 M/UL (4.70-6.10); RED CELL DISTRIBUTION WIDTH 18.8 % (11.6-14.8); WHITE BLOOD COUNT 7.9 K/UL (4.8-10.8)
[2016-10-09 06:13] LABS: ALANINE AMINOTRANSFERASE 22 U/L (3-41); ALBUMIN/GLOBULIN RATIO 0.5 (1.0-2.7); ANION GAP 5 (5-15); ASPARTATE AMINO TRANSFERASE 26 U/L (5-40); CALCIUM 10.5 mg/dL (8.6-10.2); CARBON DIOXIDE 29 mEQ/L (20-30); CHLORIDE 106 mEQ/L (98-107); CREATININE 0.8 mg/dL (0.7-1.2); GLOMERULAR FILTRATION RATE > 60 mL/min (>60); HEMOLYSIS 6; MAGNESIUM 1.7 mg/dL (1.7-2.5); PHOSPHORUS 2.2 mg/dL (2.5-4.8); POTASSIUM 3.2 mEQ/L (3.4-4.9); SODIUM 140 mEQ/L (135-145); TOTAL PROTEIN 6.8 g/dL (6.6-8.7)
--- NOTE | 2016-10-09 08:11 | Pulmonolgy Critical Care Note ---
Critical Care - Asmt/Plan Problems: (1) Acute respiratory failure (2) PNA (pneumonia) (3) Metabolic encephalopathy (4) Severe anemia (5) Hypercalcemia (6) [facility] resident (7) Feeding by G-tube (8) CVA (cerebral infarction) (9) Hepatitis B Respiratory: monitor respiratory rate, adjust FIO2 Cardiac: continue to monitor HR/BP Renal: decrease IV fluid, other - K and phos supplement Infectious Disease: check cultures, continue antibiotics, other - check sputum , sputum induction Gastrointestinal: continue feedings/current rate Endocrine: monitor blood sugar, check TSH, continue sliding scale insulin Hematologic: transfuse if hgb<8.5 Neurologic: PRN Ativan, PRN Morphine, keep patient comfortable Affect: PRN ativan Prophylaxis: Protonix Notes Reviewed: green chain worker, renal Discussed with: nurses, consultants, rn field case managercampaign marketing manager - Objective Last 24 Hour Vital Signs Date Time Temp Pulse Resp B/P Pulse Ox O2 Delivery O2 Flow Rate FiO2 10/09/16 07:00 61 25 93/57 98 Nasal Cannula 2.0 10/09/16 06:00 68 25 102/64 98 Nasal Cannula 2.0 10/09/16 05:00 68 25 106/69 98 Nasal Cannula 2.0 10/09/16 04:00 97.9 69 26 117/70 98 Nasal Cannula 2.0 10/09/16 04:00 73 10/09/16 03:00 74 33 106/55 98 Nasal Cannula 2.0 10/09/16 02:00 69 30 105/67 98 Nasal Cannula 2.0 10/09/16 01:00 75 29 130/73 96 Nasal Cannula 2.0 10/09/16 00:00 74 10/09/16 00:00 97.6 73 28 124/74 95 Nasal Cannula 2.0 10/08/16 23:00 75 29 129/74 96 Nasal Cannula 2.0 10/08/16 22:00 74 28 114/72 97 Nasal Cannula 2.0 10/08/16 21:00 73 27 116/73 98 Nasal Cannula 2.0 10/08/16 20:00 72 10/08/16 20:00 98.1 73 30 113/71 100 Nasal Cannula 2.0 10/08/16 20:00 113/71 10/08/16 19:30 98 Nasal Cannula 2.0 28 10/08/16 19:30 Nasal Cannula 2.0 28 10/08/16 19:30 72 20 Nasal Cannula 2.0 28 10/08/16 19:00 67 24 121/71 97 Nasal Cannula 2.0 10/08/16 18:00 70 24 119/70 97 Nasal Cannula 2.0 10/08/16 17:00 73 26 129/75 97 Nasal Cannula 2.0 10/08/16 16:00 73 10/08/16 16:00 98.3 75 25 111/70 100 Nasal Cannula 2.0 10/08/16 15:00 76 26 125/83 95 Nasal Cannula 2.0 10/08/16 14:00 75 25 121/75 96 Nasal Cannula 2.0 10/08/16 13:00 73 26 107/60 100 Nasal Cannula 2.0 10/08/16 12:01 72 10/08/16 12:00 98.4 74 26 96/63 97 Nasal Cannula 2.0 10/08/16 11:00 73 26 100/68 98 Nasal Cannula 2.0 10/08/16 10:00 74 26 123/76 96 Nasal Cannula 2.0 10/08/16 09:00 76 24 110/72 96 Nasal Cannula 2.0 Status: somnolent Condition: critical HEENT: atraumatic Neck: full ROM Lungs: clear Heart: HR/BP stable, HR/BP unstable Abdomen: non-tender, active bowel sounds, feeding tube Decubiti: location Accucheck: Critical Care - Subjective ROS Limited/Unobtainable: Yes ICU Day: 3 Intubation Day: self extubated Interval Events: mental status improved EKG Rhythm: Sinus Rhythm FI02: 28 Vent Support Breath Rate: 22 Vent Support Mode: AC Vent Tidal Volume: 600 Sputum Amount: Moderate PEEP: 5.0 PIP: 29 Fluids: d5 1/2 NS 75 cc.hour Tube Feeding Amount: 30 I&O: Intake and Output 10/08/16 10/09/16 19:00 07:00 Intake Total 2925.833 ml 2885.83 ml Output Total 985 ml 810 ml Balance 1940.833 ml 2075.83 ml Free Water 1200 ml 1200 ml IV Total 1365.833 ml 1295.83 ml Tube Feeding 360 ml 360 ml Other 30 ml Output Urine Total 985 ml 810 ml # Bowel Movements 2 CXR: worsening Left lung infiltrate /collapse ET-Tube: 7.5 ET Position: 24 Labs: Laboratory Tests Test 10/08/16 09:47 10/09/16 04:35 Arterial Blood pH 7.376 (7.350-7.450) Arterial Blood Partial Pressure CO2 56.0 mmHg (35.0-45.0) *H Arterial Blood Partial Pressure O2 61.6 mmHg (75.0-100.0) L Arterial Blood HCO3 32.1 mmol/L (22.0-26.0) H Arterial Blood Oxygen Saturation 89.1 % (92.0-98.0) L Arterial Blood Base Excess 5.9 Edmundo Test Positive White Blood Count 7.9 K/UL (4.8-10.8) Red Blood Count 2.69 M/UL (4.70-6.10) L Hemoglobin 8.7 G/DL (14.2-18.0) L Hematocrit 27.6 % (42.0-52.0) L Mean Corpuscular Volume 103 FL (80-99) H Mean Corpuscular Hemoglobin 32.3 PG (27.0-31.0) H Mean Corpuscular Hemoglobin Concent 31.4 G/DL (32.0-36.0) L Red Cell Distribution Width 18.8 % (11.6-14.8) H Platelet Count 164 K/UL (150-450) Mean Platelet Volume 6.1 FL (6.5-10.1) L Neutrophils (%) (Auto) % (45.0-75.0) Lymphocytes (%) (Auto) % (20.0-45.0) Monocytes (%) (Auto) % (1.0-10.0) Eosinophils (%) (Auto) % (0.0-3.0) Basophils (%) (Auto) % (0.0-2.0) Sodium Level 140 mEQ/L (135-145) Potassium Level 3.2 mEQ/L (3.4-4.9) L Chloride Level 106 mEQ/L (98-107) Carbon Dioxide Level 29 mEQ/L (20-30) Anion Gap 5 (5-15) Blood Urea Nitrogen 16 mg/dL (7-23) Creatinine 0.8 mg/dL (0.7-1.2) Estimat Glomerular Filtration Rate > 60 mL/min (>60) Glucose Level 122 mg/dL (74-106) H Calcium Level 10.5 mg/dL (8.6-10.2) H Phosphorus Level 2.2 mg/dL (2.5-4.8) L Magnesium Level 1.7 mg/dL (1.7-2.5) Total Bilirubin 0.5 mg/dL (0.0-1.2) Aspartate Amino Transf (AST/SGOT) 26 U/L (5-40) Alanine Aminotransferase (ALT/SGPT) 22 U/L (3-41) Alkaline Phosphatase 65 U/L (40-129) Total Protein 6.8 g/dL (6.6-8.7) Albumin 2.3 g/dL (3.5-5.2) L Globulin 4.5 g/dL Albumin/Globulin Ratio 0.5 (1.0-2.7) L TORSTEN WILLETT Oct 09, 2016 08:11
[2016-10-09 09:15] LABS: PTH-RELATED PROTEIN <1.1 pmol/L (.)
[2016-10-09 09:51] LABS: ABG ALLEN TEST POSITIVE; ABG BASE EXCESS 4.4; ABG PCO2 52.6 mmHg (35.0-45.0)
[2016-10-09] MEDS ORDERED: Potassium Phosphate 30 MM in Sodium Chloride 550 ML IV ONE (10:00)
[2016-10-09] MEDS: LORazepam Inj 2mg/ml 1ml IV PRN (10:11)
[2016-10-09] MEDS: Tamsulosin 0.4mg cap GT SCH (10:12)
[2016-10-09] MEDS: Timoptic 0.25% Op Soln 2.5ml BOTH EYES SCH (10:12)
[2016-10-09] MEDS: Miralax 17gm pkt GT SCH (10:12)
[2016-10-09] MEDS: Heparin 5000 units/ml inj SUBQ SCH ×2 (10:16→21:00)
[2016-10-09] MEDS ORDERED: LORazepam Inj 2mg/ml 1ml IV PRN (12:00)
[2016-10-09] MEDS ORDERED: Haloperidol 5mg/ml Inj IM PRN (12:00)
[2016-10-09] MEDS ORDERED: DuoNeb 0.5-3(2.5)mg/3ml neb HHN PRN (12:45)
--- NOTE | 2016-10-09 12:58 | General Progress Note ---
Assessment/Plan Problem List: (1) PNA (pneumonia) ICD Codes: J18.9 - Pneumonia, unspecified organism SNOMED: 668907376 (2) Metabolic encephalopathy ICD Codes: G93.41 - Metabolic encephalopathy SNOMED: 17479214 (3) Hypercalcemia ICD Codes: E83.52 - Hypercalcemia SNOMED: 33733075 (4) Anemia ICD Codes: D64.9 - Anemia, unspecified SNOMED: 081873153 Qualifiers: Qualified Codes: D64.9 - Anemia, unspecified (5) HTN (hypertension) ICD Codes: I10 - Essential (primary) hypertension SNOMED: 98721321 (6) CVA (cerebral infarction) ICD Codes: I63.9 - CVA (cerebral infarction) SNOMED: 967339747 Status Narrative hypercalcemia better Assessment/Plan IVF follow labs replete K Abxs Subjective Allergies: Coded Allergies: NO KNOWN DRUG ALLERGIES (Verified Allergy, Unknown, 03/06/14) Subjective Pt was seen for Dr Beverly In NAD Objective Last 24 Hour Vital Signs Date Time Temp Pulse Resp B/P Pulse Ox O2 Delivery O2 Flow Rate FiO2 10/09/16 10:00 75 31 129/74 92 Nasal Cannula 4.0 10/09/16 09:00 75 26 117/70 98 Nasal Cannula 2.0 10/09/16 08:10 Nasal Cannula 2.0 28 10/09/16 08:10 95 Nasal Cannula 2.0 28 10/09/16 08:10 71 20 Nasal Cannula 2.0 28 10/09/16 08:00 71 10/09/16 08:00 97.5 72 25 113/72 95 Nasal Cannula 2.0 10/09/16 07:00 61 25 93/57 98 Nasal Cannula 2.0 10/09/16 06:00 68 25 102/64 98 Nasal Cannula 2.0 10/09/16 05:00 68 25 106/69 98 Nasal Cannula 2.0 10/09/16 04:00 97.9 69 26 117/70 98 Nasal Cannula 2.0 10/09/16 04:00 73 10/09/16 03:00 74 33 106/55 98 Nasal Cannula 2.0 10/09/16 02:00 69 30 105/67 98 Nasal Cannula 2.0 10/09/16 01:00 75 29 130/73 96 Nasal Cannula 2.0 10/09/16 00:00 74 7/4/17 00:00 97.6 73 28 124/74 95 Nasal Cannula 2.0 10/08/16 23:00 75 29 129/74 96 Nasal Cannula 2.0 10/08/16 22:00 74 28 114/72 97 Nasal Cannula 2.0 10/08/16 21:00 73 27 116/73 98 Nasal Cannula 2.0 10/08/16 20:00 72 10/08/16 20:00 98.1 73 30 113/71 100 Nasal Cannula 2.0 10/08/16 20:00 113/71 10/08/16 19:30 98 Nasal Cannula 2.0 28 10/08/16 19:30 Nasal Cannula 2.0 28 10/08/16 19:30 72 20 Nasal Cannula 2.0 28 10/08/16 19:00 67 24 121/71 97 Nasal Cannula 2.0 10/08/16 18:00 70 24 119/70 97 Nasal Cannula 2.0 10/08/16 17:00 73 26 129/75 97 Nasal Cannula 2.0 10/08/16 16:00 73 10/08/16 16:00 98.3 75 25 111/70 100 Nasal Cannula 2.0 10/08/16 15:00 76 26 125/83 95 Nasal Cannula 2.0 10/08/16 14:00 75 25 121/75 96 Nasal Cannula 2.0 10/08/16 13:00 73 26 107/60 100 Nasal Cannula 2.0 Intake and Output 10/08/16 10/09/16 19:00 07:00 Intake Total 2925.833 ml 2885.83 ml Output Total 985 ml 810 ml Balance 1940.833 ml 2075.83 ml Free Water 1200 ml 1200 ml IV Total 1365.833 ml 1295.83 ml Tube Feeding 360 ml 360 ml Other 30 ml Output Urine Total 985 ml 810 ml # Bowel Movements 2 Laboratory Tests 10/09/16 04:35: White Blood Count 7.9, Red Blood Count 2.69L, Hemoglobin 8.7L, Hematocrit 27.6L , Mean Corpuscular Volume 103H, Mean Corpuscular Hemoglobin 32.3H, Mean Corpuscular Hemoglobin Concent 31.4L, Red Cell Distribution Width 18.8H, Platelet Count 164, Mean Platelet Volume 6.1L, Neutrophils (%) (Auto) , Lymphocytes (%) (Auto) , Monocytes (%) (Auto) , Eosinophils (%) (Auto) , Basophils (%) (Auto) , Sodium Level 140, Potassium Level 3.2L, Chloride Level 106, Carbon Dioxide Level 29, Anion Gap 5, Blood Urea Nitrogen 16, Creatinine 0.8, Estimat Glomerular Filtration Rate > 60, Glucose Level 122H, Calcium Level 10.5H, Phosphorus Level 2.2L, Magnesium Level 1.7, Total Bilirubin 0.5, Aspartate Amino Transf (AST/SGOT) 26, Alanine Aminotransferase (ALT/SGPT) 22, Alkaline Phosphatase 65, Total Protein 6.8, Albumin 2.3L, Globulin 4.5, Albumin/ Globulin Ratio 0.5L 10/09/16 07:42: Arterial Blood pH 7.379, Arterial Blood Partial Pressure CO2 52.6H, Arterial Blood Partial Pressure O2 64.0L, Arterial Blood HCO3 30.3H, Arterial Blood Oxygen Saturation 85.6L, Arterial Blood Base Excess 4.4, Edmundo Test Positive Height (Feet): 6 Height (Inches): 0.00 Weight (Pounds): 200 Cardiovascular: normal rate Respiratory/Chest: rhonchi - bilaterally Edema: 1+ Generalized YEIMI MARTINEZ Oct 09, 2016 12:58
[2016-10-09] MEDS ORDERED: oxyCODONE 15mg IR tab GT PRN (13:00)
[2016-10-09] MEDS ORDERED: Morphine Sulfate 2mg/ml Inj IVP PRN (13:00)
--- NOTE | 2016-10-09 15:00 | Consultation ---
Consult Note Consult Note ID DIC # [id number] PAVITHRA HAYES M.D. Oct 09, 2016 15:00
[2016-10-09] MEDS ORDERED: Dyna-Hex 2% Top Sol 8oz TOPIC SCH (17:00)
--- NOTE | 2016-10-09 20:30 | General Progress Note ---
Assessment/Plan Assessment/Plan ASSESSMENT/RECS: 1. 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 Anthony. Potential metastasis in the upper airway field, agree will need outpatient management with oncology, Dr. Anthony is aware 2. Anemia secondary to chronic disease. ferritin is elevated --> hgb goal >7 2. Acute respiratory failure, s/p intubation, BiPAP, is now in the ICU ---> has been extubated, out of the ICU, on BiPAP prn 3. Anemia of malignancy 4. Hepatitis C. 5. Major depressive disorder. 6. Hypertension. 7. Malnutrition. 8. Hypercalcemia --> agree with pamidronate as well as iv fluids, will recheck cmp 9. Aspiration pneumonia. 10. Endocarditis. Subjective Constitutional: Reports: no symptoms HEENT: Reports: no symptoms Cardiovascular: Reports: no symptoms Respiratory: Reports: no symptoms Gastrointestinal/Abdominal: Reports: no symptoms Genitourinary: Reports: no symptoms Neurologic/Psychiatric: Reports: no symptoms Endocrine: Reports: no symptoms Allergies: Coded Allergies: NO KNOWN DRUG ALLERGIES (Verified Allergy, Unknown, 03/06/14) Subjective transferred out of ICU, on BiPAP prn d/t desat Objective Last 24 Hour Vital Signs Date Time Temp Pulse Resp B/P Pulse Ox O2 Delivery O2 Flow Rate FiO2 10/09/16 20:00 98.4 91 18 107/72 99 10/09/16 19:25 Non-Rebreather 15.0 100 10/09/16 19:24 94 Non-Rebreather 15.0 100 10/09/16 19:23 69 20 Non-Rebreather 15.0 100 10/09/16 16:00 97.9 70 24 103/60 98 Non-Rebreather 15.0 10/09/16 16:00 76 10/09/16 12:00 97.9 70 25 105/63 95 Nasal Cannula 4.0 10/09/16 12:00 69 10/09/16 10:00 75 31 129/74 92 Nasal Cannula 4.0 10/09/16 09:00 75 26 117/70 98 Nasal Cannula 2.0 10/09/16 08:10 Nasal Cannula 2.0 28 10/09/16 08:10 95 Nasal Cannula 2.0 28 10/09/16 08:10 71 20 Nasal Cannula 2.0 28 10/09/16 08:00 71 10/09/16 08:00 97.5 72 25 113/72 95 Nasal Cannula 2.0 10/09/16 07:00 61 25 93/57 98 Nasal Cannula 2.0 10/09/16 06:00 68 25 102/64 98 Nasal Cannula 2.0 10/09/16 05:00 68 25 106/69 98 Nasal Cannula 2.0 10/09/16 04:00 97.9 69 26 117/70 98 Nasal Cannula 2.0 10/09/16 04:00 73 10/09/16 03:00 74 33 106/55 98 Nasal Cannula 2.0 10/09/16 02:00 69 30 105/67 98 Nasal Cannula 2.0 10/09/16 01:00 75 29 130/73 96 Nasal Cannula 2.0 10/09/16 00:00 74 10/09/16 00:00 97.6 73 28 124/74 95 Nasal Cannula 2.0 10/08/16 23:00 75 29 129/74 96 Nasal Cannula 2.0 10/08/16 22:00 74 28 114/72 97 Nasal Cannula 2.0 10/08/16 21:00 73 27 116/73 98 Nasal Cannula 2.0 Intake and Output 10/08/16 10/09/16 19:00 07:00 Intake Total 2925.833 ml 2885.83 ml Output Total 985 ml 810 ml Balance 1940.833 ml 2075.83 ml Free Water 1200 ml 1200 ml IV Total 1365.833 ml 1295.83 ml Tube Feeding 360 ml 360 ml Other 30 ml Output Urine Total 985 ml 810 ml # Bowel Movements 2 Laboratory Tests 10/09/16 04:35: White Blood Count 7.9, Red Blood Count 2.69L, Hemoglobin 8.7L, Hematocrit 27.6L , Mean Corpuscular Volume 103H, Mean Corpuscular Hemoglobin 32.3H, Mean Corpuscular Hemoglobin Concent 31.4L, Red Cell Distribution Width 18.8H, Platelet Count 164, Mean Platelet Volume 6.1L, Neutrophils (%) (Auto) , Lymphocytes (%) (Auto) , Monocytes (%) (Auto) , Eosinophils (%) (Auto) , Basophils (%) (Auto) , Sodium Level 140, Potassium Level 3.2L, Chloride Level 106, Carbon Dioxide Level 29, Anion Gap 5, Blood Urea Nitrogen 16, Creatinine 0.8, Estimat Glomerular Filtration Rate > 60, Glucose Level 122H, Calcium Level 10.5H, Phosphorus Level 2.2L, Magnesium Level 1.7, Total Bilirubin 0.5, Aspartate Amino Transf (AST/SGOT) 26, Alanine Aminotransferase (ALT/SGPT) 22, Alkaline Phosphatase 65, Total Protein 6.8, Albumin 2.3L, Globulin 4.5, Albumin/ Globulin Ratio 0.5L 10/09/16 07:42: Arterial Blood pH 7.379, Arterial Blood Partial Pressure CO2 52.6H, Arterial Blood Partial Pressure O2 64.0L, Arterial Blood HCO3 30.3H, Arterial Blood Oxygen Saturation 85.6L, Arterial Blood Base Excess 4.4, Edmundo Test Positive Height (Feet): 6 Height (Inches): 0.00 Weight (Pounds): 200 General Appearance: no apparent distress EENT: PERRL/EOMI Neck: normal alignment Cardiovascular: normal rate Respiratory/Chest: chest wall non-tender Abdomen: non tender Edema: no edema noted Pedal (L), no edema noted Pedal (R) Leonardo Martin Oct 09, 2016 20:30
[2016-10-09] MEDS ORDERED: Miralax 17gm pkt GT PRN (21:00)
[2016-10-09] MEDS ORDERED: Fluconazole 100mg tab GT SCH (21:00)
--- NOTE | 2016-10-09 21:45 | Consultation ---
DATE OF CONSULTATION: INFECTIOUS DISEASES CONSULTATION CONSULTING PHYSICIAN: Julius Gonzalez M.D. REFERRING PHYSICIAN: Giana Jose M.D. REASON FOR CONSULTATION: Evaluation of the patient for pneumonia, sepsis, and antibiotic management. HISTORY OF PRESENT ILLNESS: The patient is a 65-year-old male with multiple medical problems, as listed below, who was admitted to this medical center five days ago due to altered level of consciousness. The patient was admitted to this medical center for further workup. The patient's chest x-ray showed left lower lobe infiltrate that has worsened. The patient has been started on IV antibiotics. Infectious Disease consultation has been requested for further evaluation of the patient and antibiotic management. PAST MEDICAL HISTORY: 1. History of hepatitis B. 2. Hypertension. 3. CVA. 4. Depression. 5. Erectile dysfunction. 6. History of left-sided hip pain and sciatica. 7. Right inguinal hernia. MEDICATIONS: IV Diflucan, vancomycin, and Zosyn. ALLERGIES: No known drug allergies. FAMILY HISTORY: Unavailable. REVIEW OF SYSTEMS: Unobtainable. The patient is nonverbal at the time of my exam. PHYSICAL EXAMINATION: VITAL SIGNS: Temperature 97.5 degrees, blood pressure 129/74, pulse 83, and respiratory rate 18. HEENT: No pale conjunctivae. No icterus. NECK: No lymphadenopathy. CHEST: Clear. HEART: S1 and S2. ABDOMEN: Soft and nontender. EXTREMITIES: No cyanosis. NEUROLOGIC: Nonverbal. LABORATORY DATA: White blood cells 7.6, hemoglobin 8.7, and platelets 164,000. UA unremarkable. BUN 16 and creatinine 0.8. AST and ALT mildly elevated. Alkaline phosphatase within normal range. antigen 165. Stool for C. difficile negative. Chest x-ray showed increased left-sided pleural effusion versus infiltrate. CT of the head shows chronic changes. No acute process. ASSESSMENT: The patient is a 65-year-old male with multiple medical problems with, 1. Left-sided pneumonia, possible aspiration pneumonia. 2. Possible metabolic encephalopathy. PLAN: 1. We will continue the patient on vancomycin, Zosyn, and Diflucan for now. 2. Monitor CBC. 3. Monitor BMP. 4. We will send cultures (blood, urine, and sputum). 5. Monitor chest x-ray. 6. Based on the patient's clinical course and labs, we will do further recommendations. Thank you Dr. Jose for allowing me to participate in the care of this patient. I will follow the patient with you during this hospitalization. Julius Gonzalez M.D. DR: MARCO JOB#: [id number] CC:
[2016-10-10] VITALS (24 sets, daily range): BP systolic 57–117; BP diastolic 39–75
[2016-10-10 00:39] LABS: ABG ALLEN TEST POSITIVE; ABG PCO2 64.5 mmHg (35.0-45.0)
[2016-10-10] MEDS ORDERED: Levophed 4mg/4mL Inj IV ONE ×4 (00:48→06:32)
--- NOTE | 2016-10-10 02:02 | Emergency Room Report ---
History of Present Illness General Chief Complaint: Altered Level of Consciousness Source: Medical Record Present Illness HPI This is an unfortunate 65-year-old woman who admitted for sepsis respiratory failure was intubated. He self extubated himself. 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 He has no connection to his family. I responded to a CODE BLUE because his respiratory status decompensated as well as his heart rate. On my arrival patient already received 1 mg of epinephrine and had CPR. He had good response with epinephrine with spontaneous return a pulse. I proceeded to intubate the patient. Later on blood pressure was hypotensive and patient was placed on Levophed. I then placed a central line. Allergies: Coded Allergies: NO KNOWN DRUG ALLERGIES (Verified Allergy, Unknown, 03/06/14) Patient History Past Medical History: see triage record, old chart reviewed Past Surgical History: other Pertinent Family History: none Social History: Reports: alcohol use Immunizations: other Reviewed Nursing Documentation: PMH: Agreed, PSxH: Agreed Nursing Documentation-PMH Past Medical History Deferred: Pt Cognitively Impaired Past Medical History: No History, Except For Hx Cardiac Problems: Yes Hx Hypertension: Yes Hx Cancer: Yes Hx Gastrointestinal Problems: Yes Hx Neurological Problems: Yes Hx Cerebrovascular Accident: Yes Hx Paralysis: Yes Review of Systems Respiratory: Reports: shortness of breath All Other Systems: limited - Secondary to condition Physical Exam Vital Signs Date Time Temp Pulse Resp B/P Pulse Ox O2 Delivery O2 Flow Rate FiO2 10/01/16 13:01 99.0 88 14 106/72 99 Room Air 10/02/16 12:00 2.0 10/02/16 19:30 21 patient is hypotensive Sp02 EP Interpretation: reviewed, normal General Appearance: severe distress, cachetic, Chronically Ill, Stupor Head: normocephalic, atraumatic Eyes: bilateral eye PERRL ENT: other - Yellowish purulent sputum Neck: other - Stiff Respiratory: crackles, rhonchi, other - Agonal respiration. Diffuse crackles and rhonchi Cardiovascular #1: regular rate, rhythm, no murmur Gastrointestinal: other - G-tube Musculoskeletal: back normal Neurologic: other - Lower extremity contracted Skin: warm/dry Procedures Critical Care Time Critical Care Time Critical care is mandated in this patient who presented with cardiac arrest. Patient require my urgent intervention to attenuate the risks of metabolic collapse which may lead to cardiovascular collapse and . Critical care time is 35 minutes excluding any reportable procedure. Critical care time included evaluation, multiple reevaluation, looking at old charts, interpreting laboratory and diagnostic data, discussing case with patient and family and consultants, and charting. Central Line Central Line : Consent: Emergent Central Line Lumen: triple Maximal Sterile Barrier Tech: yes cap, yes mask, yes sterile gown, yes sterile gloves, yes large sterile sheet, yes hand hygiene, yes chlorhexidine prep No Max Barrier Tech Because: emergency insertion Central Line Postion: femoral (R) Complications: none Central Line Post Position: sutured, good blood return Attempts: One Patient Tolerated: Well Complications: None CPR/Code Blue CPR/Code Blue Narrative please see code sheet full form medication. Patient received CPR and one dose of epinephrine. Good spontaneous return of pulse. Intubation Intubation : Consent: Emergent Intubation Method: orotracheal Tube Size (cm): 8.0 Medications: Etomidate, Succinylcholine Breath Sounds after Intubation: equal Intubation Complications: no complications Post Intubation Xray: Yes Progress/Xray Impression: Endotracheal tube in good position. Bilateral infiltrates. Attempts: One Patient Tolerated: Well Complications: None Medical Decision Making Diagnostic Impression: Primary Impression: Sepsis Qualified Codes: A41.9 - Sepsis, unspecified organism Additional Impressions: Cardiac arrest Septic shock Respiratory failure requiring intubation ER Course With cardiac arrest and respiratory failure. He was intubated. Placed on ventilator. Blood pressure low so levophed was started. Central line done. I contacted Dr. Jose and discussed case with him. Chest X-Ray Diagnostic Results Chest X-Ray Diagnostic Results : Chest X-Ray Ordered: Yes # of Views/Limited/Complete: 1 View Indication: Other - Post intubation EP Interpretation: Yes Interpretation: other - Bilateral infiltrates. Endotracheal tube in good position. No foreign body. Impression: Other - Endotracheal tube in good position. Bilateral infiltrates, worsening Interpreting ER Provider: Electronically signed by Marco Beaver MD Last Vital Signs Date Time Temp Pulse Resp B/P Pulse Ox O2 Delivery O2 Flow Rate FiO2 10/10/16 01:32 88/52 10/10/16 00:49 60 20 100 10/09/16 23:56 97.9 97 10/09/16 21:41 Full Face 10/09/16 19:25 15.0 Status: improved Disposition: ADMITTED INPATIENT Condition: Critical Referrals: LALEZARI,CLAUDIA M.D. (PCP) MARCO BEAVER M.D. Oct 10, 2016 02:02
[2016-10-10] MEDS ORDERED: Vasopressin 100 UNITS in NS 95 ML IV SCH (03:45)
[2016-10-10] MEDS: Vancomycin 1.25 GM in D5W 275 ML IVPB SCH (04:38)
[2016-10-10] MEDS: Piperacillin/Tazobactam 3.375 GM in NS 110 ML IVPB SCH (06:07)
[2016-10-10 06:55] LABS: MEAN CORPUSCULAR HEMOGLOBIN 32.2 PG (27.0-31.0); MEAN CORPUSCULAR HGB CONC 30.4 G/DL (32.0-36.0); MEAN CORPUSCULAR VOLUME 106 FL (80-99); MEAN PLATELET VOLUME 6.1 FL (6.5-10.1); PLATELET COUNT 215 K/UL (150-450); RED BLOOD COUNT 2.66 M/UL (4.70-6.10); RED CELL DISTRIBUTION WIDTH 18.7 % (11.6-14.8); WHITE BLOOD COUNT 2.9 K/UL (4.8-10.8)
[2016-10-10 07:07] LABS: ALANINE AMINOTRANSFERASE 19 U/L (3-41); ALBUMIN/GLOBULIN RATIO 0.4 (1.0-2.7); ANION GAP 7 (5-15); ASPARTATE AMINO TRANSFERASE 23 U/L (5-40); CARBON DIOXIDE 29 mEQ/L (20-30); CHLORIDE 108 mEQ/L (98-107); GLOMERULAR FILTRATION RATE > 60 mL/min (>60); HEMOLYSIS 6; MAGNESIUM 1.6 mg/dL (1.7-2.5); POTASSIUM 3.3 mEQ/L (3.4-4.9); SODIUM 144 mEQ/L (135-145)
[2016-10-10 08:34] LABS: ABG ALLEN TEST POSITIVE; ABG BASE EXCESS 0.6; ABG PCO2 58.9 mmHg (35.0-45.0)
[2016-10-10 08:47] LABS: LYMPHOCYTES % (MANUAL) 7 % (20-45); METAMYELOCYTES % 2 % (0-0); NUCLEATED RED BLOOD CELLS 2 /100 WBC
[2016-10-10 08:48] LABS: ANISOCYTOSIS 2+; BAND NEUTROPHILS % (MANUAL) 12 % (0-8); BASOPHILS % (MANUAL) 0 % (0-2); EOSINOPHILS % (MANUAL) 0 % (0-3); HYPOCHROMASIA 2+; MACROCYTES 1+; NEUTROPHILS % (MANUAL) 76 % (45-75); PLATELET ESTIMATE ADEQUATE; PLATELET MORPHOLOGY NORMAL; TOTAL CELLS COUNTED 100
[2016-10-10] MEDS: Heparin 5000 units/ml inj SUBQ SCH (08:48)
[2016-10-10] MEDS ORDERED: Tamsulosin 0.4mg cap GT SCH (09:00)
[2016-10-10] MEDS ORDERED: Timoptic 0.25% Op Soln 2.5ml BOTH EYES SCH (09:00)
[2016-10-10] MEDS ORDERED: Miralax 17gm pkt GT SCH (09:00)
[2016-10-10] MEDS ORDERED: Potassium Phosphate 30 MM in Sodium Chloride 550 ML IV ONE (10:00)
--- NOTE | 2016-10-10 10:07 | Pulmonolgy Critical Care Note ---
Critical Care - Asmt/Plan Problems: (1) Acute respiratory failure (2) PNA (pneumonia) (3) Metabolic encephalopathy (4) Severe anemia (5) Hypercalcemia (6) senior living resident (7) Feeding by G-tube (8) CVA (cerebral infarction) (9) Hepatitis B Respiratory: monitor respiratory rate, CXR Cardiac: continue to monitor HR/BP Renal: F/U I&O, keep IV fluid, increase IV fluid, check electrolytes, other - NS at 100 cc.hour Infectious Disease: check cultures, continue antibiotics Gastrointestinal: hold feedings Endocrine: check TSH, continue sliding scale insulin Hematologic: transfuse if hgb<8.5 Neurologic: PRN Ativan, keep patient comfortable Affect: PRN ativan Disposition: keep in ICU Notes Reviewed: news wire photo operator, renal Discussed with: nurses, consultants, nurse case managementemployee relations manager - Objective Last 24 Hour Vital Signs Date Time Temp Pulse Resp B/P Pulse Ox O2 Delivery O2 Flow Rate FiO2 10/10/16 10:00 98/54 10/10/16 09:30 62 21 87/53 81 Mechanical Ventilator 100 10/10/16 09:00 73 21 99/63 81 Mechanical Ventilator 100 10/10/16 08:57 117/80 10/10/16 08:37 75 22 100 10/10/16 08:30 73 18 96/68 87 Mechanical Ventilator 100 10/10/16 08:12 100 10/10/16 08:00 100 10/10/16 08:00 62 10/10/16 08:00 115/75 10/10/16 08:00 97.4 74 26 115/75 83 Mechanical Ventilator 100 10/10/16 07:30 69 23 100/64 80 Mechanical Ventilator 100 10/10/16 07:00 73 23 117/62 79 Mechanical Ventilator 100 10/10/16 06:47 93/53 10/10/16 06:35 70 25 100 10/10/16 06:34 70 23 Mechanical Ventilator 100 10/10/16 06:30 78 22 93/53 73 Mechanical Ventilator 100 10/10/16 06:00 88/56 10/10/16 06:00 66 26 80/56 81 Mechanical Ventilator 100 10/10/16 05:30 64 26 93/59 80 Mechanical Ventilator 100 10/10/16 05:15 72 28 100 10/10/16 05:00 93.9 65 23 95/53 78 Mechanical Ventilator 100 10/10/16 05:00 95/53 10/10/16 04:30 59 23 64/42 75 Mechanical Ventilator 100 10/10/16 04:19 68/45 10/10/16 04:00 62 26 63/42 76 Mechanical Ventilator 100 10/10/16 04:00 62 10/10/16 04:00 63/42 10/10/16 03:30 55 26 67/51 78 Mechanical Ventilator 100 10/10/16 03:27 56 25 100 10/10/16 03:00 57 22 86/51 79 Mechanical Ventilator 100 10/10/16 03:00 86/51 10/10/16 02:30 59 24 79/44 75 Mechanical Ventilator 100 10/10/16 02:00 108/69 10/10/16 02:00 83 25 108/69 81 Mechanical Ventilator 100 10/10/16 01:32 88/52 10/10/16 01:30 94 23 98/71 90 Mechanical Ventilator 100 10/10/16 01:00 68 19 88/42 92 Mechanical Ventilator 100 10/10/16 00:49 60 20 100 10/10/16 00:30 51 18 57/49 Mechanical Ventilator 100 10/10/16 00:00 55 10/10/16 00:00 100 10/10/16 00:00 55 20 68/39 88 Mechanical Ventilator 100 10/09/16 23:56 97.9 89 20 111/76 97 10/09/16 23:36 60 20 100 10/09/16 21:41 68 35 89 Full Face 100 10/09/16 20:00 98.4 91 18 107/72 99 10/09/16 20:00 68 10/09/16 19:25 Non-Rebreather 15.0 100 10/09/16 19:24 94 Non-Rebreather 15.0 100 10/09/16 19:23 69 20 Non-Rebreather 15.0 100 10/09/16 16:00 97.9 70 24 103/60 98 Non-Rebreather 15.0 10/09/16 16:00 76 10/09/16 12:00 97.9 70 25 105/63 95 Nasal Cannula 4.0 10/09/16 12:00 69 Status: awake Condition: critical HEENT: atraumatic, normocephalic Neck: full ROM Lungs: clear Heart: HR/BP stable, regular Abdomen: soft, active bowel sounds, feeding tube Extremities: edema Micro: Microbiology Date/Time Source Procedure Growth Status 10/09/16 15:00 Urine,Clean Catch Urine Culture - Preliminary NO GROWTH Resulted Accucheck: 98 Critical Care - Subjective ROS Limited/Unobtainable: Yes ICU Day: 2 Intubation Day: 2 Interval Events: coded and reintubated and transferred back to ICU yesterday. EKG Rhythm: Sinus Rhythm FI02: 100 Vent Support Breath Rate: 15 Vent Support Mode: AC Vent Tidal Volume: 700 Sputum Amount: Small PEEP: 5.0 PIP: 41 Secretions: small Tube Feeding Amount: 0 I&O: Intake and Output 10/09/16 10/10/16 19:00 07:00 Intake Total 2011.6 ml 1483.65 ml Output Total 660 ml Balance 1351.6 ml 1483.65 ml Free Water 400 ml IV Total 1241.6 ml 1393.65 ml Tube Feeding 360 ml 90 ml Other 10 ml Output Urine Total 660 ml # Voids 205 # Bowel Movements 2 CXR: extensive infiltrate, ET in good position. ET-Tube: 8.0 ET Position: 25 Labs: Laboratory Tests Test 10/10/16 00:30 10/10/16 05:00 10/10/16 08:25 Arterial Blood pH 7.225 (7.350-7.450) 7.290 (7.350-7.450) Arterial Blood Partial Pressure CO2 64.5 mmHg (35.0-45.0) *H 58.9 mmHg (35.0-45.0) *H Arterial Blood Partial Pressure O2 70.2 mmHg (75.0-100.0) L 64.0 mmHg (75.0-100.0) L Arterial Blood HCO3 26.1 mmol/L (22.0-26.0) H 27.7 mmol/L (22.0-26.0) H Arterial Blood Oxygen Saturation 90.8 % (92.0-98.0) L 84.0 % (92.0-98.0) L Arterial Blood Base Excess -2.0 0.6 Edmundo Test Positive Positive White Blood Count 2.9 K/UL (4.8-10.8) #L Red Blood Count 2.66 M/UL (4.70-6.10) L Hemoglobin 8.6 G/DL (14.2-18.0) L Hematocrit 28.2 % (42.0-52.0) L Mean Corpuscular Volume 106 FL (80-99) H Mean Corpuscular Hemoglobin 32.2 PG (27.0-31.0) H Mean Corpuscular Hemoglobin Concent 30.4 G/DL (32.0-36.0) L Red Cell Distribution Width 18.7 % (11.6-14.8) H Platelet Count 215 K/UL (150-450) Mean Platelet Volume 6.1 FL (6.5-10.1) L Neutrophils (%) (Auto) % (45.0-75.0) Lymphocytes (%) (Auto) % (20.0-45.0) Monocytes (%) (Auto) % (1.0-10.0) Eosinophils (%) (Auto) % (0.0-3.0) Basophils (%) (Auto) % (0.0-2.0) Differential Total Cells Counted 100 Neutrophils % (Manual) 76 % (45-75) H Lymphocytes % (Manual) 7 % (20-45) L Monocytes % (Manual) 3 % (1-10) Eosinophils % (Manual) 0 % (0-3) Basophils % (Manual) 0 % (0-2) Metamyelocytes % 2 % (0-0) H Band Neutrophils 12 % (0-8) H Nucleated Red Blood Cells 2 /100 WBC Platelet Estimate Adequate Platelet Morphology Normal Hypochromasia 2+ Anisocytosis 2+ Macrocytosis 1+ Sodium Level 144 mEQ/L (135-145) Potassium Level 3.3 mEQ/L (3.4-4.9) L Chloride Level 108 mEQ/L (98-107) H Carbon Dioxide Level 29 mEQ/L (20-30) Anion Gap 7 (5-15) Blood Urea Nitrogen 20 mg/dL (7-23) Creatinine 1.0 mg/dL (0.7-1.2) Estimat Glomerular Filtration Rate > 60 mL/min (>60) Glucose Level 81 mg/dL (74-106) Calcium Level 10.0 mg/dL (8.6-10.2) Phosphorus Level 4.0 mg/dL (2.5-4.8) Magnesium Level 1.6 mg/dL (1.7-2.5) L Total Bilirubin 0.5 mg/dL (0.0-1.2) Aspartate Amino Transf (AST/SGOT) 23 U/L (5-40) Alanine Aminotransferase (ALT/SGPT) 19 U/L (3-41) Alkaline Phosphatase 44 U/L (40-129) Total Protein 6.0 g/dL (6.6-8.7) L Albumin 1.9 g/dL (3.5-5.2) L Globulin 4.1 g/dL Albumin/Globulin Ratio 0.4 (1.0-2.7) L TORSTEN WILLETT Oct 10, 2016 10:07
--- NOTE | 2016-10-10 11:39 | Diagnostic Imaging Report ---
Indication: Intubation Comparison: Earlier the same day A single view chest radiograph was obtained. Findings: Endotracheal tube is in good position. Extensive bilateral airspace opacification demonstrated. Interval collapse of the left upper lobe demonstrated. Heart size is difficult to evaluated but grossly unchanged. Impression: Endotracheal tube in good position. Worsening airspace disease
--- NOTE | 2016-10-10 12:06 | Emergency Room Report ---
Physical Exam A code blue was called. Patient on levophed and vasopressin. He had coded last night also. ABG without significant acidosis last. Also K+ not high last check. Bradycardia prior to asystole. Epi X3 had been given prior to my arrival. Last 24 Hour Vital Signs Date Time Temp Pulse Resp B/P Pulse Ox O2 Delivery O2 Flow Rate FiO2 10/10/16 11:25 88/50 10/10/16 11:00 69 22 116/67 79 Mechanical Ventilator 100 10/10/16 10:51 62 16 100 10/10/16 10:30 66 21 88/57 75 Mechanical Ventilator 100 10/10/16 10:00 98/54 10/10/16 10:00 65 21 111/75 72 Mechanical Ventilator 100 10/10/16 09:30 62 21 87/53 81 Mechanical Ventilator 100 10/10/16 09:00 73 21 99/63 81 Mechanical Ventilator 100 10/10/16 08:57 117/80 10/10/16 08:37 75 22 100 10/10/16 08:30 73 18 96/68 87 Mechanical Ventilator 100 10/10/16 08:12 100 10/10/16 08:00 100 10/10/16 08:00 62 10/10/16 08:00 115/75 10/10/16 08:00 97.4 74 26 115/75 83 Mechanical Ventilator 100 10/10/16 07:30 69 23 100/64 80 Mechanical Ventilator 100 10/10/16 07:00 73 23 117/62 79 Mechanical Ventilator 100 10/10/16 06:47 93/53 10/10/16 06:35 70 25 100 10/10/16 06:34 70 23 Mechanical Ventilator 100 10/10/16 06:30 78 22 93/53 73 Mechanical Ventilator 100 10/10/16 06:00 88/56 10/10/16 06:00 66 26 80/56 81 Mechanical Ventilator 100 10/10/16 05:30 64 26 93/59 80 Mechanical Ventilator 100 10/10/16 05:15 72 28 100 10/10/16 05:00 93.9 65 23 95/53 78 Mechanical Ventilator 100 10/10/16 05:00 95/53 10/10/16 04:30 59 23 64/42 75 Mechanical Ventilator 100 10/10/16 04:19 68/45 10/10/16 04:00 62 26 63/42 76 Mechanical Ventilator 100 10/10/16 04:00 62 10/10/16 04:00 63/42 10/10/16 03:30 55 26 67/51 78 Mechanical Ventilator 100 10/10/16 03:27 56 25 100 10/10/16 03:00 57 22 86/51 79 Mechanical Ventilator 100 10/10/16 03:00 86/51 10/10/16 02:30 59 24 79/44 75 Mechanical Ventilator 100 10/10/16 02:00 108/69 10/10/16 02:00 83 25 108/69 81 Mechanical Ventilator 100 10/10/16 01:32 88/52 10/10/16 01:30 94 23 98/71 90 Mechanical Ventilator 100 10/10/16 01:00 68 19 88/42 92 Mechanical Ventilator 100 10/10/16 00:49 60 20 100 10/10/16 00:30 51 18 57/49 Mechanical Ventilator 100 10/10/16 00:00 55 10/10/16 00:00 100 10/10/16 00:00 55 20 68/39 88 Mechanical Ventilator 100 10/09/16 23:56 97.9 89 20 111/76 97 10/09/16 23:36 60 20 100 10/09/16 21:41 68 35 89 Full Face 100 10/09/16 20:00 98.4 91 18 107/72 99 10/09/16 20:00 68 10/09/16 19:25 Non-Rebreather 15.0 100 10/09/16 19:24 94 Non-Rebreather 15.0 100 10/09/16 19:23 69 20 Non-Rebreather 15.0 100 10/09/16 16:00 97.9 70 24 103/60 98 Non-Rebreather 15.0 10/09/16 16:00 76 Sp02 EP Interpretation: reviewed, normal General Appearance: other - unresponsive Head: normocephalic, atraumatic Eyes: bilateral eye other - fixed dilated ENT: moist mucus membranes, other - ET Neck: other - blaccid Respiratory: other - BS bilat (no pneumo clinically) Cardiovascular #1: other - no heart sounds Cardiovascular #2: 1+ femoral (R) - only with CPR - CVP present Gastrointestinal: abnormal bowel sounds - abscent Genitourinary: other - callahan Neurologic: other - unresponsive and flaccid Psychiatric: other - comatose Skin: pallor, cyanosis CPR/Code Blue CPR/Code Blue Narrative Code Blue at 11:50. PEA. Asystole at 11:51. Epi X3 (last dose when I arrived). CPR under my direct supervision. CPR with pulses - asystole without CPR. Epi repeated. Patient asystolic. Patient demonstrates cardiopulmonary unresponsiveness - clear medical futility. Code called and patient pronounced at 12:00. Some agonal beats after stop - no pulses. Medical Decision Making Diagnostic Impression: Primary Impression: Cardiopulmonary arrest ER Course Patient on pressors with deteriorating BP. Bradycardic then asystolic arrest. Reversible causes: acidosis, hyperkalemia not present. Patient pronounced at 12:00. Dr. Jose notified. Rhythm Strip Diag. Results EP Interpretation: yes Rhythm: other - asystole, 3 leads Asystole, no pulses, no blood pressure Status: worsened Disposition: Condition: Referrals: SHREYAS HARRIS M.D. (PCP) Shreyas Ferguson M.D. Oct 10, 2016 12:06
--- NOTE | 2016-10-10 12:44 | Diagnostic Imaging Report ---
Indication: Dyspnea Comparison: 10/09/2016 A single view chest radiograph was obtained. Findings: Extensive, progressively worsening airspace disease demonstrated within the lungs bilaterally. Also evidence of a right pleural effusion now clearly seen. The heart is enlarged. Endotracheal tube remains in good position. Impression: Extensive worsening bilateral airspace disease. Right pleural effusion
--- NOTE | 2016-10-10 14:27 | Discharge Summary ---
Discharge Summary Hospital Course Date of Admission Oct 01, 2016 at 14:30 Date of Discharge Admitting Diagnosis Infiltrates/ALOC HPI Alicia Solorio is a 65 year old male who was admitted on Oct 01, 2016 at 14:30 for Infiltrates/Altered Level Of Consciousness d/c summary dictated [id number] Discharge Condition Upon Discharge: stable Discharge Disposition patient on 10/10/16 Discharge Diagnoses: CLAUDIA HARRIS M.D. Oct 10, 2016 14:27
[2016-10-10] MEDS ORDERED: Tubing IV Secondary IV ONE ×2 (14:42)
[2016-10-10] MEDS ORDERED: EPINEPHrine 1mg/10ml Syringe IV ONE ×2 (14:42)
[2016-10-10] MEDS ORDERED: Succinylcholine 20mg/ml 10ml vial ONE (14:42)
[2016-10-10] MEDS ORDERED: Atropine Sulfate 0.4mg/ml inj 20ML ONE (14:42)
[2016-10-10] MEDS ORDERED: NS 275ml ONE (14:42)
[2016-10-10] MEDS ORDERED: Etomidate 40mg/20ml Inj IV ONE (14:42)
--- NOTE | 2016-10-10 23:45 | Discharge Summary ---
DATE OF ADMISSION: 10/01/2016 DATE OF DISCHARGE: 10/10/2016 DISCHARGE NOTE/ NOTE BRIEF HOSPITAL COURSE AND SUMMARY: This is a 65-year-old male who I have known for a long time as my office patient, who has a history of CVA, hypertension, glaucoma, hepatitis B, major depressive disorder, hyperlipidemia, CKD stage 3, tonsillar squamous cell carcinoma, status post PEG placement for dysphagia, status post radiation and chemotherapy, who was brought to the emergency room from his appointment with oncologist for altered mental status. The patient was found to have aspiration pneumonia. He had a CAT scan of his lungs that showed bilateral aspiration pneumonia as well as possible lung metastasis. The patient had an outpatient PET scan that also showed hypermetabolic activity in the lungs suggestive of lung metastasis. The patient had metabolic encephalopathy likely secondary to pneumonia and hypercalcemia of malignancy, for which he was treated for. He was empirically started on Zosyn and vancomycin. 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 The patient became critically ill and developed septic shock likely secondary to aspiration pneumonia and was transferred to the ICU on 10/09/2016. He was started on Levophed as well as vasopressin. Code Blue was called on 10/10/2016, and the patient went into cardiac arrest. He was intubated while in the ICU and had septic shock. However, unfortunately, despite CPR, he did pass. He received 1 mg of epinephrine with spontaneous return of pulse and then he was intubated; however, later, the patient became more hypotensive on 10/10/2016 at 2 a.m. Later that morning at approximately 12:06 p.m., the patient had a cardiac arrest and unfortunately did not recover with CPR. CAUSE OF : 1. 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 2. Septic shock secondary to aspiration pneumonia. 3. Respiratory failure secondary to aspiration pneumonia. Shreyas Beverly MD DR: JARED JOB#: [id number] CC:
[2016-10-11 11:10] LABS: VITAMIN D 25-OH TOTAL 18 ng/mL (.)
== END 2016-10-10 14:43 | disposition expired | DRG 208 ==
LOC: EDBD 13:01 → EDUNIT# 13:01 → EMR 13:55 → 2E 14:30 → EDBEDREQ 18:33 → 2E 10-03 10:37 → 4W 10-03 23:41 → 2W 10-07 09:00 → ICU 10-07 11:09 → 2W 10-09 11:35 → ICU 10-09 23:14
DX: J69.0 Pneumonitis due to inhalation of food and vomit (principal); J96.01 Acute respiratory failure with hypoxia; R65.21 Severe sepsis with septic shock; E43 Unspecified severe protein-calorie malnutrition; A41.9 Sepsis, unspecified organism; G92 Toxic encephalopathy; I95.9 Hypotension, unspecified; C78.02 Secondary malignant neoplasm of left lung; C78.01 Secondary malignant neoplasm of right lung; I38 Endocarditis, valve unspecified; R13.10 Dysphagia, unspecified; Z93.1 Gastrostomy status; C02.9 Malignant neoplasm of tongue, unspecified; R62.7 Adult failure to thrive; Z68.24 Body mass index [BMI] 24.0-24.9, adult; D64.9 Anemia, unspecified; E83.52 Hypercalcemia; Z78.1 Physical restraint status; I10 Essential (primary) hypertension; E78.5 Hyperlipidemia, unspecified; H40.9 Unspecified glaucoma; C11.1 Malignant neoplasm of posterior wall of nasopharynx; D63.0 Anemia in neoplastic disease; F32.9 Major depressive disorder, single episode, unspecified; G89.29 Other chronic pain; M54.9 Dorsalgia, unspecified; E87.6 Hypokalemia; Z86.19 Personal history of other infectious and parasitic diseases; Z86.73 Personal history of transient ischemic attack (TIA), and cerebral infarction without residual deficits
CPT/HCPCS: 36415; 36600; 70450; 71010; 71250; 80048; 80053; 80202; 80300; 80329; 81003; 82270; 82306; 82330; 82378; 82550; 82607; 82728; 82746; 82803; 82962; 83519; 83540; 83550; 83605; 83615; 83735; 83880; 83970; 84100; 84443; 84484; 85007; 85025; 85044; 85060; 85384; 85610; 85651; 85730; 86850; 86870; 86880; 86900; 86901; 87040; 87070; 87081; 87086; 87181; 87205; 87324; 92950; 93005; 93306; 94002; 94003; 94640; 94664; 94760; J0171; J2430; J7620; J8499